=== PATIENT | female | born 1950 | race Caucasian/White ===

== ENCOUNTER 2023-08-19 16:22 | Emergency (ER) | payer MEDICARE, SELFPAY ==
--- NOTE | 2023-08-19 16:27 | ED.GENADULT ---
HPI - General Adult General Chief complaint: Psychiatric Symptoms Stated complaint: crisis eval Source: patient and family (patient's ) Mode of arrival: wheelchair Limitations: no limitations History of Present Illness HPI narrative: Patient is a 72 year old assigned female at with a history of fibromyalgia presenting to the emergency department today with fixed paranoid delusions. Patient's states that the patient is having delusions that she needs help with. Patient's states that the patient is convinced that she is being electrocuted in her house and her neighbors are trying to kill her. Patient denies any dizziness, lightheadedness, abdominal pain, nausea, vomiting, fever, chills, blurry vision, double vision, loss of vision, chest pain, difficulty breathing, shortness of breath, back pain, night sweats, pain with urination, increased urinary frequency, increased urinary urgency, blood in her urine or stool, syncope or a near syncopal episode, recent trauma or falls, bowel incontinence, bladder incontinence, bowel retention, bladder retention, or any other complaints at this time. Onset (ago): week(s) Relieving factors: none Exacerbating factors: none Associated symptoms: denies other symptoms Treatments prior to arrival: none Related Data Allergies Allergy/AdvReac Type Severity Reaction Status Date / Time cefaclor [From [facility]] Allergy Anaphylaxis Verified 08/19/23 16:33 Review of Systems Constitutional: Constitutional: Reports no additional constitutional complaints, Denies chills, Denies fever(s) and Denies night sweats Eyes: Eyes: Reports no additional eye complaints, Denies blurry vision, Denies change in vision, Denies diplopia, Denies eye discharge, Denies loss of vision and Denies eye pain ENT: Denies dizziness Cardiovascular: Cardiovascular: Reports no additional cardiovascular complaints, Denies chest pain, Denies lightheadedness, Denies Loss of Consciousness and Denies dyspnea Respiratory: Respiratory: Reports no additional respiratory complaints and Denies dyspnea Gastrointestinal: Gastrointestinal: Reports no additional gastrointestinal complaints, Denies abdominal pain, Denies melena, Denies hematochezia, Denies change in bowel habits and Denies change in stool character Genitourinary: Genitourinary: Denies hematuria, Denies urinary frequency, Denies dysuria, Denies urinary incontinence, Denies urinary hesitancy and Denies urinary urgency Musculoskeletal: Musculoskeletal: Reports no additional musculoskeletal complaints, Denies numbness and Denies tingling Neurologic: Denies dizziness, Denies loss of vision, Denies numbness and Denies tingling Psychiatric: Psychiatric: Reports paranoia Endocrine: Endocrine: Reports no additional endocrine complaints Hematologic/Lymphatic: Hematologic/Lymphatic: Reports no additional hematologic/lymphatic complaints Allergic/Immunologic: Allergic/Immunologic: Reports no additional allergic/immunologic complaints PMFSH Past Medical History Attestation statement: The following information was validated with the patient. (all information validated with the patient's ) Source: old records reviewed, obtained from family (patient's provided additional history and confirmed the history provided by the patient.) and nursing notes reviewed Social History Social History Advance Directives: No Physical Exam ED Vital Signs: Vital Signs - 24 hr 08/19/23 16:29 08/19/23 20:06 Temperature 97.7 F 98.3 F Pulse Rate 53 61 Respiratory Rate 16 16 Blood Pressure 93/42 L 164/53 H Pulse Oximetry 97 95 Oxygen Delivery Method Room Air Room Air BMI result Body Mass Index 16.6 Const General: cooperative, no acute distress, alert and awake Nutritional Appearance: well nourished Orientation/consciousness: patient oriented x3 Limitations: no limitations HENMT Head: Yes normal to inspection and Yes atraumatic Ears: hearing grossly normal bilaterally and external ears normal General nose exam: Normal external nose present, no nasal discharge noted and no epistaxis Face and sinus: Yes normal facial exam, No abrasion and No laceration Mouth: Normal oral and palatal mucosa present, no drooling and no muffled voice Eyes General: appearance normal, both eyes and all related structures Periorbital: periorbital findings normal Eyelids: Yes eyelids normal Conjunctivae: conjunctivae normal Pupils: Equal, round and reactive pupils present EOM: EOMs intact bilaterally Neck Neck: Yes normal visual inspection, Yes full ROM and Yes no lymphadenopathy Chest Chest palpation & inspection: normal inspection of the chest Resp Effort & Inspection: normal respiratory effort and able to speak in complete sentences GI Inspection: Yes normal to inspection Neuro General: patient oriented x3 and moves all extremities Cranial nerves: Yes Equal, round and reactive pupils present Cognition (Neuro): normal cognition Motor exam (neuro): 5/5 motor strength present throughout Sensory Exam: Normal double simultaneous stimulation for sensation Coordination: [id number] test normal Extrem General: Yes normal to inspection, Yes full ROM and Yes capillary refill normal Psych Speech and movement: Normal speech and movement present Attitude: cooperative Thought content: Paranoid delusions present Course Course Course Narrative: RME performed by Rosa Denise PA-C. Patient is a 72 year old assigned female at presenting to the emergency department with fixed delusions. Patient believes that she is being electrocuted in her home and her neighbors are trying to kill her. Labs and swabs ordered. Patient placed back in the waiting room pending room availability and results. Medical Decision Making Medical Decision Making MDM Narrative: Patient is a 72 year old assigned female at with a history of fibromyalgia presenting to the emergency department today with paranoid delusions. Patient's physical exam showed an individual with paranoid delusions but was otherwise unremarkable. Patient's blood work was unremarkable. Patient's EKG was unremarkable. Patient and her left the department without completing treatment. Patient and her left before myself or any of the other emergency department providers could review or explain physical exam findings, test results, need or lack there of for additional testing, CARE team evaluation, treatment options, or any treatment plans. Differential Diagnosis Differential Diagnoses: The differential diagnosis associated with the presentation includes Paranoid delusions Delusions Cognitive decline Dementia Admission/Observation Consideration of admission/observation: Escalation of care including admission/observation considered Patient and her left the department without completing treatment and therefore left before an admission decision could be made. Lab Data MDM Lab Attestation statement: I reviewed the patient's lab results. My interpretation of these studies and their corresponding values is that they are grossly normal. 08/19/23 17:38 08/19/23 17:38 Labs: Lab Results 08/19/23 Range/Units 17:38 WBC 8.9 (4.8-10.8) X10*3/uL RBC 4.06 L (4.20-5.50) X10*6/uL Hgb 11.8 L (12.0-16.0) g/dl Hct 38.5 (37.0-47.0) % MCV 94.8 (80.0-98.0) fL MCH 29.1 (27.0-33.0) pg MCHC 30.6 L (31.0-35.0) g/dl RDW 13.3 (11.0-16.0) % Plt Count 282 (160-400) X10*3/uL MPV 9.5 (9.4-12.3) fL Immature Gran % (Auto) 0.3 (0.0-0.4) % Neut % (Auto) 56.0 (45-73) % Lymph % (Auto) 28.3 (20-40) % [place]ock % (Auto) 5.9 (2-11) % Eos % (Auto) 8.2 H (0-4) % Baso % (Auto) 1.3 (0-2) % Lymph # (Auto) 2.5 (1.2-4.9) X10*3/uL [place]ock # (Auto) 0.5 (0.1-1.2) X10*3/uL Eos # (Auto) 0.7 H (0.0-0.4) X10*3/uL Baso # (Auto) 0.1 (0.0-0.2) X10*3/uL Abs Immat Gran (auto) 0.03 (0.00-0.03) X10*3/uL Absolute Neuts (auto) 5.0 (2.0-8.3) x10*3/uL Absolute Nucleated RBC 0.000 (0.0-0.012) X10*3/uL Nucleated RBC % (auto) 0.0 (0.0-0.2) /100WBC Sodium 142 (135-145) mmol/L Potassium 3.8 (3.3-5.1) mmol/L Chloride 106 (96-108) mmol/L Carbon Dioxide 29 (22-29) mmol/L Anion Gap 11 L (12-20) BUN 12 (9-16) mg/dL Creatinine 1.04 (0.5-1.4) mg/dL Estim Creat Clear Calc 34.4 Estimated GFR 52 Random Glucose 84 (60-115) mg/dL Calcium 8.9 (8.4-10.2) mg/dL Total Bilirubin 0.3 (0.0-1.0) mg/dL AST 30 (5-31) U/L ALT 14 (0-31) U/L Alkaline Phosphatase 72 (39-117) U/L Total Protein 7.7 (6.5-8.0) g/dL Albumin 4.2 (3.5-5.0) g/dL Salicylates < 5.0 L (15-30) mg/dL Acetaminophen 4 (<30) mcg/mL Ethyl Alcohol < 10 mg/dL COVID-19 (MARIO) Negative (Negative) COVID-19 Clin Com See Note Independent Interpretation I performed an independent interpretation of an: EKG Interpretation: Vent. Rate: 051 BPM Atrial Rate: 051 BPM P-R Int: 152 ms QRS Dur: 082 ms QT Int: 462 ms P-R-T Axes: 048 075 -61 degrees QTc Int: 425 ms Sinus bradycardia Possible Left atrial enlargement Possible Lateral infarct , age undetermined T wave abnormality, consider inferior ischemia Abnormal ECG No previous ECGs available DD/ 1727 Independent Historian Clinical information obtained from an independent historian. History obtained from or confirmed by: Spouse (patient's provided additional history and confirmed the history provided by the patient.) Discharge Plan Discharge Clinical Impression: Paranoid delusion Patient Disposition: Left W/O Completing Treatment Interventions: [place]-Suicide Risk Severity Scale Last Done: 08/19/23 22:32 Discharge Date/Time: 08/19/23 22:33
[2023-08-19 16:29] VITALS: BP 93/42; PULSE 53; RESP 16; TEMP 36.5; O2SAT 97; BMI 16.6
--- NOTE | 2023-08-19 16:30 | ECG_ITS ---
Test Reason : med clearance Blood Pressure : / mmHG Vent. Rate : 051 BPM Atrial Rate : 051 BPM P-R Int : 152 ms QRS Dur : 082 ms QT Int : 462 ms P-R-T Axes : 048 075 -61 degrees QTc Int : 425 ms Sinus bradycardia Possible Left atrial enlargement Possible Lateral infarct , age undetermined T wave abnormality, consider inferior ischemia Abnormal ECG No previous ECGs available Referred By: Rosa Denise Electronically Signed By:DAMION HERNANDES
[2023-08-19 17:43] LABS: MANUAL DIFF FLAG NO
[2023-08-19 17:45] LABS: Basophils Absolute Auto 0.1 X10*3/uL (0.0-0.2); Basophils Percent Auto 1.3 % (0-2); Eosinophils Absolute Auto 0.7 X10*3/uL (0.0-0.4); Eosinophils Percent Auto 8.2 % (0-4); Hematocrit 38.5 % (37.0-47.0); Hemoglobin 11.8 g/dl (12.0-16.0); Imm Gran Abs Auto 0.03 X10*3/uL (0.00-0.03); Imm Gran Pct Auto 0.3 % (0.0-0.4); Lymphocytes Absolute Auto 2.5 X10*3/uL (1.2-4.9); Lymphocytes Percent Auto 28.3 % (20-40); Mean Corpuscular HGB Conc 30.6 g/dl (31.0-35.0); Mean Corpuscular Hemoglobin 29.1 pg (27.0-33.0); Mean Corpuscular Volume 94.8 fL (80.0-98.0); Mean Platelet Volume 9.5 fL (9.4-12.3); Monocytes Absolute Auto 0.5 X10*3/uL (0.1-1.2); Monocytes Percent Auto 5.9 % (2-11); Platelet Count 282 X10*3/uL (160-400); Red Blood Count 4.06 X10*6/uL (4.20-5.50); Red Cell Distribution Width 13.3 % (11.0-16.0); White Blood Count 8.9 X10*3/uL (4.8-10.8)
[2023-08-19 18:00] LABS: Alanine Aminotransferase 14 U/L (0-31); Albumin Level 4.2 g/dL (3.5-5.0); Alkaline Phosphatase 72 U/L (39-117); Anion Gap 11 (12-20); Aspartate Amino Transferase 30 U/L (5-31); Bilirubin Total 0.3 mg/dL (0.0-1.0); Blood Urea Nitrogen 12 mg/dL (9-16); Calcium 8.9 mg/dL (8.4-10.2); Carbon Dioxide 29 mmol/L (22-29); Chloride 106 mmol/L (96-108); Creatinine Clr Calc Pharmacy 34.4; Estimated Glomerular Filt Rate 52; Ethanol < 10 mg/dL; Glucose Random 84 mg/dL (60-115); Potassium 3.8 mmol/L (3.3-5.1); Sodium 142 mmol/L (135-145); Total Protein 7.7 g/dL (6.5-8.0)
[2023-08-19 18:01] LABS: Acetaminophen LAB 4 mcg/mL (<30); Salicylate < 5.0 mg/dL (15-30)
[2023-08-19 18:05] LABS: COVID-19 Test Negative (Negative); IDNOW Serial# BCCEAD1C
[2023-08-19 20:06] VITALS: BP 164/53; PULSE 61; RESP 16; TEMP 36.8; O2SAT 95
--- NOTE | 2023-08-19 22:28 | PC.NURSE ---
No answer in the WR, calling pts cell phone with no answer.
--- NOTE | 2023-08-19 22:32 | PC.NURSE ---
Per MELISSA Howie, pt denied SI during Triage.
== END 2023-08-19 22:33 | disposition left against medical advice (07) ==
LOC: HO.ED 22:21
PROVIDERS: Physician Assistant Medical; Emergency Provider Emergency Medicine; PCP Internal Medicine
DX: F22 Delusional disorders (principal); R00.1 Bradycardia, unspecified; Z11.52 Encounter for screening for COVID-19; Z20.822 Contact with and (suspected) exposure to COVID-19; Z79.899 Other long term (current) drug therapy
CPT/HCPCS: 80053; 80143; 80179; 80307; 85025; 87635; 93005; 99283

== ENCOUNTER → 2023-08-19 16:30 | Outpatient (BNV) | payer MEDICARE, SELFPAY | PROVIDERS: Emergency Provider Emergency Medicine; PCP Internal Medicine; Visit Provider Internal Medicine | DX: R00.1 Bradycardia, unspecified (principal); R94.31 Abnormal electrocardiogram [ECG] [EKG] | CPT/HCPCS: 93010 ==

== ENCOUNTER 2023-08-24 18:01 | Inpatient (IN) | payer MEDICARE, OTHER, SELFPAY ==
--- NOTE | ~2023-08-24 | XR_ITS ---
EXAMINATION: XR LEFT HIP WITH AP PELVIS XR KNEE, LEFT XR ANKLE, LEFT CLINICAL INFORMATION: Mechanical fall. Pain everywhere. COMPARISON: None TECHNIQUE: AP and frog-leg lateral views of the left hip and an AP view of the pelvis. AP and lateral views of the left knee. AP, lateral, and oblique views of the left ankle. FINDINGS: Pelvis and left hip: No fracture. Hip joint spaces are well maintained. Alignment is anatomic. Sacroiliac joints and pubic symphysis are normal. Bones are osteopenic. Small subtle foci of soft tissue calcification are present at the greater trochanteric insertion of the hip abductors. There is degenerative disc disease in the lower lumbar spine with associated facet arthropathy. Left knee: No fracture or malalignment. Minimal patellofemoral and medial compartment osteoarthritis with small marginal osteophytes. Subchondral cystic changes present at the patella. Lateral compartment is unremarkable. Minimal enthesopathic spurring at the quadriceps tendon insertion. Left ankle: Soft tissue swelling at the left ankle is most pronounced laterally on the lateral malleolus anteromedially at the distal tibial metaphysis. There are focal areas of cortical irregularity at the medial malleolus and lateral malleolar tip which are most concerning for nondisplaced fractures. The medial malleolar fracture is a horizontal orientation and extends to the articular surface. Lateral malleolar fracture are likely involves the distal tip without appreciable involvement of the syndesmosis. No additional fractures are identified. Small enthesopathic spur is present at the Achilles tendon insertion on the calcaneus. XR/XR ankle LT 2V IMPRESSION: 1. Subtle nondisplaced fractures of the left medial and lateral malleoli with marked surrounding soft tissue swelling. 2. No acute fracture or malalignment at the pelvis, left hip, and left knee. 3. Minimal osteoarthritis in the left knee. 4. Degenerative disc disease in the lower lumbar spine. 5. Osteopenia.
--- NOTE | ~2023-08-24 | CT_ITS ---
EXAMINATION: CT HEAD WITHOUT CONTRAST CLINICAL INFORMATION: Altered mental status COMPARISON: None. TECHNIQUE: Contiguous axial imaging was performed from the skull base to vertex without intravenous administration of contrast. Coronal and sagittal reformatted images are performed at the CT scanner. [This CT examination was performed using dose optimization techniques as appropriate, variously including the following: *Automated exposure control *Adjustment of mA and/or kV according to patient size (this includes techniques or standardized protocols for targeted exams where dose is matched to indication/reason for exam; i.e. extremities or head) *Use of iterative reconstruction technique] DLP: 599 mGy-cm. FINDINGS: There is no evidence of acute intracranial hemorrhage or territorial infarction. No abnormal mass-effect or midline shift is seen. Mathew to white matter differentiation is well preserved. No extra-axial fluid collections are identified. The ventricles are normal in size. There is no abnormal attenuation within the brain parenchyma. There is no osseous abnormality. The mastoid air cells and visualized portions of the paranasal sinuses are well-aerated. CT/CT head/brain wo IV con IMPRESSION: No acute intracranial pathology.
--- NOTE | ~2023-08-24 | XR_ITS ---
EXAMINATION: XR LEFT HIP WITH AP PELVIS XR KNEE, LEFT XR ANKLE, LEFT CLINICAL INFORMATION: Mechanical fall. Pain everywhere. COMPARISON: None TECHNIQUE: AP and frog-leg lateral views of the left hip and an AP view of the pelvis. AP and lateral views of the left knee. AP, lateral, and oblique views of the left ankle. FINDINGS: Pelvis and left hip: No fracture. Hip joint spaces are well maintained. Alignment is anatomic. Sacroiliac joints and pubic symphysis are normal. Bones are osteopenic. Small subtle foci of soft tissue calcification are present at the greater trochanteric insertion of the hip abductors. There is degenerative disc disease in the lower lumbar spine with associated facet arthropathy. Left knee: No fracture or malalignment. Minimal patellofemoral and medial compartment osteoarthritis with small marginal osteophytes. Subchondral cystic changes present at the patella. Lateral compartment is unremarkable. Minimal enthesopathic spurring at the quadriceps tendon insertion. Left ankle: Soft tissue swelling at the left ankle is most pronounced laterally on the lateral malleolus anteromedially at the distal tibial metaphysis. There are focal areas of cortical irregularity at the medial malleolus and lateral malleolar tip which are most concerning for nondisplaced fractures. The medial malleolar fracture is a horizontal orientation and extends to the articular surface. Lateral malleolar fracture are likely involves the distal tip without appreciable involvement of the syndesmosis. No additional fractures are identified. Small enthesopathic spur is present at the Achilles tendon insertion on the calcaneus. XR/XR hip LT w PEL1V IMPRESSION: 1. Subtle nondisplaced fractures of the left medial and lateral malleoli with marked surrounding soft tissue swelling. 2. No acute fracture or malalignment at the pelvis, left hip, and left knee. 3. Minimal osteoarthritis in the left knee. 4. Degenerative disc disease in the lower lumbar spine. 5. Osteopenia.
--- NOTE | ~2023-08-24 | XR_ITS ---
EXAMINATION: XR CHEST CLINICAL INFORMATION: Cough. COMPARISON: None available. TECHNIQUE: Frontal view of the chest was obtained. FINDINGS: The cardiomediastinal silhouette is within normal limits. There is mild diffuse increased interstitial markings. There is no focal lung consolidation or pleural effusion. The bony structures and soft tissues are unremarkable. XR/XR chest 1V IMPRESSION: Mild diffuse increased markings suspected to be chronic. No focal lung consolidation or pleural effusion
--- NOTE | ~2023-08-24 | XR_ITS ---
EXAMINATION: XR CHEST CLINICAL INFORMATION: Cough, SOB, Covid positive COMPARISON: None available. TECHNIQUE: Frontal view of the chest was obtained. FINDINGS: The lungs are hyperinflated and clear of acute pneumonic process. Focal haziness is seen in the left upper lobe and right upper lobe question postsurgical changes. There is increased interstitial markings in both lungs. There is a 3 mm nodule right midlung. There is no pleural effusion. The heart size and pulmonary vascularity is normal. There is mild dextroscoliosis mid lumbar spine XR/XR chest 1V IMPRESSION: Hyperinflated lungs with no acute consolidation. Mild focal haziness in both upper lobes question postsurgical changes. Correlate clinically. Small 3 mm nodule right midlung.
--- NOTE | ~2023-08-24 | CT_ITS ---
EXAMINATION: CT HEAD WITHOUT CONTRAST CLINICAL INFORMATION: Head injury. COMPARISON: None available. TECHNIQUE: Contiguous axial imaging was performed from the skull base to vertex without intravenous administration of contrast. This CT examination was performed using dose optimization techniques as appropriate, variously including the following: *Automated exposure control *Adjustment of mA and/or kV according to patient size (this includes techniques or standardized protocols for targeted exams where dose is matched to indication/reason for exam; i.e. extremities or head) *Use of iterative reconstruction technique DLP: 573 mGy-cm FINDINGS: There is no acute intra-axial, extra-axial bleed, masses or midline shift. There is no acute infarction evolution. There is no edema. The garcia to white matter differentiation is maintained normal. The lateral ventricles are symmetrical in size and configuration without enlargement. Bone windows reveal no calvarial abnormality. There is no scalp soft tissue abnormality. Bilateral paranasal sinuses and mastoid air cells are well-aerated. CT/CT head/brain wo IV con IMPRESSION: No acute intracranial process seen. .
[2023-08-24 18:37] VITALS: BP 156/62; PULSE 58; RESP 16; TEMP 36.1; O2SAT 97; BMI 17.8
--- NOTE | 2023-08-24 19:30 | ED_ITS ---
HPI - Psych General Chief Complaint: Behavioral Concerns Stated Complaint: in pain, behavioral Time Seen by Provider: 08/24/23 19:29 Source: patient and family Mode of arrival: ambulatory Limitations: no limitations History of Present Illness HPI Narrative: Patient with multiple comorbid conditions including major depression been to various hospitals for last few months for paronoia , was seen at [facility] 05/03/2023 admitted seen by psychiatrist diagnose as unspecified psychotic disorder, major depressive disorder advised to start on olanzapine 2.5 mg t.i.d. comes here as patient has been very paranoid and delusional have a problem with neighbors wants her feel that she is sitting on a chair giving her electric shocks. Denied any SI or HI Related Data Allergies Allergy/AdvReac Type Severity Reaction Status Date / Time cefaclor [From Ceclor] Allergy Anaphylaxis Verified 08/19/23 16:33 Review of Systems 2 Review of Systems: Yes all other systems are reviewed and are negative PMFSH Past Medical History Medical History Chronic back pain Hypothyroidism Takotsubo cardiomyopathy Asthma Latent tuberculosis Major depression Interstitial lung disease Sjogren syndrome with lung involvement Social History Social History Smoked in Last 30 Days: No Use of substances other than those prescribed or required for medical reasons: No Advance Directives: Yes Advance Directives Information Provided: No Advance Directives on File: No Physical Exam 2 Vital Signs: Vital Signs: Last Vital Signs Temp 98.5 F 08/25/23 01:26 Pulse 77 08/25/23 01:26 Resp 16 08/25/23 01:26 BP 114/42 L 08/25/23 01:26 Pulse Ox 98 08/25/23 01:26 O2 Del Method Room Air 08/25/23 01:26 BMI result Body Mass Index 17.8 Appearance: Alert. Oriented X3. No acute distress. Eyes: PERRLA, No Nystagmus ENT: Pharynx normal. Oral Mucosa moist Neck: Normal inspection. Neck supple. CVS: Normal heart rate and rhythm. Pulses normal. Respiratory: No respiratory distress. Equal air entry bilateral, no wheezing/rales/rhonchi Abdomen: Soft and nontender. Bowel sounds are present, no mass palpable, no CVA tenderness Skin: Skin warm and dry. Normal skin color. Normal skin turgor. Extremities: No lower extremity edema. No calf tenderness psych: Mood stable irrational thoughts mini-mental status exam with mild dementia forgetful 1/3 in 3 minutes , fair judgment no hallucinations Neuro: Oriented X 3. No motor deficit. No sensory deficit.No cerebellar signs , cranial nerves II-XII intact Medical Decision Making Medical Decision Making [facility] Narrative: Patient is psychotic disorder NOS with depression with slight dementia clinical was seen at [facility] advised to start on Zyprexa which she is not taking patient's is frustrated unable to manage at home will consult care team and starting Zyprexa 2.5 mg 3 times a day Differential Diagnosis Differential Diagnoses: The differential diagnosis associated with the presentation includes Psychotic disorder NOS/depression/dementia Lab Data [facility] Lab Attestation statement: I reviewed the patient's lab results. 08/24/23 19:55 08/24/23 19:55 Labs: Lab Results 08/24/23 Range/Units 19:55 WBC 10.7 (4.8-10.8) X10*3/uL RBC 3.61 L (4.20-5.50) X10*6/uL Hgb 10.8 L (12.0-16.0) g/dl Hct 34.5 L (37.0-47.0) % MCV 95.6 (80.0-98.0) fL MCH 29.9 (27.0-33.0) pg MCHC 31.3 (31.0-35.0) g/dl RDW 13.3 (11.0-16.0) % Plt Count 280 (160-400) X10*3/uL MPV 9.9 (9.4-12.3) fL Immature Gran % (Auto) 0.3 (0.0-0.4) % Neut % (Auto) 60.3 (45-73) % Lymph % (Auto) 20.6 (20-40) % [place] % (Auto) 7.4 (2-11) % Eos % (Auto) 10.4 H (0-4) % Baso % (Auto) 1.0 (0-2) % Lymph # (Auto) 2.2 (1.2-4.9) X10*3/uL [place] # (Auto) 0.8 (0.1-1.2) X10*3/uL Eos # (Auto) 1.1 H (0.0-0.4) X10*3/uL Baso # (Auto) 0.1 (0.0-0.2) X10*3/uL Abs Immat Gran (auto) 0.03 (0.00-0.03) X10*3/uL Absolute Neuts (auto) 6.5 (2.0-8.3) x10*3/uL Absolute Nucleated RBC 0.000 (0.0-0.012) X10*3/uL Nucleated RBC % (auto) 0.0 (0.0-0.2) /100WBC Sodium 142 (135-145) mmol/L Potassium 4.2 (3.3-5.1) mmol/L Chloride 111 H (96-108) mmol/L Carbon Dioxide 24 (22-29) mmol/L Anion Gap 11 L (12-20) BUN 16 (9-16) mg/dL Creatinine 1.00 (0.5-1.4) mg/dL Estim Creat Clear Calc 38.4 Estimated GFR 54 Random Glucose 103 (60-115) mg/dL Calcium 8.9 (8.4-10.2) mg/dL Total Bilirubin 0.2 (0.0-1.0) mg/dL Direct Bilirubin < 0.2 (0.0-0.5) mg/dL AST 24 (5-31) U/L ALT 15 (0-31) U/L Alkaline Phosphatase 66 (39-117) U/L Total Protein 7.4 (6.5-8.0) g/dL Albumin 4.1 (3.5-5.0) g/dL Lipase 23 (8-78) U/L Urine Color Yellow Urine Appearance Clear Urine pH 5.5 (5.0-9.0) Ur Specific Morton >= 1.030 H (1.005-1.025) Urine Protein Trace (Neg-Trace) mg/dL Urine Glucose (UA) Negative (Negative) mg/dL Urine Ketones Negative (Negative) mg/dL Urine Blood Negative (Negative) Urine Nitrite Negative (Negative) Ur Leukocyte Esterase Negative (Negative) Influenza Type A (PCR) NEGATIVE (Negative) Influenza Type B (PCR) NEGATIVE (Negative) RSV RNA Qual (PCR) NEGATIVE (Negative) SARS-CoV-2 RNA (RT-PCR) NEGATIVE (Negative) Independent Interpretation I performed an independent interpretation of an: CT Scan Interpretation: No acute Radiology Impression Discussion of test interpretation with radiology: I have reviewed the radiologist's reading. Discharge Plan Discharge Clinical Impression: Psychotic disorder, Major depression Patient Disposition: Still a Patient
[2023-08-24 19:42] VITALS: BP 108/54; PULSE 65; RESP 16; TEMP 37.2; O2SAT 93
--- NOTE | 2023-08-24 19:57 | MHC.EDTECH ---
This pct just assumed care of pt vitals taken ,pt was assist unto bedside commode ,urine sample collected ,blood draw ,rsv/covid swab collected and sent to lab .
[2023-08-24 20:01] LABS: MANUAL DIFF FLAG NO
[2023-08-24 20:04] LABS: Appearance Urine Clear; Color Urine Yellow; Glucose Urine UA Negative (Negative); Leukocyte Esterase Urine Negative (Negative); Nitrite Urine Negative (Negative); PH 5.5 (5.0-9.0); Specific Gravity - Urine >= 1.030 (1.005-1.025); Urine Blood Negative (Negative); Urine Ketones Negative (Negative); Urine Protein Trace mg/dL (Neg-Trace)
[2023-08-24 20:14] LABS: Basophils Absolute Auto 0.1 X10*3/uL (0.0-0.2); Eosinophils Absolute Auto 1.1 X10*3/uL (0.0-0.4); Eosinophils Percent Auto 10.4 % (0-4); Hematocrit 34.5 % (37.0-47.0); Hemoglobin 10.8 g/dl (12.0-16.0); Imm Gran Abs Auto 0.03 X10*3/uL (0.00-0.03); Imm Gran Pct Auto 0.3 % (0.0-0.4); Lymphocytes Absolute Auto 2.2 X10*3/uL (1.2-4.9); Lymphocytes Percent Auto 20.6 % (20-40); Mean Corpuscular HGB Conc 31.3 g/dl (31.0-35.0); Mean Corpuscular Hemoglobin 29.9 pg (27.0-33.0); Mean Corpuscular Volume 95.6 fL (80.0-98.0); Mean Platelet Volume 9.9 fL (9.4-12.3); Monocytes Absolute Auto 0.8 X10*3/uL (0.1-1.2); Monocytes Percent Auto 7.4 % (2-11); Neutrophils Absolute Auto 6.5 x10*3/uL (2.0-8.3); Neutrophils Percent Auto 60.3 % (45-73); Platelet Count 280 X10*3/uL (160-400); Red Blood Count 3.61 X10*6/uL (4.20-5.50); Red Cell Distribution Width 13.3 % (11.0-16.0); White Blood Count 10.7 X10*3/uL (4.8-10.8)
[2023-08-24 20:18] LABS: Alanine Aminotransferase 15 U/L (0-31); Albumin Level 4.1 g/dL (3.5-5.0); Alkaline Phosphatase 66 U/L (39-117); Anion Gap 11 (12-20); Aspartate Amino Transferase 24 U/L (5-31); Bilirubin Direct < 0.2 mg/dL (0.0-0.5); Bilirubin Total 0.2 mg/dL (0.0-1.0); Blood Urea Nitrogen 16 mg/dL (9-16); Calcium 8.9 mg/dL (8.4-10.2); Carbon Dioxide 24 mmol/L (22-29); Chloride 111 mmol/L (96-108); Creatinine Clr Calc Pharmacy 38.4; Estimated Glomerular Filt Rate 54; Glucose Random 103 mg/dL (60-115); Lipase 23 U/L (8-78); Potassium 4.2 mmol/L (3.3-5.1); Sodium 142 mmol/L (135-145); Total Protein 7.4 g/dL (6.5-8.0)
[2023-08-24 20:39] LABS: Influenza A PCR NEGATIVE (Negative); Influenza B PCR NEGATIVE (Negative); Resp Syncy Virus RNA Qual PCR NEGATIVE (Negative); SARS COV2 PCR INHOUSE NEGATIVE (Negative)
[2023-08-25 01:26] VITALS: BP 114/42; PULSE 77; RESP 16; TEMP 36.9; O2SAT 98
--- NOTE | 2023-08-25 01:51 | PC.NURSE ---
assist pt out of bed and onto bedside commode. pt back in bed at this time, resting comfortably
--- NOTE | 2023-08-25 02:09 | MHC.EDTECH ---
VITALS TAKEN ,PATIENT BELONGING LIST ,PT HAD A ROSA VALERIANO AND ORANGE JUICE TO DRINK
--- NOTE | 2023-08-25 03:08 | PC.NURSE ---
pt resting quietly with eyes closed, breathing even and unlabored, no apparent distress noted at this time
--- NOTE | 2023-08-25 03:50 | PC.NURSE ---
per MD [place], med rec done according to [facility] discharge paperwork from D/C 05/06/23. pt unable to accurately confirm meds. [facility] report in chart.
--- NOTE | 2023-08-25 04:34 | PC.NURSE ---
belongings in pod- locker 12 , 2 small pill cases with unknown pills placed in purse, oxycodone bottle will be brought to pharmacy
[2023-08-25 05:00] VITALS: RESP 16
[2023-08-25 07:08] VITALS: BP 125/55; PULSE 73; RESP 16; TEMP 37; O2SAT 93
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
--- NOTE | 2023-08-25 11:04 | PHA.MEDREC ---
Pharmacy Consult ? Medication Reconciliation Pharmacy has completed the medication reconciliation. RN DID MED REC USING DISCHARGE SUMMARY FROM APRIL. PATIENT WAS NOT FILLING MOST OF THOSE MEDS BEFORE OR AFTER TIME THERE. PATIENT IS UNRELIABLE. SPOKE TO PA, WILL CHANGE DOSE OF ZOLOFT AND LEVOTHYROXINE
[2023-08-25 12:14] VITALS: BP 167/69; PULSE 66; RESP 16; O2SAT 98
[2023-08-25] MEDS: OLANZapine 2.5 MG TABLET PO (12:15)
[2023-08-25] MEDS: Sertraline HCL 25 MG TABLET PO (12:15)
[2023-08-25] MEDS: Atorvastatin Calcium 40 MG TABLET PO (12:15)
[2023-08-25] MEDS: oxyCODONE HCl Immed Release 15 MG TABLET PO (12:15)
[2023-08-25] MEDS: Aspirin Enteric Coated 81 MG TABLET.DR PO (12:15)
--- NOTE | 2023-08-25 12:20 | PC.NURSE ---
pt medicated with zyprea NILTONN. pt up to the commode, reporting that the floor is shocking her. getting distressed that she cannot stand on the floor. reporting also that the air is electric and is hurting her skin. pt disorganized and delusional .
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
[2023-08-25] MEDS: Omeprazole 40 MG CAPSULE.DR PO (16:38)
[2023-08-25] MEDS: Dicyclomine HCl 10 MG CAPSULE 20 MG PO ×2 (16:38→21:47)
--- NOTE | 2023-08-25 18:48 | PC.NURSE ---
pt resting in bed at this time, NAD, skin PWD. dinner placed at bedside as pt appears to be resting with eyes closed. plan for admit to [facility] tomorrow 08/26. pt ambulates to commode with standby assist.
[2023-08-25 20:17] VITALS: BP 147/53; PULSE 74; RESP 18; TEMP 37.2; O2SAT 100
[2023-08-25 21:46] VITALS: BP 110/49; PULSE 81
[2023-08-25] MEDS: risperiDONE 0.5 MG TABLET PO (21:47)
--- NOTE | 2023-08-25 22:00 | PC.NURSE ---
pt bp 110/49 HR 81 at time this rn attempting to medicate pt with metoprolol 12.5mg , this rn consulted with dr cano, per md hold med and recheck bp
[2023-08-26] VITALS: BP 135/45; PULSE 69; RESP 16
--- NOTE | 2023-08-26 | ECG_ITS ---
Test Reason : [facility] Blood Pressure : / mmHG Vent. Rate : 058 BPM Atrial Rate : 058 BPM P-R Int : 152 ms QRS Dur : 078 ms QT Int : 466 ms P-R-T Axes : 051 076 -26 degrees QTc Int : 457 ms Sinus bradycardia T wave abnormality, consider inferior ischemia T wave abnormality, consider anterolateral ischemia Abnormal ECG When compared with ECG of 19-AUG-2023 17:27, No significant change was found Referred By: Juan Damon Electronically Signed By:Maulik Salinas
--- NOTE | 2023-08-26 00:06 | PC.NURSE ---
@ 0000 bp 135/45 HR [address] cano aware of repeat HR and BP per dr cano pt okay to give 12.5mg metoprolol dose. rn primary care aware
[2023-08-26] MEDS: Metoprolol Tartrate 12.5 MG HALFTAB PO ×3 (00:08→20:47)
[2023-08-26 06:05] VITALS: BP 160/77; PULSE 72
[2023-08-26] MEDS: Levothyroxine Sodium 100 MCG TABLET PO (06:07)
[2023-08-26] MEDS: Omeprazole 40 MG CAPSULE.DR PO ×2 (06:07→15:48)
--- NOTE | 2023-08-26 06:11 | PC.NURSE ---
pt awake calm and cooperative. pt medicated according to mar. pt continues to deny SI/HI
[2023-08-26] MEDS: valACYclovir HCL 500 MG TABLET PO (09:15)
[2023-08-26] MEDS: Atorvastatin Calcium 40 MG TABLET PO (09:15)
[2023-08-26] MEDS: Aspirin Enteric Coated 81 MG TABLET.DR PO (09:15)
[2023-08-26] MEDS: Dicyclomine HCl 10 MG CAPSULE 20 MG PO ×3 (09:16→20:47)
[2023-08-26] MEDS: risperiDONE 0.5 MG TABLET PO ×2 (09:16→20:48)
[2023-08-26] MEDS: Sertraline HCL 25 MG TABLET PO (09:16)
[2023-08-26 09:47] VITALS: BP 147/66; PULSE 64; RESP 18; TEMP 36.7; O2SAT 99
--- NOTE | 2023-08-26 09:55 | PC.NURSE ---
Patient alert and oriented, reports slept well past night. Denies pain or discomfort. PO meds as ordered. Plan is for inpatient bed search
[2023-08-26] MEDS: oxyCODONE HCl Immed Release 15 MG TABLET PO ×3 (11:48→23:20)
[2023-08-26] MEDS: Acetaminophen 325 MG TABLET 650 MG PO (12:36)
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
--- NOTE | 2023-08-26 14:09 | MHC.CARE ---
[facility] Bed[facility] conducted, unfortunately no beds avaiable statewide- RAD Team will continue bedsearch tomorrow if deemed necessary
--- NOTE | 2023-08-26 14:23 | PC.NURSE ---
allergies from [facility] added to patient allergy list
[2023-08-26 14:24] LABS: Appearance Urine Clear; Color Urine Yellow; Glucose Urine UA Negative (Negative); Leukocyte Esterase Urine Negative (Negative); Nitrite Urine Negative (Negative); Urine Blood Negative (Negative); Urine Ketones Negative (Negative); Urine Protein Negative (Neg-Trace)
[2023-08-26 14:27] LABS: Amphetamine Screen Urine Not Detected (Not Detect); Barbiturates, Urine Not Detected (Not Detect); Benzodiazepines Screen Urine POSITIVE (Not Detect); Cannabinoid Screen Urine POSITIVE (Not Detect); Cocaine Screen Urine Not Detected (Not Detect); Fentanyl, urine Not Detected (Not Detect); Opiate Screen Urine POSITIVE (Not Detect); Phencyclidine Screen Urine Not Detected (Not Detect)
[2023-08-26 16:18] VITALS: BP 126/52; PULSE 66; RESP 16; O2SAT 98
[2023-08-26 22:39] VITALS: BP 156/67; PULSE 63; RESP 18; O2SAT 99
--- NOTE | 2023-08-27 06:28 | PC.NURSE ---
Patient is alert and oriented x3. She is calm and cooperative, no paranoid or delusional thought process noted, patient denies SI/HI. Patient denies any pain. Patient ambulates with a slow, unsteady gait. She requires assistance of 1 person for ambulation. Patient resting on stretcher bed, eyes closed, RR, even, unlabored.
[2023-08-27] MEDS: Levothyroxine Sodium 100 MCG TABLET PO (06:37)
[2023-08-27] MEDS: Omeprazole 40 MG CAPSULE.DR PO ×2 (06:37→16:35)
[2023-08-27] MEDS: Atorvastatin Calcium 40 MG TABLET PO (08:53)
[2023-08-27] MEDS: Dicyclomine HCl 10 MG CAPSULE 20 MG PO ×3 (08:54→20:13)
[2023-08-27] MEDS: Metoprolol Tartrate 12.5 MG HALFTAB PO ×2 (08:54→20:13)
[2023-08-27] MEDS: valACYclovir HCL 500 MG TABLET PO (08:54)
[2023-08-27] MEDS: risperiDONE 0.5 MG TABLET PO ×2 (08:54→20:13)
[2023-08-27] MEDS: Aspirin Enteric Coated 81 MG TABLET.DR PO (08:54)
--- NOTE | 2023-08-27 08:56 | PC.NURSE ---
Assumed care of pt at this time; pt initially in 22h, however, pt moved into ED2 for comfort. Pt sweating excessively, pt states she has hyperhydrosis which causes this. Pt changed into dry clothing. Stretcher locked and in lowest position for safety. Call kmi within reach; pt able to utilize call kim for assistance as needed.
[2023-08-27 08:59] VITALS: BP 156/79; PULSE 79; RESP 18; TEMP 36.7; O2SAT 97
[2023-08-27 11:56] VITALS: BP 106/44; PULSE 65; RESP 16; TEMP 519.8; TEMP 967.6; O2SAT 97
--- NOTE | 2023-08-27 14:17 | MHC.CARE ---
[facility] conducted, unfortunately no beds avaiable statewide- RAD Team will continue bedsearch tomorrow if deemed necessary
--- NOTE | 2023-08-27 15:15 | MHC.CARE ---
Danae from [employer] called to get a status on pt. She asked if a clinician can contact her when pt receives treatment. [phone] ext [phone]
[2023-08-27 20:10] VITALS: BP 107/64; PULSE 86; RESP 16; TEMP 36.7; O2SAT 98
[2023-08-27] MEDS: oxyCODONE HCl Immed Release 15 MG TABLET PO (20:18)
[2023-08-28] VITALS (7 sets, daily range): BP systolic 111–156; BP diastolic 53–84; PULSE 80–91; RESP 16–20; TEMP 36.1–37.1; O2SAT 95–100; BMI 18.7
[2023-08-28] MEDS: Omeprazole 40 MG CAPSULE.DR PO ×2 (06:13→16:10)
[2023-08-28] MEDS: Levothyroxine Sodium 100 MCG TABLET PO (06:13)
[2023-08-28] MEDS: oxyCODONE HCl Immed Release 15 MG TABLET PO ×3 (10:32→23:34)
[2023-08-28] MEDS: risperiDONE 0.5 MG TABLET PO ×2 (10:33→20:36)
[2023-08-28] MEDS: Atorvastatin Calcium 40 MG TABLET PO (10:33)
[2023-08-28] MEDS: Dicyclomine HCl 10 MG CAPSULE 20 MG PO ×3 (10:33→20:35)
[2023-08-28] MEDS: Metoprolol Tartrate 12.5 MG HALFTAB PO ×2 (10:34→20:36)
[2023-08-28] MEDS: Aspirin Enteric Coated 81 MG TABLET.DR PO (10:36)
[2023-08-28] MEDS: valACYclovir HCL 500 MG TABLET PO (11:44)
--- NOTE | 2023-08-28 13:31 | PC.NURSE ---
REPORT GIVEN TO RO MCKOY ON S1
[2023-08-28] MEDS: diazePAM 5 MG TABLET PO (16:10)
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
[2023-08-28] MEDS: traZODone HCL 50 MG TABLET PO (20:36)
[2023-08-29] MEDS: Omeprazole 40 MG CAPSULE.DR PO ×2 (05:54→16:52)
[2023-08-29] MEDS: Levothyroxine Sodium 100 MCG TABLET PO (05:54)
[2023-08-29 06:00] VITALS: BP 136/74; PULSE 92; RESP 18; TEMP 36.7; O2SAT 98
[2023-08-29 07:00] VITALS: BMI 18.9
[2023-08-29 08:27] LABS: Alanine Aminotransferase 19 U/L (0-31); Albumin Level 3.8 g/dL (3.5-5.0); Alkaline Phosphatase 64 U/L (39-117); Anion Gap 12 (12-20); Aspartate Amino Transferase 25 U/L (5-31); Bilirubin Total 0.3 mg/dL (0.0-1.0); Blood Urea Nitrogen 26 mg/dL (9-16); Carbon Dioxide 28 mmol/L (22-29); Chloride 101 mmol/L (96-108); Cholesterol 156 mg/dL (<200); Creatinine Clr Calc Pharmacy 44.8; Estimated Glomerular Filt Rate > 60; Glucose Fasting 103 mg/dL (60-99); HDL Cholesterol 67 mg/dL (>40); LDL Cholesterol Calculated 70 mg/dL (<100); Potassium 3.8 mmol/L (3.3-5.1); Sodium 137 mmol/L (135-145); Triglycerides 96 mg/dL (<150)
[2023-08-29 08:39] LABS: Estimated Average Glucose 120 mg/dL; Hemoglobin A1c % 5.8 % (<6.0)
[2023-08-29 08:42] LABS: Thyroid Stimulating Hormone 11.36 uIU/mL (0.32-4.0)
[2023-08-29 08:50] LABS: Vitamin B12 468 pg/mL (200-900)
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
[2023-08-29] MEDS: Aspirin Enteric Coated 81 MG TABLET.DR PO (09:38)
[2023-08-29] MEDS: valACYclovir HCL 500 MG TABLET PO (09:39)
[2023-08-29] MEDS: Metoprolol Tartrate 12.5 MG HALFTAB PO ×2 (09:39→20:57)
[2023-08-29] MEDS: Dicyclomine HCl 10 MG CAPSULE 20 MG PO ×3 (09:39→20:57)
[2023-08-29] MEDS: risperiDONE 0.5 MG TABLET PO ×2 (09:39→20:57)
[2023-08-29] MEDS: Atorvastatin Calcium 40 MG TABLET PO (09:39)
[2023-08-29] MEDS: oxyCODONE HCl Immed Release 15 MG TABLET PO ×3 (09:42→21:01)
[2023-08-29 19:30] VITALS: BP 128/63; PULSE 79; RESP 18; TEMP 36.5; O2SAT 95
[2023-08-29] MEDS: Sennosides/Docusate Sodium TABLET 1 TAB PO (20:57)
[2023-08-30] MEDS: traZODone HCL 50 MG TABLET PO (00:17)
[2023-08-30] MEDS: Omeprazole 40 MG CAPSULE.DR PO ×2 (06:22→15:48)
[2023-08-30] MEDS: Levothyroxine Sodium 100 MCG TABLET PO (06:22)
[2023-08-30 09:29] VITALS: BP 115/54; PULSE 85; RESP 16; TEMP 36.2; O2SAT 96
[2023-08-30] MEDS: Sennosides/Docusate Sodium TABLET 1 TAB PO ×2 (09:36→20:49)
[2023-08-30] MEDS: Atorvastatin Calcium 40 MG TABLET PO (09:36)
[2023-08-30] MEDS: valACYclovir HCL 500 MG TABLET PO (09:36)
[2023-08-30] MEDS: Metoprolol Tartrate 12.5 MG HALFTAB PO ×2 (09:36→20:49)
[2023-08-30] MEDS: oxyCODONE HCl Immed Release 15 MG TABLET PO (09:36)
[2023-08-30] MEDS: Aspirin Enteric Coated 81 MG TABLET.DR PO (09:36)
[2023-08-30] MEDS: Dicyclomine HCl 10 MG CAPSULE 20 MG PO ×3 (09:36→20:49)
[2023-08-30] MEDS: risperiDONE 0.5 MG TABLET PO (09:36)
[2023-08-30 13:52] VITALS: BMI 18.9
--- NOTE | 2023-08-30 14:06 | MHC.CLN ---
NUTRITION DIET=REGULAR. ASKED PATIENT ABOUT TAKING ENSURE SUPPLEMENT OR FORTIFIED ICE CREAM. DECLINED BOTH STATING THAT DOESN'T LIKE ENSURE. INTAKE TODAY 75% AT BREAKFAST AND 100% AT LUNCH. REPORTS THAT WAS NOT EATING WELL AT HOME, BUT LIKES FOOD HERE AND IS EATING WELL. REPORTS THAT HAS LOST WEIGHT BUT COULD NOT PROVIDE WEIGHT HX. QUALIFIES MODERATELY MALNOURISHED. FOLLOW FOR INTAKE OF MEALS AND ENCOURAGE INTAKE ABLE. SEE CLINICAL NUTRITION ASSESSMENT 08/30/23.
[2023-08-30] MEDS: Acetaminophen 325 MG TABLET 650 MG PO (15:56)
[2023-08-30] MEDS: oxyCODONE HCl Immed Release 5 MG TABLET 10 MG PO (15:56)
[2023-08-30 19:45] VITALS: BP 100/65; PULSE 79; RESP 18; TEMP 36.6; O2SAT 97
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
[2023-08-30] MEDS: risperiDONE 1 MG TABLET PO (20:49)
[2023-08-30] MEDS: diazePAM 5 MG TABLET 2.5 MG PO (20:49)
[2023-08-31] MEDS: Omeprazole 40 MG CAPSULE.DR PO ×2 (05:59→15:34)
[2023-08-31] MEDS: Levothyroxine Sodium 100 MCG TABLET PO (05:59)
[2023-08-31 08:00] VITALS: BP 144/67; PULSE 82; RESP 18; TEMP 36; O2SAT 98
[2023-08-31] MEDS: Dicyclomine HCl 10 MG CAPSULE 20 MG PO ×3 (08:33→20:41)
[2023-08-31] MEDS: Atorvastatin Calcium 40 MG TABLET PO (08:33)
[2023-08-31] MEDS: Sennosides/Docusate Sodium TABLET 1 TAB PO (08:34)
[2023-08-31] MEDS: valACYclovir HCL 500 MG TABLET PO (08:34)
[2023-08-31] MEDS: Metoprolol Tartrate 12.5 MG HALFTAB PO ×2 (08:34→20:43)
[2023-08-31] MEDS: Aspirin Enteric Coated 81 MG TABLET.DR PO (08:34)
[2023-08-31] MEDS: risperiDONE 1 MG TABLET PO ×2 (08:34→20:44)
[2023-08-31] MEDS: oxyCODONE HCl Immed Release 5 MG TABLET 10 MG PO ×2 (08:41→20:44)
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
[2023-08-31] MEDS: Acetaminophen 325 MG TABLET 650 MG PO ×2 (15:01→20:42)
[2023-08-31] MEDS: Lidocaine 4 % Patch ADH..PATCH 1 PATCH TRANSDERMA (15:04)
[2023-08-31] MEDS: Simethicone 80 MG TAB.CHEW PO (15:34)
[2023-08-31] MEDS: Loperamide HCl 2 MG CAPSULE PO (17:17)
[2023-08-31 18:00] VITALS: BP 149/69; PULSE 77; RESP 18; TEMP 35.8; O2SAT 99
[2023-08-31] MEDS: diazePAM 5 MG TABLET 2.5 MG PO (20:42)
[2023-09-01] MEDS: Omeprazole 40 MG CAPSULE.DR PO ×2 (06:22→16:07)
[2023-09-01] MEDS: Levothyroxine Sodium 100 MCG TABLET PO (06:22)
[2023-09-01 08:00] VITALS: BP 127/65; PULSE 64; RESP 18; TEMP 36.5; O2SAT 97
[2023-09-01] MEDS: Atorvastatin Calcium 40 MG TABLET PO (08:02)
[2023-09-01] MEDS: valACYclovir HCL 500 MG TABLET PO (08:02)
[2023-09-01] MEDS: risperiDONE 1 MG TABLET PO ×2 (08:02→21:25)
[2023-09-01] MEDS: Dicyclomine HCl 10 MG CAPSULE 20 MG PO ×3 (08:02→21:24)
[2023-09-01] MEDS: Metoprolol Tartrate 12.5 MG HALFTAB PO ×2 (08:02→21:24)
[2023-09-01] MEDS: Aspirin Enteric Coated 81 MG TABLET.DR PO (08:02)
[2023-09-01] MEDS: Acetaminophen 325 MG TABLET 650 MG PO ×3 (08:03→21:23)
[2023-09-01] MEDS: Lidocaine 4 % Patch ADH..PATCH 1 PATCH TRANSDERMA (08:04)
[2023-09-01] MEDS: oxyCODONE HCl Immed Release 5 MG TABLET 10 MG PO (16:10)
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
[2023-09-01 18:00] VITALS: BP 131/63; PULSE 87; RESP 18; TEMP 36.2; O2SAT 94
[2023-09-01] MEDS: Sennosides/Docusate Sodium TABLET 1 TAB PO (21:25)
[2023-09-01] MEDS: traZODone HCL 50 MG TABLET PO (21:37)
[2023-09-02] MEDS: Levothyroxine Sodium 100 MCG TABLET PO (05:46)
[2023-09-02] MEDS: Omeprazole 40 MG CAPSULE.DR PO ×2 (05:46→15:09)
[2023-09-02 06:00] VITALS: BP 133/67; PULSE 86; RESP 18; TEMP 36.1; O2SAT 96
[2023-09-02] MEDS: valACYclovir HCL 500 MG TABLET PO (08:10)
[2023-09-02] MEDS: Dicyclomine HCl 10 MG CAPSULE 20 MG PO ×3 (08:10→20:10)
[2023-09-02] MEDS: Lidocaine 4 % Patch ADH..PATCH 1 PATCH TRANSDERMA (08:10)
[2023-09-02] MEDS: Metoprolol Tartrate 12.5 MG HALFTAB PO ×2 (08:10→20:10)
[2023-09-02] MEDS: Atorvastatin Calcium 40 MG TABLET PO (08:10)
[2023-09-02] MEDS: Aspirin Enteric Coated 81 MG TABLET.DR PO (08:10)
[2023-09-02] MEDS: Sennosides/Docusate Sodium TABLET 1 TAB PO (08:10)
[2023-09-02] MEDS: risperiDONE 1 MG TABLET PO ×2 (08:11→20:10)
[2023-09-02] MEDS: Acetaminophen 325 MG TABLET 650 MG PO ×3 (08:12→20:09)
[2023-09-02] MEDS: oxyCODONE HCl Immed Release 5 MG TABLET 10 MG PO ×3 (09:07→21:25)
[2023-09-02] MEDS: diazePAM 5 MG TABLET 2.5 MG PO ×2 (15:13→23:45)
--- NOTE | 2023-09-02 15:14 | MHC.CLN ---
NUTRITION DIET=REGULAR. INTAKE AT MEALS USUALLY 75-100%. NO NEW NUTRITION INTERVENTIONS. RD TO FOLLOW WEEKLY.
--- NOTE | 2023-09-02 16:24 | P.PNPSI_ITS ---
Subjective Subjective Date of Service: 09/02/23 Reason For Visit: delusions Subjective Notes: Conditional Voluntary Interim History: Pt mostly in bed. She reports pain all over. She reports she has to stay in pain otherwise pain exacerbates, she reports this is usual pain when she has exacerbations. This lead technical writer called her PCP re: [email or web address]. She has not followed up with rheumatology since, unclear if more extensive involvement of muscle and joints contributing to her pain. She is less perseverative on paranoid delusions about her neighbors. She states she is worried about her and hopes to return back home before [place]. No SI/HI. Review of Systems Review of Systems Pt denies SOB, chest pain. She reports intermittent periods of diarrhea and others constipation d/t IBS. She reports generalized pain, pins/needle type Yes all other systems are reviewed and are negative Mental Status Exam Mental Status Exam Narrative: Appearance: wearing hospital gown, thin, in NAD Behavior: cooperative, friendly Psychomotor: no agitation or retardation noted Speech: clear, regular rate/rhythm/volume, spontaneous TP: linear TC: Currently on chronic pain; has history of paranoid delusions Mood: not good Affect: anxious SI: denies HI: none Insight/judgment: impaired x 2. memory/cog: alert, oriented to hospital and situation, pending MOCA. Diagnostics Vital Signs (24Hr): Vital Signs - 24 hr 09/01/23 18:00 09/02/23 06:00 Temperature 97.1 F 96.9 F Pulse Rate 87 86 Respiratory Rate 18 18 Blood Pressure 131/63 133/67 Pulse Oximetry 94 96 Oxygen Delivery Method Room Air Room Air BMI result Body Mass Index 18.9 Labs 08/24/23 19:55 08/29/23 07:48 Imaging Radiology Impressions: ITS Impressions Head CT 08/24/23 20:20 IMPRESSION: No acute intracranial pathology. Chest X-Ray 08/25/23 02:00 IMPRESSION: Mild diffuse increased markings suspected to be chronic. No focal lung consolidation or pleural effusion Medications Medications Current Medications Acetaminophen (Acetaminophen 325 Mg Tablet) 650 mg PO TID [facility] Last Admin: 09/02/23 15:09 Dose: 650 mg Al Hydroxide/Mg Hydroxide (Magnesium Hydrox/Alum Hydrox 30 Ml Oral.Susp) 30 ml PO Q6H PRN PRN Reason: Heartburn/Nausea Aspirin (Aspirin Enteric Coated 81 Mg Tablet.Dr) 81 mg PO DAILY [facility] Last Admin: 09/02/23 08:10 Dose: 81 mg Atorvastatin Calcium (Atorvastatin Calcium 40 Mg Tablet) 40 mg PO DAILY [facility] Last Admin: 09/02/23 08:10 Dose: 40 mg Diazepam (Diazepam 5 Mg Tablet) 2.5 mg PO TID PRN PRN Reason: Muscle Spasm Last Admin: 09/02/23 15:13 Dose: 2.5 mg Dicyclomine HCl (Dicyclomine Hcl 10 Mg Capsule) 20 mg PO TID [facility] Last Admin: 09/02/23 15:09 Dose: 20 mg Levothyroxine Sodium (Levothyroxine Sodium 100 Mcg Tablet) 100 mcg PO DAILY@0600 [facility] Last Admin: 09/02/23 05:46 Dose: 100 mcg Lidocaine (Lidocaine 4 % Patch Adh..Patch) 1 patch TRANSDERMA DAILY [facility]; Protocol Last Admin: 09/02/23 08:10 Dose: 1 patch Loperamide HCl (Loperamide Hcl 2 Mg Capsule) 2 mg PO Q4H PRN PRN Reason: Diarrhea Last Admin: 08/31/23 17:17 Dose: 2 mg Magnesium Hydroxide (Milk Of Magnesia 30 Ml Oral.Susp) 30 ml PO DAILY PRN PRN Reason: Constipation Metoprolol Tartrate (Metoprolol Tartrate 12.5 Mg Halftab) 12.5 mg PO BID [facility]; Protocol Last Admin: 09/02/23 08:10 Dose: 12.5 mg Omeprazole (Omeprazole 40 Mg Capsule.) 40 mg PO BID@0630,1630 [facility] Last Admin: 09/02/23 15:09 Dose: 40 mg Oxycodone HCl (Oxycodone Hcl Immed Release 5 Mg Tablet) 10 mg PO Q6H PRN PRN Reason: chronic pain Last Admin: 09/02/23 15:13 Dose: 10 mg Risperidone (Risperidone 1 Mg Tablet) 1 mg PO BID [facility] Last Admin: 09/02/23 08:11 Dose: 1 mg Senna/Docusate Sodium (Sennosides/Docusate Sodium Tablet) 1 tab PO BID [facility] Last Admin: 09/02/23 08:10 Dose: 1 tab Simethicone (Simethicone 80 Mg Tab.Chew) 80 mg PO QIDWMHS PRN PRN Reason: bloating Last Admin: 08/31/23 15:34 Dose: 80 mg Trazodone HCl (Trazodone Hcl 50 Mg Tablet) 50 mg PO BEDTIME PRN PRN Reason: Insomnia Last Admin: 09/01/23 21:37 Dose: 50 mg Valacyclovir HCl (Valacyclovir Hcl 500 Mg Tablet) 500 mg PO DAILY [facility] Last Admin: 09/02/23 08:10 Dose: 500 mg Allergies Allergies Allergy/AdvReac Type Severity Reaction Status Date / Time cefaclor [From Ceclor] Allergy Anaphylaxis Verified 08/19/23 16:33 codeine Allergy Vomiting Verified 08/26/23 14:28 doxycycline Allergy Unknown Verified 08/26/23 14:28 fish derived [fish] Allergy Unknown Verified 08/26/23 14:26 hydroxychloroquine Allergy Unknown Verified 08/26/23 14:28 levofloxacin [From Levaquin] Allergy Unknown Verified 08/26/23 14:28 peanut Allergy Unknown Verified 08/26/23 14:28 Sulfa (Sulfonamide Allergy Unknown Verified 08/26/23 14:26 Antibiotics) Assessment & Plan Assessment & Plan (1) Delusional disorder, persecutory type: Status: Acute Code(s): F22 - Delusional disorders Plan Mrs. Horton is a 72 year-old woman who was brought to ED by due to increase paranoid towards neighbors thinking they are trying to kill her. Pt started on risperidone 0.5mg po BID on 08/25. Pt continues to report paranoid delusions towards neighbors and report driving under the influence of alcohol and not safe with him. PLAN 08/30 continue risperidone 1mg po BID. add schedule tylenol for pain. simmethicone for boating, lidocaine patch for chronic back pain. 08/31 adding Immodium for loose stool; otherwise continue current treatment plan; resolved with imodium 09/01 focused on pain; says oxy frequency reduced which is making it harder to get pain under control 09/02 continue in bed for due to pain. Pt has not followed up with rheumatology unclear if more extensive involvement of autoimmunune condition affecting joint and muscles pain. No SI/HI. Reason for continued inpatient stay Substantial Risk for: inability to function Time Spent With Patient Time: Total time managing care of this patient today ____ minutes.
[2023-09-02 18:00] VITALS: BP 119/57; PULSE 64; RESP 18; TEMP 36.1; O2SAT 99
[2023-09-02] MEDS: traZODone HCL 50 MG TABLET PO (20:10)
[2023-09-02 23:30] VITALS: BP 120/56; PULSE 66; RESP 16; O2SAT 94
[2023-09-03] MEDS: Levothyroxine Sodium 100 MCG TABLET PO (05:54)
[2023-09-03] MEDS: Omeprazole 40 MG CAPSULE.DR PO (05:54)
[2023-09-03 08:58] VITALS: BP 139/65; PULSE 94; RESP 16; TEMP 36.6; O2SAT 99
[2023-09-03] MEDS: Acetaminophen 325 MG TABLET 650 MG PO ×3 (09:02→21:06)
[2023-09-03] MEDS: Dicyclomine HCl 10 MG CAPSULE 20 MG PO ×3 (09:02→21:07)
[2023-09-03] MEDS: Sennosides/Docusate Sodium TABLET 1 TAB PO ×2 (09:02→21:06)
[2023-09-03] MEDS: valACYclovir HCL 500 MG TABLET PO (09:02)
[2023-09-03] MEDS: Metoprolol Tartrate 12.5 MG HALFTAB PO ×2 (09:02→21:07)
[2023-09-03] MEDS: Aspirin Enteric Coated 81 MG TABLET.DR PO (09:03)
[2023-09-03] MEDS: Atorvastatin Calcium 40 MG TABLET PO (09:03)
[2023-09-03] MEDS: Lidocaine 4 % Patch ADH..PATCH 1 PATCH TRANSDERMA (09:03)
[2023-09-03] MEDS: risperiDONE 1 MG TABLET PO ×2 (09:03→21:06)
[2023-09-03 09:16] LABS: COVID-19 Test Positive (Negative); IDNOW Serial# BCCEAD1C
--- NOTE | 2023-09-03 10:21 | HO.PSYCHPN ---
Subjective Subjective Date of Service: 09/03/23 Reason For Visit: delusions Subjective Notes: Conditional Voluntary Interim History: pt reports feeling tired. She denies SI/HI. She tested positive COVID. She is not coughing. No SOB. No respiratory distress. O2sat 98 on RA. afebrile. She is less preoccupied with paranoid delusions towards neighrbors. She mostly worries about her being home and having frequent falls. Medication Compliance: Yes Review of Systems Review of Systems Pt denies SOB, chest pain. She reports intermittent periods of diarrhea and others constipation d/t IBS. She reports generalized pain, pins/needle type Yes all other systems are reviewed and are negative Mental Status Exam Mental Status Exam Narrative: Appearance: wearing hospital gown, thin, in NAD Behavior: cooperative, friendly Psychomotor: no agitation or retardation noted Speech: clear, regular rate/rhythm/volume, spontaneous TP: linear TC: Currently on chronic pain; has history of paranoid delusions Mood: not good Affect: anxious SI: denies HI: none Insight/judgment: impaired x 2. memory/cog: alert, oriented to hospital and situation, pending MOCA. Diagnostics Vital Signs (24Hr): Vital Signs - 24 hr 09/02/23 18:00 09/02/23 23:30 09/03/23 08:58 Temperature 97 F 97.8 F Pulse Rate 64 66 94 Respiratory Rate 18 16 16 Blood Pressure 119/57 L 120/56 L 139/65 Pulse Oximetry 99 94 99 Oxygen Delivery Method Room Air Room Air Room Air BMI result Body Mass Index 18.9 Labs 08/24/23 19:55 08/29/23 07:48 Labs: Laboratory Results - last 48 hr 09/03/23 08:29 COVID-19 ([facility]) Positive A COVID-19 Clin Com See Note Imaging Radiology Impressions: ITS Impressions Head CT 08/24/23 20:20 IMPRESSION: No acute intracranial pathology. Chest X-Ray 08/25/23 02:00 IMPRESSION: Mild diffuse increased markings suspected to be chronic. No focal lung consolidation or pleural effusion Medications Medications Current Medications Acetaminophen (Acetaminophen 325 Mg Tablet) 650 mg PO TID [facility] Last Admin: 09/03/23 09:02 Dose: 650 mg Al Hydroxide/Mg Hydroxide (Magnesium Hydrox/Alum Hydrox 30 Ml Oral.Susp) 30 ml PO Q6H PRN PRN Reason: Heartburn/Nausea Aspirin (Aspirin Enteric Coated 81 Mg Tablet.) 81 mg PO DAILY [facility] Last Admin: 09/03/23 09:03 Dose: 81 mg Atorvastatin Calcium (Atorvastatin Calcium 40 Mg Tablet) 40 mg PO DAILY [facility] Last Admin: 09/03/23 09:03 Dose: 40 mg Diazepam (Diazepam 5 Mg Tablet) 2.5 mg PO TID PRN PRN Reason: Muscle Spasm Last Admin: 09/02/23 23:45 Dose: 2.5 mg Dicyclomine HCl (Dicyclomine Hcl 10 Mg Capsule) 20 mg PO TID [facility] Last Admin: 09/03/23 09:02 Dose: 20 mg Levothyroxine Sodium (Levothyroxine Sodium 100 Mcg Tablet) 100 mcg PO DAILY@0600 [facility] Last Admin: 09/03/23 05:54 Dose: 100 mcg Lidocaine (Lidocaine 4 % Patch Adh..Patch) 1 patch TRANSDERMA DAILY [facility]; Protocol Last Admin: 09/03/23 09:03 Dose: 1 patch Loperamide HCl (Loperamide Hcl 2 Mg Capsule) 2 mg PO Q4H PRN PRN Reason: Diarrhea Last Admin: 08/31/23 17:17 Dose: 2 mg Magnesium Hydroxide (Milk Of Magnesia 30 Ml Oral.Susp) 30 ml PO DAILY PRN PRN Reason: Constipation Metoprolol Tartrate (Metoprolol Tartrate 12.5 Mg Halftab) 12.5 mg PO BID [facility]; Protocol Last Admin: 09/03/23 09:02 Dose: 12.5 mg Non-Formulary Medication (Albuterol Sulfate) 2 mg PO QID PRN PRN Reason: Shortness Of Breath Or Wheezing Omeprazole (Omeprazole 40 Mg Capsule.) 40 mg PO BID@0630,1630 [facility] Last Admin: 09/03/23 05:54 Dose: 40 mg Oxycodone HCl (Oxycodone Hcl Immed Release 5 Mg Tablet) 10 mg PO Q6H PRN PRN Reason: chronic pain Last Admin: 09/02/23 21:25 Dose: 10 mg Risperidone (Risperidone 1 Mg Tablet) 1 mg PO BID [facility] Last Admin: 09/03/23 09:03 Dose: 1 mg Senna/Docusate Sodium (Sennosides/Docusate Sodium Tablet) 1 tab PO BID [facility] Last Admin: 09/03/23 09:02 Dose: 1 tab Simethicone (Simethicone 80 Mg Tab.Chew) 80 mg PO QIDWMHS PRN PRN Reason: bloating Last Admin: 08/31/23 15:34 Dose: 80 mg Trazodone HCl (Trazodone Hcl 50 Mg Tablet) 50 mg PO BEDTIME PRN PRN Reason: Insomnia Last Admin: 09/02/23 20:10 Dose: 50 mg Valacyclovir HCl (Valacyclovir Hcl 500 Mg Tablet) 500 mg PO DAILY [facility] Last Admin: 09/03/23 09:02 Dose: 500 mg Allergies Allergies Allergy/AdvReac Type Severity Reaction Status Date / Time cefaclor [From Ceclor] Allergy Anaphylaxis Verified 08/19/23 16:33 codeine Allergy Vomiting Verified 08/26/23 14:28 doxycycline Allergy Unknown Verified 08/26/23 14:28 fish derived [fish] Allergy Unknown Verified 08/26/23 14:26 hydroxychloroquine Allergy Unknown Verified 08/26/23 14:28 levofloxacin [From Levaquin] Allergy Unknown Verified 08/26/23 14:28 peanut Allergy Unknown Verified 08/26/23 14:28 Sulfa (Sulfonamide Allergy Unknown Verified 08/26/23 14:26 Antibiotics) Assessment & Plan Assessment & Plan (1) Delusional disorder, persecutory type: Status: Acute Code(s): F22 - Delusional disorders Plan Mrs. Horton is a 72 year-old woman who was brought to ED by due to increase paranoid towards neighbors thinking they are trying to kill her. Pt started on risperidone 0.5mg po BID on 08/25. Pt continues to report paranoid delusions towards neighbors and report driving under the influence of alcohol and not safe with him. PLAN 08/30 continue risperidone 1mg po BID. add schedule tylenol for pain. simmethicone for boating, lidocaine patch for chronic back pain. 08/31 adding Immodium for loose stool; otherwise continue current treatment plan; resolved with imodium 09/01 focused on pain; says oxy frequency reduced which is making it harder to get pain under control 09/02 continue in bed for due to pain. Pt has not followed up with rheumatology unclear if more extensive involvement of autoimmunune condition affecting joint and muscles pain. No SI/HI. 09/03 pt tested positive for covid. no respiratory distress, afebrile, no SOB. Reason for continued inpatient stay Substantial Risk for: inability to function Time Spent With Patient Time: Total time managing care of this patient today ____ minutes.
[2023-09-03] MEDS: Magnesium Hydrox/Alum Hydrox 30 ML ORAL.SUSP PO (11:52)
[2023-09-03] MEDS: guaiFENesin DM 600/30 1 TAB TAB.ER.12H PO ×2 (11:52→21:05)
[2023-09-03] MEDS: oxyCODONE HCl Immed Release 5 MG TABLET 10 MG PO ×2 (11:59→18:28)
[2023-09-03 18:00] VITALS: BP 130/61; PULSE 76; RESP 18; TEMP 36.6; O2SAT 97
[2023-09-03] MEDS: diazePAM 5 MG TABLET 2.5 MG PO (21:05)
[2023-09-04] MEDS: oxyCODONE HCl Immed Release 5 MG TABLET 10 MG PO ×2 (04:02→14:14)
[2023-09-04] MEDS: diphenhydrAMINE HCL 25 MG CAPSULE PO ×2 (04:08→16:34)
[2023-09-04] MEDS: guaiFENesin DM 600/30 1 TAB TAB.ER.12H PO ×3 (04:11→20:38)
[2023-09-04] MEDS: Levothyroxine Sodium 100 MCG TABLET PO (05:13)
[2023-09-04] MEDS: Omeprazole 40 MG CAPSULE.DR PO ×2 (05:13→16:33)
[2023-09-04 08:05] VITALS: BP 115/54; PULSE 98; RESP 18; TEMP 37.5; O2SAT 96
--- NOTE | 2023-09-04 08:42 | P.PNPSI_ITS ---
Subjective Subjective Date of Service: 09/04/23 Reason For Visit: delusions Subjective Notes: Conditional Voluntary Interim History: Pt slept most of the night. She reports cough, congestion, afebrile. She does have some SOB. O2s 90%. Hospitalist consulted, started pt on paxlovix. VS change to q6h, continue monitor O2sat. Pt reports malaise. She is in isolation. No overt paranoid delusions. Review of Systems Review of Systems Pt denies SOB, chest pain. She reports intermittent periods of diarrhea and others constipation d/t IBS. She reports generalized pain, pins/needle type Yes all other systems are reviewed and are negative Mental Status Exam Mental Status Exam Narrative: Appearance: wearing hospital gown, thin, in NAD Behavior: cooperative, friendly Psychomotor: no agitation or retardation noted Speech: clear, regular rate/rhythm/volume, spontaneous TP: linear TC: Currently on chronic pain; has history of paranoid delusions Mood: not good Affect: anxious SI: denies HI: none Insight/judgment: impaired x 2. memory/cog: alert, oriented to hospital and situation, pending MOCA. Diagnostics Vital Signs (24Hr): Vital Signs - 24 hr 09/03/23 08:58 09/03/23 18:00 Temperature 97.8 F 97.9 F Pulse Rate 94 76 Respiratory Rate 16 18 Blood Pressure 139/65 130/61 Pulse Oximetry 99 97 Oxygen Delivery Method Room Air Room Air BMI result Body Mass Index 18.9 Labs 08/24/23 19:55 08/29/23 07:48 Labs: Laboratory Results - last 48 hr 09/03/23 08:29 COVID-19 ([facility]) Positive A COVID-19 Clin Com See Note Imaging Radiology Impressions: ITS Impressions Head CT 08/24/23 20:20 IMPRESSION: No acute intracranial pathology. Chest X-Ray 08/25/23 02:00 IMPRESSION: Mild diffuse increased markings suspected to be chronic. No focal lung consolidation or pleural effusion Medications Medications Current Medications Acetaminophen (Acetaminophen 325 Mg Tablet) 650 mg PO TID [facility] Last Admin: 09/03/23 21:06 Dose: 650 mg Al Hydroxide/Mg Hydroxide (Magnesium Hydrox/Alum Hydrox 30 Ml Oral.Susp) 30 ml PO Q6H PRN PRN Reason: Heartburn/Nausea Last Admin: 09/03/23 11:52 Dose: 30 ml Aspirin (Aspirin Enteric Coated 81 Mg Tablet.) 81 mg PO DAILY [facility] Last Admin: 09/03/23 09:03 Dose: 81 mg Atorvastatin Calcium (Atorvastatin Calcium 40 Mg Tablet) 40 mg PO DAILY [facility] Last Admin: 09/03/23 09:03 Dose: 40 mg Diazepam (Diazepam 5 Mg Tablet) 2.5 mg PO TID PRN PRN Reason: Muscle Spasm Last Admin: 09/03/23 21:05 Dose: 2.5 mg Dicyclomine HCl (Dicyclomine Hcl 10 Mg Capsule) 20 mg PO TID [facility] Last Admin: 09/03/23 21:07 Dose: 20 mg Diphenhydramine HCl (Diphenhydramine Hcl 25 Mg Capsule) 25 mg PO Q6H PRN PRN Reason: Cold Symptoms Last Admin: 09/04/23 04:08 Dose: 25 mg Guaifenesin/Dextromethorphan (Guaifenesin Dm 600/30 1 Tab Tab.Er.12h) 1 tab PO BID PRN PRN Reason: Congestion Last Admin: 09/04/23 04:11 Dose: 1 tab Levothyroxine Sodium (Levothyroxine Sodium 100 Mcg Tablet) 100 mcg PO DAILY@0600 [facility] Last Admin: 09/04/23 05:13 Dose: 100 mcg Lidocaine (Lidocaine 4 % Patch Adh..Patch) 1 patch TRANSDERMA DAILY [facility]; Protocol Last Admin: 09/03/23 09:03 Dose: 1 patch Loperamide HCl (Loperamide Hcl 2 Mg Capsule) 2 mg PO Q4H PRN PRN Reason: Diarrhea Last Admin: 08/31/23 17:17 Dose: 2 mg Magnesium Hydroxide (Milk Of Magnesia 30 Ml Oral.Susp) 30 ml PO DAILY PRN PRN Reason: Constipation Metoprolol Tartrate (Metoprolol Tartrate 12.5 Mg Halftab) 12.5 mg PO BID [facility]; Protocol Last Admin: 09/03/23 21:07 Dose: 12.5 mg Pt Own (Albuterol (Sulfate 2 Mg Tablet)) 2 mg PO QID PRN PRN Reason: Shortness Of Breath Or Wheezing Last Admin: 09/03/23 22:08 Dose: 2 mg Omeprazole (Omeprazole 40 Mg Capsule.) 40 mg PO BID@0630,1630 [facility] Last Admin: 09/04/23 05:13 Dose: 40 mg Oxycodone HCl (Oxycodone Hcl Immed Release 5 Mg Tablet) 10 mg PO Q6H PRN PRN Reason: chronic pain Last Admin: 09/04/23 04:02 Dose: 10 mg Risperidone (Risperidone 1 Mg Tablet) 1 mg PO BID [facility] Last Admin: 09/03/23 21:06 Dose: 1 mg Senna/Docusate Sodium (Sennosides/Docusate Sodium Tablet) 1 tab PO BID [facility] Last Admin: 09/03/23 21:06 Dose: 1 tab Simethicone (Simethicone 80 Mg Tab.Chew) 80 mg PO QIDWMHS PRN PRN Reason: bloating Last Admin: 08/31/23 15:34 Dose: 80 mg Trazodone HCl (Trazodone Hcl 50 Mg Tablet) 50 mg PO BEDTIME PRN PRN Reason: Insomnia Last Admin: 09/02/23 20:10 Dose: 50 mg Valacyclovir HCl (Valacyclovir Hcl 500 Mg Tablet) 500 mg PO DAILY [facility] Last Admin: 09/03/23 09:02 Dose: 500 mg Allergies Allergies Allergy/AdvReac Type Severity Reaction Status Date / Time cefaclor [From Ceclor] Allergy Anaphylaxis Verified 08/19/23 16:33 codeine Allergy Vomiting Verified 08/26/23 14:28 doxycycline Allergy Unknown Verified 08/26/23 14:28 fish derived [fish] Allergy Unknown Verified 08/26/23 14:26 hydroxychloroquine Allergy Unknown Verified 08/26/23 14:28 levofloxacin [From Levaquin] Allergy Unknown Verified 08/26/23 14:28 peanut Allergy Unknown Verified 08/26/23 14:28 Sulfa (Sulfonamide Allergy Unknown Verified 08/26/23 14:26 Antibiotics) Assessment & Plan Assessment & Plan (1) Delusional disorder, persecutory type: Status: Acute Code(s): F22 - Delusional disorders Plan Mrs. Horton is a 72 year-old woman who was brought to ED by due to increase paranoid towards neighbors thinking they are trying to kill her. Pt started on risperidone 0.5mg po BID on 08/25. Pt continues to report paranoid delusions towards neighbors and report driving under the influence of alcohol and not safe with him. PLAN 08/30 continue risperidone 1mg po BID. add schedule tylenol for pain. simmethicone for boating, lidocaine patch for chronic back pain. 08/31 adding Immodium for loose stool; otherwise continue current treatment plan; resolved with imodium 09/01 focused on pain; says oxy frequency reduced which is making it harder to get pain under control 09/02 continue in bed for due to pain. Pt has not followed up with rheumatology unclear if more extensive involvement of autoimmunune condition affecting joint and muscles pain. No SI/HI. 09/03 pt tested positive for covid. no respiratory distress, afebrile, no SOB. 09/04 continue tx. VS, especially O2sats q6h,monitor respiratory status and s/s of decline. Reason for continued inpatient stay Substantial Risk for: inability to function Time Spent With Patient Time: Total time managing care of this patient today ____ minutes.
[2023-09-04] MEDS: risperiDONE 1 MG TABLET PO ×2 (08:45→20:38)
[2023-09-04] MEDS: Dicyclomine HCl 10 MG CAPSULE 20 MG PO ×3 (08:45→20:38)
[2023-09-04] MEDS: Metoprolol Tartrate 12.5 MG HALFTAB PO ×2 (08:45→20:37)
[2023-09-04] MEDS: valACYclovir HCL 500 MG TABLET PO (08:45)
[2023-09-04] MEDS: Sennosides/Docusate Sodium TABLET 1 TAB PO ×2 (08:45→20:38)
[2023-09-04] MEDS: Atorvastatin Calcium 40 MG TABLET PO (08:45)
[2023-09-04] MEDS: Aspirin Enteric Coated 81 MG TABLET.DR PO (08:45)
[2023-09-04] MEDS: Acetaminophen 325 MG TABLET 650 MG PO ×3 (08:46→20:38)
[2023-09-04] MEDS: Lidocaine 4 % Patch ADH..PATCH 1 PATCH TRANSDERMA (08:47)
[2023-09-04 13:50] VITALS: BP 140/63; PULSE 76; RESP 16; TEMP 36.8; O2SAT 96
--- NOTE | 2023-09-04 18:13 | PM.EVENT ---
Event Note Date of Service: 09/04/23 Event Note: 72-year-old female with pertinent past medical history including interstitial lung disease and mild intermittent asthma admitted to geriatric psychiatry consult [facility] service for evaluation of COVID-19. The patient tested positive for COVID-19 2 days ago and is symptomatic with shortness of breath, productive cough, postnasal drip, throat irritation, pleuritic chest pain. She has not required any additional use of her albuterol caps. She has remained afebrile but per psychiatry provider, has been desaturating to 90%. No true hypoxia and has not required any supplemental oxygen. The patient is resting comfortable in bed. On exam, lungs are clear to auscultation bilaterally, no observed respiratory distress or increased work of breathing. Heart is regular in rate and rhythm. At this point, there is no indication for steroids. Will start renally adjusted paxlovid x 5 days. REcommend duonebs q4h while awake prn. Encourage PO hydration. Flonase daily, saline spray prn, guaifenesin prn. Check cxr to r/o pneumonia, but low suspicion at this time Thank you for allowing me to participate in this consult. Signing off at this time. Please do not hesitate to call for further questions or for any acute medical issues Time Spent With Patient Time: Total time managing care of this patient today ____ minutes.
[2023-09-04 19:35] VITALS: BP 130/57; PULSE 81; RESP 18; TEMP 36.4; O2SAT 92
[2023-09-04] MEDS: Fluticasone Propionate Nasal 16 GM SPRAY 1 SPRAY NOSTRIL-B (20:38)
[2023-09-05 01:00] VITALS: BP 124/66; PULSE 78; RESP 16; TEMP 36.4; O2SAT 92
[2023-09-05] MEDS: Levothyroxine Sodium 100 MCG TABLET PO (05:37)
[2023-09-05] MEDS: Omeprazole 40 MG CAPSULE.DR PO ×2 (05:38→17:13)
[2023-09-05] MEDS: oxyCODONE HCl Immed Release 5 MG TABLET 10 MG PO ×3 (06:23→18:36)
[2023-09-05 07:00] VITALS: BP 112/53; PULSE 78; RESP 16; TEMP 36.4; O2SAT 93; BMI 16.6
[2023-09-05] MEDS: Sennosides/Docusate Sodium TABLET 1 TAB PO ×2 (09:05→22:13)
[2023-09-05] MEDS: Acetaminophen 325 MG TABLET 650 MG PO ×3 (09:05→22:13)
[2023-09-05] MEDS: risperiDONE 1 MG TABLET PO ×2 (09:06→22:13)
[2023-09-05] MEDS: guaiFENesin DM 600/30 1 TAB TAB.ER.12H PO ×2 (09:06→22:14)
[2023-09-05] MEDS: Dicyclomine HCl 10 MG CAPSULE 20 MG PO ×3 (09:06→22:13)
[2023-09-05] MEDS: valACYclovir HCL 500 MG TABLET PO (09:06)
[2023-09-05] MEDS: Metoprolol Tartrate 12.5 MG HALFTAB PO ×2 (09:06→22:13)
[2023-09-05] MEDS: Aspirin Enteric Coated 81 MG TABLET.DR PO (09:07)
[2023-09-05] MEDS: Fluticasone Propionate Nasal 16 GM SPRAY 1 SPRAY NOSTRIL-B (11:51)
[2023-09-05] MEDS: Lidocaine 4 % Patch ADH..PATCH 1 PATCH TRANSDERMA (11:51)
[2023-09-05 12:03] VITALS: BP 136/61; PULSE 76; RESP 18; TEMP 36.4; O2SAT 94
[2023-09-05] MEDS: diazePAM 5 MG TABLET 2.5 MG PO (12:18)
--- NOTE | 2023-09-05 14:12 | PC.NURSE ---
At approximately 1200 TW was in [place] outside room 180 and heard Pt calling for help. Patient was found laying flat on floor with knees bent and walker in front of her. Patient c/o L ankle pain stating , my ankle gave out on me. Vitals were taken and patient was helped back to bed. VSS. O2 94% BP 136/61 P 76. Provider was notified. CT of head and Xrays of L hip, knee and ankle ordered. Patient transferred via stretcher for scans. Tolerated well. Resting comfortably in bed at this time. Medicated with PRN oxycodone and valium with good effect. Bed alarm on and patient instructed to use call kim. Patient had been instructed to use call kim prior to getting out of bed when she fell. Incident report to be filed.
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
[2023-09-05 20:40] VITALS: BP 134/62; PULSE 65; RESP 18; TEMP 37; O2SAT 93
--- NOTE | 2023-09-05 20:52 | PM.EVENT ---
Event Note Date of Service: 09/05/23 Event Note: Medical consult for patient after unwitnessed fall on the unit. Patient apparently was getting out of the bathroom when her ankle twisted and gave out on her. Patient was using her walker and fell on her backside. X-ray of left ankle showed subtle nondisplaced fractures of the left medial and lateral malleoli with marked surrounding soft tissue swelling. X-ray of left knee showed minimal osteoarthritis with no acute fracture. X-ray of hip and pelvis showed degenerative disc disease in the lower lumbar spine, but no acute fracture or malalignment of the pelvis, left hip, or left knee. CT of head was negative for acute intracranial abnormality. Orthopedics was consulted and said patient should be placed in a boot and be nonweightbearing. Will get an ortho consult for tomorrow where patient will be fitted for a boot. In the meantime patient should continue home opioid analgesics, and use elevation and cold compresses on her ankle. Time Spent With Patient Time: Total time managing care of this patient today ____ minutes.
[2023-09-06 02:00] VITALS: BP 148/78; PULSE 68; RESP 16; TEMP 36.2; O2SAT 91
[2023-09-06] MEDS: oxyCODONE HCl Immed Release 5 MG TABLET 10 MG PO ×4 (03:57→21:01)
[2023-09-06] MEDS: Levothyroxine Sodium 100 MCG TABLET PO (05:38)
[2023-09-06] MEDS: Omeprazole 40 MG CAPSULE.DR PO ×2 (05:38→17:06)
[2023-09-06 08:00] VITALS: BP 139/67; PULSE 89; RESP 18; TEMP 36.7; O2SAT 93
[2023-09-06] MEDS: Dicyclomine HCl 10 MG CAPSULE 20 MG PO ×3 (08:35→20:31)
[2023-09-06] MEDS: Fluticasone Propionate Nasal 16 GM SPRAY 1 SPRAY NOSTRIL-B (08:39)
[2023-09-06] MEDS: Lidocaine 4 % Patch ADH..PATCH 1 PATCH TRANSDERMA (08:40)
[2023-09-06] MEDS: diazePAM 2 MG TABLET 2.5 MG PO ×2 (08:40→16:06)
[2023-09-06] MEDS: Acetaminophen 325 MG TABLET 650 MG PO ×3 (08:41→20:30)
[2023-09-06] MEDS: guaiFENesin DM 600/30 1 TAB TAB.ER.12H PO ×2 (08:43→20:31)
[2023-09-06] MEDS: Metoprolol Tartrate 12.5 MG HALFTAB PO ×2 (08:43→20:37)
[2023-09-06] MEDS: risperiDONE 1 MG TABLET PO ×2 (08:43→20:31)
[2023-09-06] MEDS: Aspirin Enteric Coated 81 MG TABLET.DR PO (08:44)
[2023-09-06] MEDS: valACYclovir HCL 500 MG TABLET PO (08:52)
--- NOTE | 2023-09-06 12:47 | MHC.CLN ---
F/U REVIEW OF WEIGHT HX SHOWS -12% WEIGHT LOSS X ONE WEEK. INTAKE UNTIL 09/03 APPEARS TO BE USUALLY GOOD. POOR PO INTAKE X 2 DAYS. NEW DX COVID. DRAMATIC WEIGHT LOSS X 7 DAYS YOCASTALEY. ADDING ENSURE BID TO INCREASE NUTRITIONAL INTAKE. PROVIDE 700 KCALS, [address] TO FOLLOW WEEKLY.
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
[2023-09-06 16:42] VITALS: BP 129/64; PULSE 75; RESP 18; TEMP 36.7; O2SAT 93
[2023-09-06 19:00] VITALS: BP 132/58; PULSE 72; RESP 16; TEMP 36.4; O2SAT 93
[2023-09-06] MEDS: Sennosides/Docusate Sodium TABLET 1 TAB PO (20:30)
[2023-09-06] MEDS: traZODone HCL 50 MG TABLET PO (20:31)
[2023-09-06 22:00] VITALS: RESP 16
--- NOTE | 2023-09-06 23:19 | P.PNPSI_ITS ---
Subjective Subjective Date of Service: 09/06/23 Reason For Visit: delusions Interim History: Pt slept most of the night. She reports cough, congestion, afebrile. She does have some SOB. O2s 90%. started pt on paxlovix. Respiratory status stable. Pt had mechanical fall- xr ordered right ankle non displaced fracture- boot ordered by ortho Less paranoid ideas. otherwise stable. Review of Systems Review of Systems per hpi Yes all other systems are reviewed and are negative Mental Status Exam Mental Status Exam Narrative: Appearance: wearing hospital gown, thin, in NAD Behavior: cooperative, friendly Psychomotor: no agitation or retardation noted Speech: clear, regular rate/rhythm/volume, spontaneous TP: linear TC: Currently on chronic pain; has history of paranoid delusions Mood: not good Affect: anxious SI: denies HI: none Insight/judgment: impaired x 2. memory/cog: alert, oriented to hospital and situation, pending MOCA. Diagnostics Vital Signs (24Hr): Vital Signs - 24 hr 09/06/23 02:00 09/06/23 08:00 09/06/23 16:42 Temperature 97.2 F 98.1 F 98.0 F Pulse Rate 68 89 75 Respiratory Rate 16 18 18 Blood Pressure 148/78 H 139/67 129/64 Pulse Oximetry 91 L 93 93 Oxygen Delivery Method Room Air Room Air Room Air 09/06/23 22:00 Temperature Pulse Rate Respiratory Rate 16 Blood Pressure Pulse Oximetry Oxygen Delivery Method BMI result Body Mass Index 16.6 Labs 08/24/23 19:55 08/29/23 07:48 Imaging Radiology Impressions: ITS Impressions Head CT 08/24/23 20:20 IMPRESSION: No acute intracranial pathology. Chest X-Ray 08/25/23 02:00 IMPRESSION: Mild diffuse increased markings suspected to be chronic. No focal lung consolidation or pleural effusion Chest X-Ray 09/04/23 19:06 IMPRESSION: Hyperinflated lungs with no acute consolidation. Mild focal haziness in both upper lobes question postsurgical changes. Correlate clinically. Small 3 mm nodule right midlung. Ankle X-Ray 09/05/23 13:55 IMPRESSION: 1. Subtle nondisplaced fractures of the left medial and lateral malleoli with marked surrounding soft tissue swelling. 2. No acute fracture or malalignment at the pelvis, left hip, and left knee. 3. Minimal osteoarthritis in the left knee. 4. Degenerative disc disease in the lower lumbar spine. 5. Osteopenia. Hip/Pelvis X-Ray 09/05/23 13:55 IMPRESSION: 1. Subtle nondisplaced fractures of the left medial and lateral malleoli with marked surrounding soft tissue swelling. 2. No acute fracture or malalignment at the pelvis, left hip, and left knee. 3. Minimal osteoarthritis in the left knee. 4. Degenerative disc disease in the lower lumbar spine. 5. Osteopenia. Knee X-Ray 09/05/23 13:55 IMPRESSION: 1. Subtle nondisplaced fractures of the left medial and lateral malleoli with marked surrounding soft tissue swelling. 2. No acute fracture or malalignment at the pelvis, left hip, and left knee. 3. Minimal osteoarthritis in the left knee. 4. Degenerative disc disease in the lower lumbar spine. 5. Osteopenia. Head CT 09/05/23 14:03 IMPRESSION: No acute intracranial process seen. . Medications Medications Current Medications Acetaminophen (Acetaminophen 325 Mg Tablet) 650 mg PO TID [facility] Last Admin: 09/06/23 20:30 Dose: 650 mg Al Hydroxide/Mg Hydroxide (Magnesium Hydrox/Alum Hydrox 30 Ml Oral.Susp) 30 ml PO Q6H PRN PRN Reason: Heartburn/Nausea Last Admin: 09/03/23 11:52 Dose: 30 ml Albuterol/Ipratropium (Albuterol/Iprat 2.5/0.5mg 3 Ml Ampul.Neb) 3 ml INHALE RQ4H WHILE AWAKE PRN PRN Reason: Shortness of Breath/Wheezing Aspirin (Aspirin Enteric Coated 81 Mg Tablet.) 81 mg PO DAILY [facility] Last Admin: 09/06/23 08:44 Dose: 81 mg Atorvastatin Calcium (Atorvastatin Calcium 40 Mg Tablet) 40 mg PO DAILY [facility] Last Admin: 09/04/23 08:45 Dose: 40 mg Diazepam (Diazepam 2 Mg Tablet) 2.5 mg PO TID PRN PRN Reason: Anxiety Last Admin: 09/06/23 16:06 Dose: 2.5 mg Dicyclomine HCl (Dicyclomine Hcl 10 Mg Capsule) 20 mg PO TID [facility] Last Admin: 09/06/23 20:31 Dose: 20 mg Diphenhydramine HCl (Diphenhydramine Hcl 25 Mg Capsule) 25 mg PO Q6H PRN PRN Reason: Cold Symptoms Last Admin: 09/04/23 04:08 Dose: 25 mg Fluticasone Propionate (Fluticasone Propionate Nasal 16 Gm [place]) 1 spray NOSTRIL-B DAILY [facility] Last Admin: 09/06/23 08:39 Dose: 1 spray Guaifenesin (Guaifenesin 200 Mg/10 Ml 10 Ml Liquid) 10 ml PO Q4H PRN PRN Reason: Cough Guaifenesin/Dextromethorphan (Guaifenesin Dm 600/30 1 Tab Tab.Er.12h) 1 tab PO BID [facility] Last Admin: 09/06/23 20:31 Dose: 1 tab Levothyroxine Sodium (Levothyroxine Sodium 100 Mcg Tablet) 100 mcg PO DAILY@0600 [facility] Last Admin: 09/06/23 05:38 Dose: 100 mcg Lidocaine (Lidocaine 4 % Patch Adh..Patch) 1 patch TRANSDERMA DAILY [facility]; Protocol Last Admin: 09/06/23 08:40 Dose: 1 patch Loperamide HCl (Loperamide Hcl 2 Mg Capsule) 2 mg PO Q4H PRN PRN Reason: Diarrhea Last Admin: 08/31/23 17:17 Dose: 2 mg Magnesium Hydroxide (Milk Of Magnesia 30 Ml Oral.Susp) 30 ml PO DAILY PRN PRN Reason: Constipation Metoprolol Tartrate (Metoprolol Tartrate 12.5 Mg Halftab) 12.5 mg PO BID [facility]; Protocol Last Admin: 09/06/23 20:37 Dose: 12.5 mg Nirmatrelvir/Ritonavir (Nirmatrelvir/Ritonavir 300/100 3 Tab Dose) 2 tab PO Q12H [facility] Stop: 09/09/23 08:01 Last Admin: 09/06/23 21:00 Dose: 2 tab Pt Own (Albuterol (Sulfate 2 Mg Tablet)) 2 mg PO QID PRN PRN Reason: Shortness Of Breath Or Wheezing Last Admin: 09/05/23 18:42 Dose: 2 mg Omeprazole (Omeprazole 40 Mg Capsule.Dr) 40 mg PO BID@0630,1630 [facility] Last Admin: 09/06/23 17:06 Dose: 40 mg Oxycodone HCl (Oxycodone Hcl Immed Release 5 Mg Tablet) 10 mg PO Q6H PRN PRN Reason: Pain, Severe (Pain Scale 7-10) Last Admin: 09/06/23 21:01 Dose: 10 mg Risperidone (Risperidone 1 Mg Tablet) 1 mg PO BID [facility] Last Admin: 09/06/23 20:31 Dose: 1 mg Senna/Docusate Sodium (Sennosides/Docusate Sodium Tablet) 1 tab PO BID [facility] Last Admin: 09/06/23 20:30 Dose: 1 tab Simethicone (Simethicone 80 Mg Tab.Chew) 80 mg PO QIDWMHS PRN PRN Reason: bloating Last Admin: 08/31/23 15:34 Dose: 80 mg Sodium Chloride (Sodium Chloride 0.65 % Nasal 44 Ml Sprbtl) 1 spray NOSTRIL-B Q1H PRN PRN Reason: congestion/pnd Trazodone HCl (Trazodone Hcl 50 Mg Tablet) 50 mg PO BEDTIME PRN PRN Reason: Insomnia Last Admin: 09/06/23 20:31 Dose: 50 mg Valacyclovir HCl (Valacyclovir Hcl 500 Mg Tablet) 500 mg PO DAILY [facility] Last Admin: 09/06/23 08:52 Dose: 500 mg Allergies Allergies Allergy/AdvReac Type Severity Reaction Status Date / Time cefaclor [From Ceclor] Allergy Anaphylaxis Verified 08/19/23 16:33 codeine Allergy Vomiting Verified 08/26/23 14:28 doxycycline Allergy Unknown Verified 08/26/23 14:28 fish derived [fish] Allergy Unknown Verified 08/26/23 14:26 hydroxychloroquine Allergy Unknown Verified 08/26/23 14:28 levofloxacin [From Levaquin] Allergy Unknown Verified 08/26/23 14:28 peanut Allergy Unknown Verified 08/26/23 14:28 Sulfa (Sulfonamide Allergy Unknown Verified 08/26/23 14:26 Antibiotics) Assessment & Plan Assessment & Plan (1) Delusional disorder, persecutory type: Status: Acute Code(s): F22 - Delusional disorders Plan 09/06 continue tx. Reason for continued inpatient stay Substantial Risk for: inability to function Time Spent With Patient Time: Total time managing care of this patient today ____ minutes.
[2023-09-07] MEDS: Omeprazole 40 MG CAPSULE.DR PO ×2 (06:03→15:52)
[2023-09-07] MEDS: Levothyroxine Sodium 100 MCG TABLET PO (06:04)
[2023-09-07] MEDS: oxyCODONE HCl Immed Release 5 MG TABLET 10 MG PO ×3 (06:04→21:40)
[2023-09-07] MEDS: Ondansetron ODT 4 MG TAB.RAPDIS TRANSLINGU (06:32)
[2023-09-07 08:51] VITALS: BP 135/63; PULSE 94; RESP 17; TEMP 36.7; O2SAT 95
[2023-09-07 09:33] VITALS: BP 144/68; PULSE 64; O2SAT 93
[2023-09-07] MEDS: Acetaminophen 325 MG TABLET 650 MG PO ×3 (10:05→21:38)
[2023-09-07] MEDS: valACYclovir HCL 500 MG TABLET PO (10:06)
[2023-09-07] MEDS: Sennosides/Docusate Sodium TABLET 1 TAB PO ×2 (10:06→21:41)
[2023-09-07] MEDS: Aspirin Enteric Coated 81 MG TABLET.DR PO (10:06)
[2023-09-07] MEDS: Metoprolol Tartrate 12.5 MG HALFTAB PO ×2 (10:06→21:42)
[2023-09-07] MEDS: risperiDONE 1 MG TABLET PO ×2 (10:06→21:41)
[2023-09-07] MEDS: Dicyclomine HCl 10 MG CAPSULE 20 MG PO ×3 (10:06→21:42)
[2023-09-07] MEDS: guaiFENesin DM 600/30 1 TAB TAB.ER.12H PO ×2 (10:06→21:41)
[2023-09-07] MEDS: Lidocaine 4 % Patch ADH..PATCH 1 PATCH TRANSDERMA (10:10)
[2023-09-07] MEDS: Fluticasone Propionate Nasal 16 GM SPRAY 1 SPRAY NOSTRIL-B (10:13)
[2023-09-07 17:43] VITALS: BP 109/51; PULSE 63; RESP 16; TEMP 36.6; O2SAT 90
[2023-09-07 17:54] VITALS: O2SAT 96
[2023-09-07 23:00] VITALS: BP 148/64; PULSE 68; RESP 16; TEMP 36.4; O2SAT 96
[2023-09-08 05:00] VITALS: PULSE 68; RESP 16; O2SAT 97
[2023-09-08] MEDS: Levothyroxine Sodium 100 MCG TABLET PO (05:49)
[2023-09-08] MEDS: Omeprazole 40 MG CAPSULE.DR PO ×2 (05:49→15:30)
[2023-09-08] MEDS: diazePAM 2 MG TABLET 2.5 MG PO (05:49)
[2023-09-08 09:22] VITALS: BP 132/60; PULSE 70; RESP 16; TEMP 36.6; O2SAT 93
[2023-09-08] MEDS: guaiFENesin DM 600/30 1 TAB TAB.ER.12H PO ×2 (09:30→20:40)
[2023-09-08] MEDS: risperiDONE 1 MG TABLET PO ×2 (09:30→20:41)
[2023-09-08] MEDS: Sennosides/Docusate Sodium TABLET 1 TAB PO ×2 (09:30→20:41)
[2023-09-08] MEDS: Aspirin Enteric Coated 81 MG TABLET.DR PO (09:30)
[2023-09-08] MEDS: valACYclovir HCL 500 MG TABLET PO (09:30)
[2023-09-08] MEDS: Acetaminophen 325 MG TABLET 650 MG PO ×3 (09:30→20:39)
[2023-09-08] MEDS: Dicyclomine HCl 10 MG CAPSULE 20 MG PO ×3 (09:30→20:40)
[2023-09-08] MEDS: Metoprolol Tartrate 12.5 MG HALFTAB PO ×2 (09:30→20:40)
[2023-09-08] MEDS: Fluticasone Propionate Nasal 16 GM SPRAY 1 SPRAY NOSTRIL-B (09:36)
[2023-09-08] MEDS: Lidocaine 4 % Patch ADH..PATCH 1 PATCH TRANSDERMA (09:37)
[2023-09-08 15:00] VITALS: BP 159/74; PULSE 80; RESP 17; TEMP 36.4; O2SAT 96
[2023-09-08] MEDS: oxyCODONE HCl Immed Release 5 MG TABLET 10 MG PO (15:42)
[2023-09-08 21:00] VITALS: BP 130/62; PULSE 68; RESP 18; TEMP 36.1; O2SAT 94
[2023-09-08] MEDS: traZODone HCL 50 MG TABLET PO (21:08)
[2023-09-09] MEDS: Levothyroxine Sodium 100 MCG TABLET PO (06:06)
[2023-09-09] MEDS: Omeprazole 40 MG CAPSULE.DR PO ×2 (06:06→16:13)
[2023-09-09 09:07] VITALS: BP 135/60; PULSE 67; RESP 17; TEMP 36.4; O2SAT 94
[2023-09-09] MEDS: Metoprolol Tartrate 12.5 MG HALFTAB PO ×2 (09:10→21:33)
[2023-09-09] MEDS: valACYclovir HCL 500 MG TABLET PO (09:10)
[2023-09-09] MEDS: risperiDONE 1 MG TABLET PO ×2 (09:11→21:33)
[2023-09-09] MEDS: Loperamide HCl 2 MG CAPSULE PO (09:11)
[2023-09-09] MEDS: Sennosides/Docusate Sodium TABLET 1 TAB PO ×2 (09:12→21:32)
[2023-09-09] MEDS: guaiFENesin DM 600/30 1 TAB TAB.ER.12H PO ×2 (09:12→21:33)
[2023-09-09] MEDS: Aspirin Enteric Coated 81 MG TABLET.DR PO (09:12)
[2023-09-09] MEDS: oxyCODONE HCl Immed Release 5 MG TABLET 10 MG PO ×2 (09:13→18:15)
[2023-09-09] MEDS: Acetaminophen 325 MG TABLET 650 MG PO ×3 (09:13→21:32)
[2023-09-09] MEDS: Dicyclomine HCl 10 MG CAPSULE 20 MG PO ×3 (09:14→21:31)
[2023-09-09] MEDS: Lidocaine 4 % Patch ADH..PATCH 1 PATCH TRANSDERMA (09:16)
[2023-09-09] MEDS: Fluticasone Propionate Nasal 16 GM SPRAY 1 SPRAY NOSTRIL-B (09:19)
[2023-09-09 15:00] VITALS: BP 133/60; PULSE 79; RESP 17; TEMP 36.2; O2SAT 95
[2023-09-09 18:25] VITALS: BP 140/72; PULSE 78; RESP 16; TEMP 36.6; O2SAT 95
[2023-09-09] MEDS: traZODone HCL 50 MG TABLET PO (21:33)
[2023-09-10] MEDS: oxyCODONE HCl Immed Release 5 MG TABLET 10 MG PO ×3 (01:09→20:24)
[2023-09-10 08:30] VITALS: BP 181/77; PULSE 93; RESP 18; TEMP 36.6; O2SAT 95
[2023-09-10] MEDS: Levothyroxine Sodium 100 MCG TABLET PO (09:03)
[2023-09-10] MEDS: Aspirin Enteric Coated 81 MG TABLET.DR PO (09:04)
[2023-09-10] MEDS: Atorvastatin Calcium 40 MG TABLET PO (09:04)
[2023-09-10] MEDS: Dicyclomine HCl 10 MG CAPSULE 20 MG PO ×3 (09:04→20:25)
[2023-09-10] MEDS: guaiFENesin DM 600/30 1 TAB TAB.ER.12H PO ×2 (09:04→20:25)
[2023-09-10] MEDS: Omeprazole 40 MG CAPSULE.DR PO ×2 (09:04→16:21)
[2023-09-10] MEDS: risperiDONE 1 MG TABLET PO ×2 (09:04→20:25)
[2023-09-10] MEDS: valACYclovir HCL 500 MG TABLET PO (09:04)
[2023-09-10] MEDS: Metoprolol Tartrate 12.5 MG HALFTAB PO ×2 (09:05→20:25)
[2023-09-10] MEDS: Acetaminophen 325 MG TABLET 650 MG PO ×3 (09:05→20:25)
[2023-09-10] MEDS: Lidocaine 4 % Patch ADH..PATCH 1 PATCH TRANSDERMA (09:11)
[2023-09-10] MEDS: Fluticasone Propionate Nasal 16 GM SPRAY 1 SPRAY NOSTRIL-B (09:12)
--- NOTE | 2023-09-10 09:33 | HO.PSYCHPN ---
Subjective Subjective Date of Service: 09/10/23 Reason For Visit: delusions Subjective Notes: Conditional Voluntary Interim History: Pt slept most of the night. She reports she went to sleep later because she wanted to watch some movies. She denies SI/HI. She reports pain is under controlled. Less paranoid towards neighbors. She is taking meds. in rehab. She needs assistance with boot for ankle fracture. In terms of covid, pt much stable, no SOB, [id number]>95. afebrile Review of Systems Review of Systems per hpi Yes all other systems are reviewed and are negative Mental Status Exam Mental Status Exam Narrative: Appearance: wearing hospital gown, thin, in NAD Behavior: cooperative, friendly Psychomotor: no agitation or retardation noted Speech: clear, regular rate/rhythm/volume, spontaneous TP: linear to circumstance TC: Somewhat rambling issues regarding living situation Mood: not good Affect: anxious SI: denies HI: none Insight/judgment: impaired x 2. memory/cog: alert, oriented to hospital and situation, Diagnostics Vital Signs (24Hr): Vital Signs - 24 hr 09/09/23 15:00 09/09/23 18:25 Temperature 97.2 F 97.9 F Pulse Rate 79 78 Respiratory Rate 17 16 Blood Pressure 133/60 140/72 H Pulse Oximetry 95 95 Oxygen Delivery Method Room Air Room Air BMI result Body Mass Index 16.6 Labs 08/24/23 19:55 08/29/23 07:48 Imaging Radiology Impressions: ITS Impressions Head CT 08/24/23 20:20 IMPRESSION: No acute intracranial pathology. Chest X-Ray 08/25/23 02:00 IMPRESSION: Mild diffuse increased markings suspected to be chronic. No focal lung consolidation or pleural effusion Chest X-Ray 09/04/23 19:06 IMPRESSION: Hyperinflated lungs with no acute consolidation. Mild focal haziness in both upper lobes question postsurgical changes. Correlate clinically. Small 3 mm nodule right midlung. Ankle X-Ray 09/05/23 13:55 IMPRESSION: 1. Subtle nondisplaced fractures of the left medial and lateral malleoli with marked surrounding soft tissue swelling. 2. No acute fracture or malalignment at the pelvis, left hip, and left knee. 3. Minimal osteoarthritis in the left knee. 4. Degenerative disc disease in the lower lumbar spine. 5. Osteopenia. Hip/Pelvis X-Ray 09/05/23 13:55 IMPRESSION: 1. Subtle nondisplaced fractures of the left medial and lateral malleoli with marked surrounding soft tissue swelling. 2. No acute fracture or malalignment at the pelvis, left hip, and left knee. 3. Minimal osteoarthritis in the left knee. 4. Degenerative disc disease in the lower lumbar spine. 5. Osteopenia. Knee X-Ray 09/05/23 13:55 IMPRESSION: 1. Subtle nondisplaced fractures of the left medial and lateral malleoli with marked surrounding soft tissue swelling. 2. No acute fracture or malalignment at the pelvis, left hip, and left knee. 3. Minimal osteoarthritis in the left knee. 4. Degenerative disc disease in the lower lumbar spine. 5. Osteopenia. Head CT 09/05/23 14:03 IMPRESSION: No acute intracranial process seen. . Medications Medications Current Medications Acetaminophen (Acetaminophen 325 Mg Tablet) 650 mg PO TID [facility] Last Admin: 09/10/23 09:05 Dose: 650 mg Al Hydroxide/Mg Hydroxide (Magnesium Hydrox/Alum Hydrox 30 Ml Oral.Susp) 30 ml PO Q6H PRN PRN Reason: Heartburn/Nausea Last Admin: 09/03/23 11:52 Dose: 30 ml Albuterol/Ipratropium (Albuterol/Iprat 2.5/0.5mg 3 Ml Ampul.Neb) 3 ml INHALE RQ4H WHILE AWAKE PRN PRN Reason: Shortness of Breath/Wheezing Aspirin (Aspirin Enteric Coated 81 Mg Tablet.Dr) 81 mg PO DAILY [facility] Last Admin: 09/10/23 09:04 Dose: 81 mg Atorvastatin Calcium (Atorvastatin Calcium 40 Mg Tablet) 40 mg PO DAILY [facility] Last Admin: 09/10/23 09:04 Dose: 40 mg Diazepam (Diazepam 2 Mg Tablet) 2.5 mg PO TID PRN PRN Reason: Anxiety Last Admin: 09/08/23 05:49 Dose: 2.5 mg Dicyclomine HCl (Dicyclomine Hcl 10 Mg Capsule) 20 mg PO TID [facility] Last Admin: 09/10/23 09:04 Dose: 20 mg Diphenhydramine HCl (Diphenhydramine Hcl 25 Mg Capsule) 25 mg PO Q6H PRN PRN Reason: Cold Symptoms Last Admin: 09/04/23 04:08 Dose: 25 mg Fluticasone Propionate (Fluticasone Propionate Nasal 16 Gm [place]) 1 spray NOSTRIL-B DAILY [facility] Last Admin: 09/10/23 09:12 Dose: 1 spray Guaifenesin (Guaifenesin 200 Mg/10 Ml 10 Ml Liquid) 10 ml PO Q4H PRN PRN Reason: Cough Guaifenesin/Dextromethorphan (Guaifenesin Dm 600/30 1 Tab Tab.Er.12h) 1 tab PO BID [facility] Last Admin: 09/10/23 09:04 Dose: 1 tab Levothyroxine Sodium (Levothyroxine Sodium 100 Mcg Tablet) 100 mcg PO DAILY@0600 [facility] Last Admin: 09/10/23 09:03 Dose: 100 mcg Lidocaine (Lidocaine 4 % Patch Adh..Patch) 1 patch TRANSDERMA DAILY [facility]; Protocol Last Admin: 09/10/23 09:11 Dose: 1 patch Loperamide HCl (Loperamide Hcl 2 Mg Capsule) 2 mg PO Q4H PRN PRN Reason: Diarrhea Last Admin: 09/09/23 09:11 Dose: 2 mg Magnesium Hydroxide (Milk Of Magnesia 30 Ml Oral.Susp) 30 ml PO DAILY PRN PRN Reason: Constipation Metoprolol Tartrate (Metoprolol Tartrate 12.5 Mg Halftab) 12.5 mg PO BID [facility]; Protocol Last Admin: 09/10/23 09:05 Dose: 12.5 mg Pt Own (Albuterol (Sulfate 2 Mg Tablet)) 2 mg PO QID PRN PRN Reason: Shortness Of Breath Or Wheezing Last Admin: 09/08/23 09:33 Dose: 2 mg Omeprazole (Omeprazole 40 Mg Capsule.) 40 mg PO BID@0630,1630 [facility] Last Admin: 09/10/23 09:04 Dose: 40 mg Ondansetron HCl (Ondansetron Odt 4 Mg Tab.Rapdis) 4 mg TRANSLINGU Q6H PRN PRN Reason: Nausea and Vomiting Last Admin: 09/07/23 06:32 Dose: 4 mg Oxycodone HCl (Oxycodone Hcl Immed Release 5 Mg Tablet) 10 mg PO Q6H PRN PRN Reason: Pain, Severe (Pain Scale 7-10) Last Admin: 09/10/23 01:09 Dose: 10 mg Risperidone (Risperidone 1 Mg Tablet) 1 mg PO BID [facility] Last Admin: 09/10/23 09:04 Dose: 1 mg Senna/Docusate Sodium (Sennosides/Docusate Sodium Tablet) 1 tab PO BID [facility] Last Admin: 09/10/23 09:09 Dose: Not Given Simethicone (Simethicone 80 Mg Tab.Chew) 80 mg PO QIDWMHS PRN PRN Reason: bloating Last Admin: 08/31/23 15:34 Dose: 80 mg Sodium Chloride (Sodium Chloride 0.65 % Nasal 44 Ml Sprbtl) 1 spray NOSTRIL-B Q1H PRN PRN Reason: congestion/pnd Trazodone HCl (Trazodone Hcl 50 Mg Tablet) 50 mg PO BEDTIME PRN PRN Reason: Insomnia Last Admin: 09/09/23 21:33 Dose: 50 mg Valacyclovir HCl (Valacyclovir Hcl 500 Mg Tablet) 500 mg PO DAILY [facility] Last Admin: 09/10/23 09:04 Dose: 500 mg Allergies Allergies Allergy/AdvReac Type Severity Reaction Status Date / Time cefaclor [From Ceclor] Allergy Anaphylaxis Verified 08/19/23 16:33 codeine Allergy Vomiting Verified 08/26/23 14:28 doxycycline Allergy Unknown Verified 08/26/23 14:28 fish derived [fish] Allergy Unknown Verified 08/26/23 14:26 hydroxychloroquine Allergy Unknown Verified 08/26/23 14:28 levofloxacin [From Levaquin] Allergy Unknown Verified 08/26/23 14:28 peanut Allergy Unknown Verified 08/26/23 14:28 Sulfa (Sulfonamide Allergy Unknown Verified 08/26/23 14:26 Antibiotics) Assessment & Plan Assessment & Plan (1) Delusional disorder, persecutory type: Status: Acute Code(s): F22 - Delusional disorders Plan 09/06 continue tx. 09/10 continue tx. Reason for continued inpatient stay Substantial Risk for: inability to function Time Spent With Patient Time: Total time managing care of this patient today ____ minutes.
--- NOTE | 2023-09-10 09:56 | HO.PSYCHPN ---
Subjective Subjective Date of Service: 09/08/23 Reason For Visit: delusions Subjective Notes: Conditional Voluntary Interim History: Patient somewhat fatigued she is in isolation from COVID she did have a recent fall is in a full with mood from ankle fracture Medication Compliance: Yes Review of Systems Ankle fracture COVID Mental Status Exam Mental Status Exam Narrative: Appearance: wearing hospital gown, thin, in NAD Behavior: cooperative, friendly Psychomotor: no agitation or retardation noted Speech: clear, regular rate/rhythm/volume, spontaneous TP: linear to circumstance TC: Somewhat rambling issues regarding living situation Mood: not good Affect: anxious SI: denies HI: none Insight/judgment: impaired x 2. memory/cog: alert, oriented to hospital and situation, Diagnostics Vital Signs (24Hr): Vital Signs - 24 hr 09/09/23 15:00 09/09/23 18:25 Temperature 97.2 F 97.9 F Pulse Rate 79 78 Respiratory Rate 17 16 Blood Pressure 133/60 140/72 H Pulse Oximetry 95 95 Oxygen Delivery Method Room Air Room Air BMI result Body Mass Index 16.6 Labs 08/24/23 19:55 08/29/23 07:48 Imaging Radiology Impressions: ITS Impressions Head CT 08/24/23 20:20 IMPRESSION: No acute intracranial pathology. Chest X-Ray 08/25/23 02:00 IMPRESSION: Mild diffuse increased markings suspected to be chronic. No focal lung consolidation or pleural effusion Chest X-Ray 09/04/23 19:06 IMPRESSION: Hyperinflated lungs with no acute consolidation. Mild focal haziness in both upper lobes question postsurgical changes. Correlate clinically. Small 3 mm nodule right midlung. Ankle X-Ray 09/05/23 13:55 IMPRESSION: 1. Subtle nondisplaced fractures of the left medial and lateral malleoli with marked surrounding soft tissue swelling. 2. No acute fracture or malalignment at the pelvis, left hip, and left knee. 3. Minimal osteoarthritis in the left knee. 4. Degenerative disc disease in the lower lumbar spine. 5. Osteopenia. Hip/Pelvis X-Ray 09/05/23 13:55 IMPRESSION: 1. Subtle nondisplaced fractures of the left medial and lateral malleoli with marked surrounding soft tissue swelling. 2. No acute fracture or malalignment at the pelvis, left hip, and left knee. 3. Minimal osteoarthritis in the left knee. 4. Degenerative disc disease in the lower lumbar spine. 5. Osteopenia. Knee X-Ray 09/05/23 13:55 IMPRESSION: 1. Subtle nondisplaced fractures of the left medial and lateral malleoli with marked surrounding soft tissue swelling. 2. No acute fracture or malalignment at the pelvis, left hip, and left knee. 3. Minimal osteoarthritis in the left knee. 4. Degenerative disc disease in the lower lumbar spine. 5. Osteopenia. Head CT 09/05/23 14:03 IMPRESSION: No acute intracranial process seen. . Medications Medications Current Medications Acetaminophen (Acetaminophen 325 Mg Tablet) 650 mg PO TID [facility] Last Admin: 09/10/23 09:05 Dose: 650 mg Al Hydroxide/Mg Hydroxide (Magnesium Hydrox/Alum Hydrox 30 Ml Oral.Susp) 30 ml PO Q6H PRN PRN Reason: Heartburn/Nausea Last Admin: 09/03/23 11:52 Dose: 30 ml Albuterol/Ipratropium (Albuterol/Iprat 2.5/0.5mg 3 Ml Ampul.Neb) 3 ml INHALE RQ4H WHILE AWAKE PRN PRN Reason: Shortness of Breath/Wheezing Aspirin (Aspirin Enteric Coated 81 Mg Tablet.Dr) 81 mg PO DAILY [facility] Last Admin: 09/10/23 09:04 Dose: 81 mg Atorvastatin Calcium (Atorvastatin Calcium 40 Mg Tablet) 40 mg PO DAILY [facility] Last Admin: 09/10/23 09:04 Dose: 40 mg Diazepam (Diazepam 2 Mg Tablet) 2.5 mg PO TID PRN PRN Reason: Anxiety Last Admin: 09/08/23 05:49 Dose: 2.5 mg Dicyclomine HCl (Dicyclomine Hcl 10 Mg Capsule) 20 mg PO TID [facility] Last Admin: 09/10/23 09:04 Dose: 20 mg Diphenhydramine HCl (Diphenhydramine Hcl 25 Mg Capsule) 25 mg PO Q6H PRN PRN Reason: Cold Symptoms Last Admin: 09/04/23 04:08 Dose: 25 mg Fluticasone Propionate (Fluticasone Propionate Nasal 16 Gm [place]) 1 spray NOSTRIL-B DAILY [facility] Last Admin: 09/10/23 09:12 Dose: 1 spray Guaifenesin (Guaifenesin 200 Mg/10 Ml 10 Ml Liquid) 10 ml PO Q4H PRN PRN Reason: Cough Guaifenesin/Dextromethorphan (Guaifenesin Dm 600/30 1 Tab Tab.Er.12h) 1 tab PO BID [facility] Last Admin: 09/10/23 09:04 Dose: 1 tab Levothyroxine Sodium (Levothyroxine Sodium 100 Mcg Tablet) 100 mcg PO DAILY@0600 [facility] Last Admin: 09/10/23 09:03 Dose: 100 mcg Lidocaine (Lidocaine 4 % Patch Adh..Patch) 1 patch TRANSDERMA DAILY [facility]; Protocol Last Admin: 09/10/23 09:11 Dose: 1 patch Loperamide HCl (Loperamide Hcl 2 Mg Capsule) 2 mg PO Q4H PRN PRN Reason: Diarrhea Last Admin: 09/09/23 09:11 Dose: 2 mg Magnesium Hydroxide (Milk Of Magnesia 30 Ml Oral.Susp) 30 ml PO DAILY PRN PRN Reason: Constipation Metoprolol Tartrate (Metoprolol Tartrate 12.5 Mg Halftab) 12.5 mg PO BID [facility]; Protocol Last Admin: 09/10/23 09:05 Dose: 12.5 mg Pt Own (Albuterol (Sulfate 2 Mg Tablet)) 2 mg PO QID PRN PRN Reason: Shortness Of Breath Or Wheezing Last Admin: 09/08/23 09:33 Dose: 2 mg Omeprazole (Omeprazole 40 Mg Capsule.Dr) 40 mg PO BID@0630,1630 [facility] Last Admin: 09/10/23 09:04 Dose: 40 mg Ondansetron HCl (Ondansetron Odt 4 Mg Tab.Rapdis) 4 mg TRANSLINGU Q6H PRN PRN Reason: Nausea and Vomiting Last Admin: 09/07/23 06:32 Dose: 4 mg Oxycodone HCl (Oxycodone Hcl Immed Release 5 Mg Tablet) 10 mg PO Q6H PRN PRN Reason: Pain, Severe (Pain Scale 7-10) Last Admin: 09/10/23 01:09 Dose: 10 mg Risperidone (Risperidone 1 Mg Tablet) 1 mg PO BID [facility] Last Admin: 09/10/23 09:04 Dose: 1 mg Senna/Docusate Sodium (Sennosides/Docusate Sodium Tablet) 1 tab PO BID [facility] Last Admin: 09/10/23 09:09 Dose: Not Given Simethicone (Simethicone 80 Mg Tab.Chew) 80 mg PO QIDWMHS PRN PRN Reason: bloating Last Admin: 08/31/23 15:34 Dose: 80 mg Sodium Chloride (Sodium Chloride 0.65 % Nasal 44 Ml Sprbtl) 1 spray NOSTRIL-B Q1H PRN PRN Reason: congestion/pnd Trazodone HCl (Trazodone Hcl 50 Mg Tablet) 50 mg PO BEDTIME PRN PRN Reason: Insomnia Last Admin: 09/09/23 21:33 Dose: 50 mg Valacyclovir HCl (Valacyclovir Hcl 500 Mg Tablet) 500 mg PO DAILY [facility] Last Admin: 09/10/23 09:04 Dose: 500 mg Allergies Allergies Allergy/AdvReac Type Severity Reaction Status Date / Time cefaclor [From Ceclor] Allergy Anaphylaxis Verified 08/19/23 16:33 codeine Allergy Vomiting Verified 08/26/23 14:28 doxycycline Allergy Unknown Verified 08/26/23 14:28 fish derived [fish] Allergy Unknown Verified 08/26/23 14:26 hydroxychloroquine Allergy Unknown Verified 08/26/23 14:28 levofloxacin [From Levaquin] Allergy Unknown Verified 08/26/23 14:28 peanut Allergy Unknown Verified 08/26/23 14:28 Sulfa (Sulfonamide Allergy Unknown Verified 08/26/23 14:26 Antibiotics) Assessment & Plan Assessment & Plan (1) Delusional disorder, persecutory type: Status: Acute Code(s): F22 - Delusional disorders Plan 09/06 continue tx. 09/07/2023 continue plan of care late entry Patient educated on: medication risk/benefits and medical condition Informed Consent: further education needed Reason for continued inpatient stay Substantial Risk for: inability to function and rapid decompensation Time Spent With Patient Time: Total time managing care of this patient today ____ minutes.
--- NOTE | 2023-09-10 10:01 | HO.PSYCHPN ---
Subjective Subjective Date of Service: 09/08/23 Reason For Visit: delusions Subjective Notes: Conditional Voluntary Interim History: pt with anxiety somewhat rambling c/o some pain Side effects from medications: Yes Mental Status Exam Mental Status Exam Narrative: Appearance: wearing hospital gown, thin, in NAD Behavior: cooperative, friendly Psychomotor: no agitation or retardation noted Speech: clear, regular rate/rhythm/volume, spontaneous TP: linear to circumstance TC: Somewhat rambling issues regarding living situation Mood:anxious Affect: anxious SI: denies HI: none Insight/judgment: impaired x 2. memory/cog: alert, oriented to hospital and situation, Diagnostics Vital Signs (24Hr): Vital Signs - 24 hr 09/09/23 15:00 09/09/23 18:25 Temperature 97.2 F 97.9 F Pulse Rate 79 78 Respiratory Rate 17 16 Blood Pressure 133/60 140/72 H Pulse Oximetry 95 95 Oxygen Delivery Method Room Air Room Air BMI result Body Mass Index 16.6 Labs 08/24/23 19:55 08/29/23 07:48 Imaging Radiology Impressions: ITS Impressions Head CT 08/24/23 20:20 IMPRESSION: No acute intracranial pathology. Chest X-Ray 08/25/23 02:00 IMPRESSION: Mild diffuse increased markings suspected to be chronic. No focal lung consolidation or pleural effusion Chest X-Ray 09/04/23 19:06 IMPRESSION: Hyperinflated lungs with no acute consolidation. Mild focal haziness in both upper lobes question postsurgical changes. Correlate clinically. Small 3 mm nodule right midlung. Ankle X-Ray 09/05/23 13:55 IMPRESSION: 1. Subtle nondisplaced fractures of the left medial and lateral malleoli with marked surrounding soft tissue swelling. 2. No acute fracture or malalignment at the pelvis, left hip, and left knee. 3. Minimal osteoarthritis in the left knee. 4. Degenerative disc disease in the lower lumbar spine. 5. Osteopenia. Hip/Pelvis X-Ray 09/05/23 13:55 IMPRESSION: 1. Subtle nondisplaced fractures of the left medial and lateral malleoli with marked surrounding soft tissue swelling. 2. No acute fracture or malalignment at the pelvis, left hip, and left knee. 3. Minimal osteoarthritis in the left knee. 4. Degenerative disc disease in the lower lumbar spine. 5. Osteopenia. Knee X-Ray 09/05/23 13:55 IMPRESSION: 1. Subtle nondisplaced fractures of the left medial and lateral malleoli with marked surrounding soft tissue swelling. 2. No acute fracture or malalignment at the pelvis, left hip, and left knee. 3. Minimal osteoarthritis in the left knee. 4. Degenerative disc disease in the lower lumbar spine. 5. Osteopenia. Head CT 09/05/23 14:03 IMPRESSION: No acute intracranial process seen. . Medications Medications Current Medications Acetaminophen (Acetaminophen 325 Mg Tablet) 650 mg PO TID [facility] Last Admin: 09/10/23 09:05 Dose: 650 mg Al Hydroxide/Mg Hydroxide (Magnesium Hydrox/Alum Hydrox 30 Ml Oral.Susp) 30 ml PO Q6H PRN PRN Reason: Heartburn/Nausea Last Admin: 09/03/23 11:52 Dose: 30 ml Albuterol/Ipratropium (Albuterol/Iprat 2.5/0.5mg 3 Ml Ampul.Neb) 3 ml INHALE RQ4H WHILE AWAKE PRN PRN Reason: Shortness of Breath/Wheezing Aspirin (Aspirin Enteric Coated 81 Mg Tablet.Dr) 81 mg PO DAILY [facility] Last Admin: 09/10/23 09:04 Dose: 81 mg Atorvastatin Calcium (Atorvastatin Calcium 40 Mg Tablet) 40 mg PO DAILY [facility] Last Admin: 09/10/23 09:04 Dose: 40 mg Diazepam (Diazepam 2 Mg Tablet) 2.5 mg PO TID PRN PRN Reason: Anxiety Last Admin: 09/08/23 05:49 Dose: 2.5 mg Dicyclomine HCl (Dicyclomine Hcl 10 Mg Capsule) 20 mg PO TID [facility] Last Admin: 09/10/23 09:04 Dose: 20 mg Diphenhydramine HCl (Diphenhydramine Hcl 25 Mg Capsule) 25 mg PO Q6H PRN PRN Reason: Cold Symptoms Last Admin: 09/04/23 04:08 Dose: 25 mg Fluticasone Propionate (Fluticasone Propionate Nasal 16 Gm [place]) 1 spray NOSTRIL-B DAILY [facility] Last Admin: 09/10/23 09:12 Dose: 1 spray Guaifenesin (Guaifenesin 200 Mg/10 Ml 10 Ml Liquid) 10 ml PO Q4H PRN PRN Reason: Cough Guaifenesin/Dextromethorphan (Guaifenesin Dm 600/30 1 Tab Tab.Er.12h) 1 tab PO BID [facility] Last Admin: 09/10/23 09:04 Dose: 1 tab Levothyroxine Sodium (Levothyroxine Sodium 100 Mcg Tablet) 100 mcg PO DAILY@0600 [facility] Last Admin: 09/10/23 09:03 Dose: 100 mcg Lidocaine (Lidocaine 4 % Patch Adh..Patch) 1 patch TRANSDERMA DAILY [facility]; Protocol Last Admin: 09/10/23 09:11 Dose: 1 patch Loperamide HCl (Loperamide Hcl 2 Mg Capsule) 2 mg PO Q4H PRN PRN Reason: Diarrhea Last Admin: 09/09/23 09:11 Dose: 2 mg Magnesium Hydroxide (Milk Of Magnesia 30 Ml Oral.Susp) 30 ml PO DAILY PRN PRN Reason: Constipation Metoprolol Tartrate (Metoprolol Tartrate 12.5 Mg Halftab) 12.5 mg PO BID [facility]; Protocol Last Admin: 09/10/23 09:05 Dose: 12.5 mg Pt Own (Albuterol (Sulfate 2 Mg Tablet)) 2 mg PO QID PRN PRN Reason: Shortness Of Breath Or Wheezing Last Admin: 09/08/23 09:33 Dose: 2 mg Omeprazole (Omeprazole 40 Mg Capsule.Dr) 40 mg PO BID@0630,1630 [facility] Last Admin: 09/10/23 09:04 Dose: 40 mg Ondansetron HCl (Ondansetron Odt 4 Mg Tab.Rapdis) 4 mg TRANSLINGU Q6H PRN PRN Reason: Nausea and Vomiting Last Admin: 09/07/23 06:32 Dose: 4 mg Oxycodone HCl (Oxycodone Hcl Immed Release 5 Mg Tablet) 10 mg PO Q6H PRN PRN Reason: Pain, Severe (Pain Scale 7-10) Last Admin: 09/10/23 01:09 Dose: 10 mg Risperidone (Risperidone 1 Mg Tablet) 1 mg PO BID [facility] Last Admin: 09/10/23 09:04 Dose: 1 mg Senna/Docusate Sodium (Sennosides/Docusate Sodium Tablet) 1 tab PO BID [facility] Last Admin: 09/10/23 09:09 Dose: Not Given Simethicone (Simethicone 80 Mg Tab.Chew) 80 mg PO QIDWMHS PRN PRN Reason: bloating Last Admin: 08/31/23 15:34 Dose: 80 mg Sodium Chloride (Sodium Chloride 0.65 % Nasal 44 Ml Sprbtl) 1 spray NOSTRIL-B Q1H PRN PRN Reason: congestion/pnd Trazodone HCl (Trazodone Hcl 50 Mg Tablet) 50 mg PO BEDTIME PRN PRN Reason: Insomnia Last Admin: 09/09/23 21:33 Dose: 50 mg Valacyclovir HCl (Valacyclovir Hcl 500 Mg Tablet) 500 mg PO DAILY [facility] Last Admin: 09/10/23 09:04 Dose: 500 mg Allergies Allergies Allergy/AdvReac Type Severity Reaction Status Date / Time cefaclor [From Ceclor] Allergy Anaphylaxis Verified 08/19/23 16:33 codeine Allergy Vomiting Verified 08/26/23 14:28 doxycycline Allergy Unknown Verified 08/26/23 14:28 fish derived [fish] Allergy Unknown Verified 08/26/23 14:26 hydroxychloroquine Allergy Unknown Verified 08/26/23 14:28 levofloxacin [From Levaquin] Allergy Unknown Verified 08/26/23 14:28 peanut Allergy Unknown Verified 08/26/23 14:28 Sulfa (Sulfonamide Allergy Unknown Verified 08/26/23 14:26 Antibiotics) Assessment & Plan Assessment & Plan (1) Delusional disorder, persecutory type: Status: Acute Code(s): F22 - Delusional disorders Plan 09/06 continue tx. 09/07/2023 continue plan of care late entry 09/08 cont risperadol monitor pulmonary fx ability to walk Reason for continued inpatient stay Substantial Risk for: inability to function and rapid decompensation Time Spent With Patient Time: Total time managing care of this patient today ____ minutes.
--- NOTE | 2023-09-10 10:02 | HO.PSYCHPN ---
Subjective Subjective Date of Service: 09/10/23 Reason For Visit: delusions Subjective Notes: Conditional Voluntary Interim History: Pt calm cooperative not overly agitated no sob Medication Compliance: Yes Review of Systems Acute medical concerns: Yes s/p covid Mental Status Exam Mental Status Exam Narrative: Appearance: wearing hospital gown, thin, in NAD Behavior: cooperative, friendly Psychomotor: no agitation or retardation noted Speech: clear, regular rate/rhythm/volume, spontaneous TP: linear to circumstance TC: Somewhat rambling issues regarding living situation ongoing Mood:anxious Affect: anxious SI: denies HI: none Insight/judgment: impaired x 2. memory/cog: alert, oriented to hospital and situation, Diagnostics Vital Signs (24Hr): Vital Signs - 24 hr 09/09/23 15:00 09/09/23 18:25 Temperature 97.2 F 97.9 F Pulse Rate 79 78 Respiratory Rate 17 16 Blood Pressure 133/60 140/72 H Pulse Oximetry 95 95 Oxygen Delivery Method Room Air Room Air BMI result Body Mass Index 16.6 Labs 08/24/23 19:55 08/29/23 07:48 Imaging Radiology Impressions: ITS Impressions Head CT 08/24/23 20:20 IMPRESSION: No acute intracranial pathology. Chest X-Ray 08/25/23 02:00 IMPRESSION: Mild diffuse increased markings suspected to be chronic. No focal lung consolidation or pleural effusion Chest X-Ray 09/04/23 19:06 IMPRESSION: Hyperinflated lungs with no acute consolidation. Mild focal haziness in both upper lobes question postsurgical changes. Correlate clinically. Small 3 mm nodule right midlung. Ankle X-Ray 09/05/23 13:55 IMPRESSION: 1. Subtle nondisplaced fractures of the left medial and lateral malleoli with marked surrounding soft tissue swelling. 2. No acute fracture or malalignment at the pelvis, left hip, and left knee. 3. Minimal osteoarthritis in the left knee. 4. Degenerative disc disease in the lower lumbar spine. 5. Osteopenia. Hip/Pelvis X-Ray 09/05/23 13:55 IMPRESSION: 1. Subtle nondisplaced fractures of the left medial and lateral malleoli with marked surrounding soft tissue swelling. 2. No acute fracture or malalignment at the pelvis, left hip, and left knee. 3. Minimal osteoarthritis in the left knee. 4. Degenerative disc disease in the lower lumbar spine. 5. Osteopenia. Knee X-Ray 09/05/23 13:55 IMPRESSION: 1. Subtle nondisplaced fractures of the left medial and lateral malleoli with marked surrounding soft tissue swelling. 2. No acute fracture or malalignment at the pelvis, left hip, and left knee. 3. Minimal osteoarthritis in the left knee. 4. Degenerative disc disease in the lower lumbar spine. 5. Osteopenia. Head CT 09/05/23 14:03 IMPRESSION: No acute intracranial process seen. . Medications Medications Current Medications Acetaminophen (Acetaminophen 325 Mg Tablet) 650 mg PO TID [facility] Last Admin: 09/10/23 09:05 Dose: 650 mg Al Hydroxide/Mg Hydroxide (Magnesium Hydrox/Alum Hydrox 30 Ml Oral.Susp) 30 ml PO Q6H PRN PRN Reason: Heartburn/Nausea Last Admin: 09/03/23 11:52 Dose: 30 ml Albuterol/Ipratropium (Albuterol/Iprat 2.5/0.5mg 3 Ml Ampul.Neb) 3 ml INHALE RQ4H WHILE AWAKE PRN PRN Reason: Shortness of Breath/Wheezing Aspirin (Aspirin Enteric Coated 81 Mg Tablet.Dr) 81 mg PO DAILY [facility] Last Admin: 09/10/23 09:04 Dose: 81 mg Atorvastatin Calcium (Atorvastatin Calcium 40 Mg Tablet) 40 mg PO DAILY [facility] Last Admin: 09/10/23 09:04 Dose: 40 mg Diazepam (Diazepam 2 Mg Tablet) 2.5 mg PO TID PRN PRN Reason: Anxiety Last Admin: 09/08/23 05:49 Dose: 2.5 mg Dicyclomine HCl (Dicyclomine Hcl 10 Mg Capsule) 20 mg PO TID [facility] Last Admin: 09/10/23 09:04 Dose: 20 mg Diphenhydramine HCl (Diphenhydramine Hcl 25 Mg Capsule) 25 mg PO Q6H PRN PRN Reason: Cold Symptoms Last Admin: 09/04/23 04:08 Dose: 25 mg Fluticasone Propionate (Fluticasone Propionate Nasal 16 Gm [place]) 1 spray NOSTRIL-B DAILY [facility] Last Admin: 09/10/23 09:12 Dose: 1 spray Guaifenesin (Guaifenesin 200 Mg/10 Ml 10 Ml Liquid) 10 ml PO Q4H PRN PRN Reason: Cough Guaifenesin/Dextromethorphan (Guaifenesin Dm 600/30 1 Tab Tab.Er.12h) 1 tab PO BID [facility] Last Admin: 09/10/23 09:04 Dose: 1 tab Levothyroxine Sodium (Levothyroxine Sodium 100 Mcg Tablet) 100 mcg PO DAILY@0600 [facility] Last Admin: 09/10/23 09:03 Dose: 100 mcg Lidocaine (Lidocaine 4 % Patch Adh..Patch) 1 patch TRANSDERMA DAILY [facility]; Protocol Last Admin: 09/10/23 09:11 Dose: 1 patch Loperamide HCl (Loperamide Hcl 2 Mg Capsule) 2 mg PO Q4H PRN PRN Reason: Diarrhea Last Admin: 09/09/23 09:11 Dose: 2 mg Magnesium Hydroxide (Milk Of Magnesia 30 Ml Oral.Susp) 30 ml PO DAILY PRN PRN Reason: Constipation Metoprolol Tartrate (Metoprolol Tartrate 12.5 Mg Halftab) 12.5 mg PO BID [facility]; Protocol Last Admin: 09/10/23 09:05 Dose: 12.5 mg Pt Own (Albuterol (Sulfate 2 Mg Tablet)) 2 mg PO QID PRN PRN Reason: Shortness Of Breath Or Wheezing Last Admin: 09/08/23 09:33 Dose: 2 mg Omeprazole (Omeprazole 40 Mg Capsule.Dr) 40 mg PO BID@0630,1630 [facility] Last Admin: 09/10/23 09:04 Dose: 40 mg Ondansetron HCl (Ondansetron Odt 4 Mg Tab.Rapdis) 4 mg TRANSLINGU Q6H PRN PRN Reason: Nausea and Vomiting Last Admin: 09/07/23 06:32 Dose: 4 mg Oxycodone HCl (Oxycodone Hcl Immed Release 5 Mg Tablet) 10 mg PO Q6H PRN PRN Reason: Pain, Severe (Pain Scale 7-10) Last Admin: 09/10/23 01:09 Dose: 10 mg Risperidone (Risperidone 1 Mg Tablet) 1 mg PO BID [facility] Last Admin: 09/10/23 09:04 Dose: 1 mg Senna/Docusate Sodium (Sennosides/Docusate Sodium Tablet) 1 tab PO BID [facility] Last Admin: 09/10/23 09:09 Dose: Not Given Simethicone (Simethicone 80 Mg Tab.Chew) 80 mg PO QIDWMHS PRN PRN Reason: bloating Last Admin: 08/31/23 15:34 Dose: 80 mg Sodium Chloride (Sodium Chloride 0.65 % Nasal 44 Ml Sprbtl) 1 spray NOSTRIL-B Q1H PRN PRN Reason: congestion/pnd Trazodone HCl (Trazodone Hcl 50 Mg Tablet) 50 mg PO BEDTIME PRN PRN Reason: Insomnia Last Admin: 09/09/23 21:33 Dose: 50 mg Valacyclovir HCl (Valacyclovir Hcl 500 Mg Tablet) 500 mg PO DAILY [facility] Last Admin: 09/10/23 09:04 Dose: 500 mg Allergies Allergies Allergy/AdvReac Type Severity Reaction Status Date / Time cefaclor [From Ceclor] Allergy Anaphylaxis Verified 08/19/23 16:33 codeine Allergy Vomiting Verified 08/26/23 14:28 doxycycline Allergy Unknown Verified 08/26/23 14:28 fish derived [fish] Allergy Unknown Verified 08/26/23 14:26 hydroxychloroquine Allergy Unknown Verified 08/26/23 14:28 levofloxacin [From Levaquin] Allergy Unknown Verified 08/26/23 14:28 peanut Allergy Unknown Verified 08/26/23 14:28 Sulfa (Sulfonamide Allergy Unknown Verified 08/26/23 14:26 Antibiotics) Assessment & Plan Assessment & Plan (1) Delusional disorder, persecutory type: Status: Acute Code(s): F22 - Delusional disorders Plan 09/06 continue tx. 09/07/2023 continue plan of care late entry Patient educated on: medication risk/benefits and medical condition Informed Consent: further education needed Reason for continued inpatient stay Substantial Risk for: inability to function and rapid decompensation Time Spent With Patient Time: Total time managing care of this patient today ____ minutes.
[2023-09-10 12:00] VITALS: BP 143/64; PULSE 71
[2023-09-10 18:00] VITALS: BP 142/67; PULSE 71; RESP 18; TEMP 36; O2SAT 95
[2023-09-10] MEDS: traZODone HCL 50 MG TABLET PO (20:25)
[2023-09-10] MEDS: Sennosides/Docusate Sodium TABLET 1 TAB PO (20:25)
[2023-09-11] MEDS: oxyCODONE HCl Immed Release 5 MG TABLET 10 MG PO ×4 (02:44→23:29)
[2023-09-11] MEDS: diazePAM 2 MG TABLET 2.5 MG PO ×2 (02:45→23:30)
[2023-09-11] MEDS: Levothyroxine Sodium 100 MCG TABLET PO (05:47)
[2023-09-11] MEDS: Omeprazole 40 MG CAPSULE.DR PO ×2 (05:47→16:31)
[2023-09-11 08:00] VITALS: BP 107/58; PULSE 79; RESP 18; TEMP 36.6; O2SAT 97
[2023-09-11] MEDS: Acetaminophen 325 MG TABLET 650 MG PO ×3 (09:51→20:23)
[2023-09-11] MEDS: guaiFENesin DM 600/30 1 TAB TAB.ER.12H PO ×2 (09:52→20:22)
[2023-09-11] MEDS: Dicyclomine HCl 10 MG CAPSULE 20 MG PO ×3 (09:52→20:20)
[2023-09-11] MEDS: Aspirin Enteric Coated 81 MG TABLET.DR PO (09:52)
[2023-09-11] MEDS: Atorvastatin Calcium 40 MG TABLET PO (09:52)
[2023-09-11] MEDS: valACYclovir HCL 500 MG TABLET PO (09:52)
[2023-09-11] MEDS: Metoprolol Tartrate 12.5 MG HALFTAB PO ×2 (09:52→20:21)
[2023-09-11] MEDS: risperiDONE 1 MG TABLET PO ×2 (09:53→20:25)
[2023-09-11] MEDS: Lidocaine 4 % Patch ADH..PATCH 1 PATCH TRANSDERMA (09:54)
[2023-09-11] MEDS: Fluticasone Propionate Nasal 16 GM SPRAY 1 SPRAY NOSTRIL-B (09:55)
--- NOTE | 2023-09-11 11:32 | MHC.CLN ---
F/U DIET=REGULAR WITH ENSURE BID. SUPPLEMENT PROVIDES 700 KCALS, 40 G PROTEIN. COVID+ ON 09/03. VARIABLE INTAKE, 25-100%. NO NEW NUTRITION INTERVENTIONS. RD TO FOLLOW WEEKLY.
--- NOTE | 2023-09-11 12:02 | HO.PSYCHPN ---
Subjective Subjective Date of Service: 09/11/23 Reason For Visit: delusions Subjective Notes: Conditional Voluntary Interim History: Pt with positive outlook. She reports feeling better from covid, no sob, no congestion, breathing better. She denies SI/HI. She reports pain of fracture of ankle is better. She reports overall feeling much less anxious and less overwhelmed about neighbors than when she first came here to the hospital. VS stable, o2sat 97 on RA. BP on low side, encouraged to take fluids. Review of Systems Review of Systems per hpi Yes all other systems are reviewed and are negative Mental Status Exam Mental Status Exam Narrative: Appearance: wearing hospital gown, thin, in NAD Behavior: cooperative, friendly Psychomotor: no agitation or retardation noted Speech: clear, regular rate/rhythm/volume, spontaneous TP: linear to circumstance TC: Somewhat rambling issues regarding living situation ongoing Mood:anxious Affect: anxious SI: denies HI: none Insight/judgment: impaired x 2. memory/cog: alert, oriented to hospital and situation, Diagnostics Vital Signs (24Hr): Vital Signs - 24 hr 09/10/23 18:00 09/11/23 08:00 Temperature 96.8 F 97.9 F Pulse Rate 71 79 Respiratory Rate 18 18 Blood Pressure 142/67 H 107/58 L Pulse Oximetry 95 97 Oxygen Delivery Method Room Air BMI result Body Mass Index 16.6 Labs 08/24/23 19:55 08/29/23 07:48 Imaging Radiology Impressions: ITS Impressions Head CT 08/24/23 20:20 IMPRESSION: No acute intracranial pathology. Chest X-Ray 08/25/23 02:00 IMPRESSION: Mild diffuse increased markings suspected to be chronic. No focal lung consolidation or pleural effusion Chest X-Ray 09/04/23 19:06 IMPRESSION: Hyperinflated lungs with no acute consolidation. Mild focal haziness in both upper lobes question postsurgical changes. Correlate clinically. Small 3 mm nodule right midlung. Ankle X-Ray 09/05/23 13:55 IMPRESSION: 1. Subtle nondisplaced fractures of the left medial and lateral malleoli with marked surrounding soft tissue swelling. 2. No acute fracture or malalignment at the pelvis, left hip, and left knee. 3. Minimal osteoarthritis in the left knee. 4. Degenerative disc disease in the lower lumbar spine. 5. Osteopenia. Hip/Pelvis X-Ray 09/05/23 13:55 IMPRESSION: 1. Subtle nondisplaced fractures of the left medial and lateral malleoli with marked surrounding soft tissue swelling. 2. No acute fracture or malalignment at the pelvis, left hip, and left knee. 3. Minimal osteoarthritis in the left knee. 4. Degenerative disc disease in the lower lumbar spine. 5. Osteopenia. Knee X-Ray 09/05/23 13:55 IMPRESSION: 1. Subtle nondisplaced fractures of the left medial and lateral malleoli with marked surrounding soft tissue swelling. 2. No acute fracture or malalignment at the pelvis, left hip, and left knee. 3. Minimal osteoarthritis in the left knee. 4. Degenerative disc disease in the lower lumbar spine. 5. Osteopenia. Head CT 09/05/23 14:03 IMPRESSION: No acute intracranial process seen. . Medications Medications Current Medications Acetaminophen (Acetaminophen 325 Mg Tablet) 650 mg PO TID [facility] Last Admin: 09/11/23 09:51 Dose: 650 mg Al Hydroxide/Mg Hydroxide (Magnesium Hydrox/Alum Hydrox 30 Ml Oral.Susp) 30 ml PO Q6H PRN PRN Reason: Heartburn/Nausea Last Admin: 09/03/23 11:52 Dose: 30 ml Albuterol/Ipratropium (Albuterol/Iprat 2.5/0.5mg 3 Ml Ampul.Neb) 3 ml INHALE RQ4H WHILE AWAKE PRN PRN Reason: Shortness of Breath/Wheezing Aspirin (Aspirin Enteric Coated 81 Mg Tablet.Dr) 81 mg PO DAILY [facility] Last Admin: 09/11/23 09:52 Dose: 81 mg Atorvastatin Calcium (Atorvastatin Calcium 40 Mg Tablet) 40 mg PO DAILY [facility] Last Admin: 09/11/23 09:52 Dose: 40 mg Diazepam (Diazepam 2 Mg Tablet) 2.5 mg PO TID PRN PRN Reason: Anxiety Last Admin: 09/11/23 02:45 Dose: 2.5 mg Dicyclomine HCl (Dicyclomine Hcl 10 Mg Capsule) 20 mg PO TID [facility] Last Admin: 09/11/23 09:52 Dose: 20 mg Diphenhydramine HCl (Diphenhydramine Hcl 25 Mg Capsule) 25 mg PO Q6H PRN PRN Reason: Cold Symptoms Last Admin: 09/04/23 04:08 Dose: 25 mg Fluticasone Propionate (Fluticasone Propionate Nasal 16 Gm [place]) 1 spray NOSTRIL-B DAILY [facility] Last Admin: 09/11/23 09:55 Dose: 1 spray Guaifenesin (Guaifenesin 200 Mg/10 Ml 10 Ml Liquid) 10 ml PO Q4H PRN PRN Reason: Cough Guaifenesin/Dextromethorphan (Guaifenesin Dm 600/30 1 Tab Tab.Er.12h) 1 tab PO BID [facility] Last Admin: 09/11/23 09:52 Dose: 1 tab Levothyroxine Sodium (Levothyroxine Sodium 100 Mcg Tablet) 100 mcg PO DAILY@0600 [facility] Last Admin: 09/11/23 05:47 Dose: 100 mcg Lidocaine (Lidocaine 4 % Patch Adh..Patch) 1 patch TRANSDERMA DAILY [facility]; Protocol Last Admin: 09/11/23 09:54 Dose: 1 patch Loperamide HCl (Loperamide Hcl 2 Mg Capsule) 2 mg PO Q4H PRN PRN Reason: Diarrhea Last Admin: 09/09/23 09:11 Dose: 2 mg Magnesium Hydroxide (Milk Of Magnesia 30 Ml Oral.Susp) 30 ml PO DAILY PRN PRN Reason: Constipation Metoprolol Tartrate (Metoprolol Tartrate 12.5 Mg Halftab) 12.5 mg PO BID [facility]; Protocol Last Admin: 09/11/23 09:52 Dose: 12.5 mg Pt Own (Albuterol (Sulfate 2 Mg Tablet)) 2 mg PO QID PRN PRN Reason: Shortness Of Breath Or Wheezing Last Admin: 09/08/23 09:33 Dose: 2 mg Omeprazole (Omeprazole 40 Mg Capsule.Dr) 40 mg PO BID@0630,1630 [facility] Last Admin: 09/11/23 05:47 Dose: 40 mg Ondansetron HCl (Ondansetron Odt 4 Mg Tab.Rapdis) 4 mg TRANSLINGU Q6H PRN PRN Reason: Nausea and Vomiting Last Admin: 09/07/23 06:32 Dose: 4 mg Oxycodone HCl (Oxycodone Hcl Immed Release 5 Mg Tablet) 10 mg PO Q6H PRN PRN Reason: Pain, Severe (Pain Scale 7-10) Last Admin: 09/11/23 10:02 Dose: 10 mg Risperidone (Risperidone 1 Mg Tablet) 1 mg PO BID [facility] Last Admin: 09/11/23 09:53 Dose: 1 mg Senna/Docusate Sodium (Sennosides/Docusate Sodium Tablet) 1 tab PO BID [facility] Last Admin: 09/11/23 09:54 Dose: Not Given Simethicone (Simethicone 80 Mg Tab.Chew) 80 mg PO QIDWMHS PRN PRN Reason: bloating Last Admin: 08/31/23 15:34 Dose: 80 mg Sodium Chloride (Sodium Chloride 0.65 % Nasal 44 Ml Sprbtl) 1 spray NOSTRIL-B Q1H PRN PRN Reason: congestion/pnd Trazodone HCl (Trazodone Hcl 50 Mg Tablet) 50 mg PO BEDTIME PRN PRN Reason: Insomnia Last Admin: 09/10/23 20:25 Dose: 50 mg Valacyclovir HCl (Valacyclovir Hcl 500 Mg Tablet) 500 mg PO DAILY [facility] Last Admin: 09/11/23 09:52 Dose: 500 mg Allergies Allergies Allergy/AdvReac Type Severity Reaction Status Date / Time cefaclor [From Ceclor] Allergy Anaphylaxis Verified 08/19/23 16:33 codeine Allergy Vomiting Verified 08/26/23 14:28 doxycycline Allergy Unknown Verified 08/26/23 14:28 fish derived [fish] Allergy Unknown Verified 08/26/23 14:26 hydroxychloroquine Allergy Unknown Verified 08/26/23 14:28 levofloxacin [From Levaquin] Allergy Unknown Verified 08/26/23 14:28 peanut Allergy Unknown Verified 08/26/23 14:28 Sulfa (Sulfonamide Allergy Unknown Verified 08/26/23 14:26 Antibiotics) Assessment & Plan Assessment & Plan (1) Delusional disorder, persecutory type: Status: Acute Code(s): F22 - Delusional disorders Plan 09/11 continue tx. feeling better from covid. will retest to see if still needs isolation. Reason for continued inpatient stay Substantial Risk for: inability to function Time Spent With Patient Time: Total time managing care of this patient today ____ minutes.
[2023-09-11 16:19] LABS: COVID-19 Test Positive (Negative); IDNOW Serial# 08D9AD1C
[2023-09-11 19:30] VITALS: BP 146/64; PULSE 66; RESP 18; TEMP 35.8; O2SAT 93
[2023-09-11 22:00] VITALS: BP 146/64; PULSE 66; RESP 16; TEMP 35.8; O2SAT 93
[2023-09-12] MEDS: Levothyroxine Sodium 100 MCG TABLET PO (05:30)
[2023-09-12] MEDS: Omeprazole 40 MG CAPSULE.DR PO ×2 (05:30→16:20)
[2023-09-12 08:52] VITALS: BP 115/57; PULSE 95; RESP 18; TEMP 36.4; O2SAT 97
[2023-09-12] MEDS: valACYclovir HCL 500 MG TABLET PO (08:55)
[2023-09-12] MEDS: Aspirin Enteric Coated 81 MG TABLET.DR PO (08:56)
[2023-09-12] MEDS: risperiDONE 1 MG TABLET PO ×2 (08:56→20:33)
[2023-09-12] MEDS: Dicyclomine HCl 10 MG CAPSULE 20 MG PO ×3 (08:56→20:34)
[2023-09-12] MEDS: Atorvastatin Calcium 40 MG TABLET PO (08:56)
[2023-09-12] MEDS: Metoprolol Tartrate 12.5 MG HALFTAB PO ×2 (08:57→20:33)
[2023-09-12] MEDS: Acetaminophen 325 MG TABLET 650 MG PO ×3 (08:57→20:34)
[2023-09-12] MEDS: guaiFENesin DM 600/30 1 TAB TAB.ER.12H PO ×2 (08:58→20:33)
[2023-09-12] MEDS: Lidocaine 4 % Patch ADH..PATCH 1 PATCH TRANSDERMA (08:58)
--- NOTE | 2023-09-12 09:05 | HO.PSYCHPN ---
Subjective Subjective Date of Service: 09/12/23 Reason For Visit: delusions Subjective Notes: Conditional Voluntary Interim History: Pt continues to report feeling better. Pt denies no sob, no congestion, breathing better. She denies SI/HI. She reports pain of fracture of ankle is better. She reports overall feeling much less anxious and less overwhelmed about neighbors than when she first came here to the hospital. VS stable, o2sat 97 on RA. BP on low side, encouraged to take fluids. Review of Systems Review of Systems per hpi Yes all other systems are reviewed and are negative Mental Status Exam Mental Status Exam Narrative: Appearance: wearing hospital gown, thin, in NAD Behavior: cooperative, friendly Psychomotor: no agitation or retardation noted Speech: clear, regular rate/rhythm/volume, spontaneous TP: linear to circumstance TC: Somewhat rambling issues regarding living situation ongoing Mood:anxious Affect: anxious SI: denies HI: none Insight/judgment: impaired x 2. memory/cog: alert, oriented to hospital and situation, Diagnostics Vital Signs (24Hr): Vital Signs - 24 hr 09/11/23 19:30 09/11/23 22:00 09/12/23 08:52 Temperature 96.5 F L 96.5 F L 97.5 F Pulse Rate 66 66 95 Respiratory Rate 18 16 18 Blood Pressure 146/64 H 146/64 H 115/57 L Pulse Oximetry 93 93 97 Oxygen Delivery Method Room Air Room Air Room Air BMI result Body Mass Index 16.6 Labs 08/24/23 19:55 08/29/23 07:48 Labs: Laboratory Results - last 48 hr 09/11/23 15:32 COVID-19 ([facility]) Positive A COVID-19 Clin Com See Note Imaging Radiology Impressions: ITS Impressions Head CT 08/24/23 20:20 IMPRESSION: No acute intracranial pathology. Chest X-Ray 08/25/23 02:00 IMPRESSION: Mild diffuse increased markings suspected to be chronic. No focal lung consolidation or pleural effusion Chest X-Ray 09/04/23 19:06 IMPRESSION: Hyperinflated lungs with no acute consolidation. Mild focal haziness in both upper lobes question postsurgical changes. Correlate clinically. Small 3 mm nodule right midlung. Ankle X-Ray 09/05/23 13:55 IMPRESSION: 1. Subtle nondisplaced fractures of the left medial and lateral malleoli with marked surrounding soft tissue swelling. 2. No acute fracture or malalignment at the pelvis, left hip, and left knee. 3. Minimal osteoarthritis in the left knee. 4. Degenerative disc disease in the lower lumbar spine. 5. Osteopenia. Hip/Pelvis X-Ray 09/05/23 13:55 IMPRESSION: 1. Subtle nondisplaced fractures of the left medial and lateral malleoli with marked surrounding soft tissue swelling. 2. No acute fracture or malalignment at the pelvis, left hip, and left knee. 3. Minimal osteoarthritis in the left knee. 4. Degenerative disc disease in the lower lumbar spine. 5. Osteopenia. Knee X-Ray 09/05/23 13:55 IMPRESSION: 1. Subtle nondisplaced fractures of the left medial and lateral malleoli with marked surrounding soft tissue swelling. 2. No acute fracture or malalignment at the pelvis, left hip, and left knee. 3. Minimal osteoarthritis in the left knee. 4. Degenerative disc disease in the lower lumbar spine. 5. Osteopenia. Head CT 09/05/23 14:03 IMPRESSION: No acute intracranial process seen. . Medications Medications Current Medications Acetaminophen (Acetaminophen 325 Mg Tablet) 650 mg PO TID [facility] Last Admin: 09/12/23 08:57 Dose: 650 mg Al Hydroxide/Mg Hydroxide (Magnesium Hydrox/Alum Hydrox 30 Ml Oral.Susp) 30 ml PO Q6H PRN PRN Reason: Heartburn/Nausea Last Admin: 09/03/23 11:52 Dose: 30 ml Albuterol/Ipratropium (Albuterol/Iprat 2.5/0.5mg 3 Ml Ampul.Neb) 3 ml INHALE RQ4H WHILE AWAKE PRN PRN Reason: Shortness of Breath/Wheezing Aspirin (Aspirin Enteric Coated 81 Mg Tablet.Dr) 81 mg PO DAILY [facility] Last Admin: 09/12/23 08:56 Dose: 81 mg Atorvastatin Calcium (Atorvastatin Calcium 40 Mg Tablet) 40 mg PO DAILY [facility] Last Admin: 09/12/23 08:56 Dose: 40 mg Diazepam (Diazepam 2 Mg Tablet) 2.5 mg PO TID PRN PRN Reason: Anxiety Last Admin: 09/11/23 23:30 Dose: 2.5 mg Dicyclomine HCl (Dicyclomine Hcl 10 Mg Capsule) 20 mg PO TID [facility] Last Admin: 09/12/23 08:56 Dose: 20 mg Diphenhydramine HCl (Diphenhydramine Hcl 25 Mg Capsule) 25 mg PO Q6H PRN PRN Reason: Cold Symptoms Last Admin: 09/04/23 04:08 Dose: 25 mg Fluticasone Propionate (Fluticasone Propionate Nasal 16 Gm [place]) 1 spray NOSTRIL-B DAILY [facility] Last Admin: 09/11/23 09:55 Dose: 1 spray Guaifenesin (Guaifenesin 200 Mg/10 Ml 10 Ml Liquid) 10 ml PO Q4H PRN PRN Reason: Cough Guaifenesin/Dextromethorphan (Guaifenesin Dm 600/30 1 Tab Tab.Er.12h) 1 tab PO BID [facility] Last Admin: 09/12/23 08:58 Dose: 1 tab Levothyroxine Sodium (Levothyroxine Sodium 100 Mcg Tablet) 100 mcg PO DAILY@0600 [facility] Last Admin: 09/12/23 05:30 Dose: 100 mcg Lidocaine (Lidocaine 4 % Patch Adh..Patch) 1 patch TRANSDERMA DAILY [facility]; Protocol Last Admin: 09/12/23 08:58 Dose: 1 patch Loperamide HCl (Loperamide Hcl 2 Mg Capsule) 2 mg PO Q4H PRN PRN Reason: Diarrhea Last Admin: 09/09/23 09:11 Dose: 2 mg Magnesium Hydroxide (Milk Of Magnesia 30 Ml Oral.Susp) 30 ml PO DAILY PRN PRN Reason: Constipation Metoprolol Tartrate (Metoprolol Tartrate 12.5 Mg Halftab) 12.5 mg PO BID [facility]; Protocol Last Admin: 09/12/23 08:57 Dose: 12.5 mg Pt Own (Albuterol (Sulfate 2 Mg Tablet)) 2 mg PO QID PRN PRN Reason: Shortness Of Breath Or Wheezing Last Admin: 09/08/23 09:33 Dose: 2 mg Omeprazole (Omeprazole 40 Mg Capsule.Dr) 40 mg PO BID@0630,1630 [facility] Last Admin: 09/12/23 05:30 Dose: 40 mg Ondansetron HCl (Ondansetron Odt 4 Mg Tab.Rapdis) 4 mg TRANSLINGU Q6H PRN PRN Reason: Nausea and Vomiting Last Admin: 09/07/23 06:32 Dose: 4 mg Oxycodone HCl (Oxycodone Hcl Immed Release 5 Mg Tablet) 10 mg PO Q6H PRN PRN Reason: Pain, Severe (Pain Scale 7-10) Last Admin: 09/11/23 23:29 Dose: 10 mg Risperidone (Risperidone 1 Mg Tablet) 1 mg PO BID [facility] Last Admin: 09/12/23 08:56 Dose: 1 mg Senna/Docusate Sodium (Sennosides/Docusate Sodium Tablet) 1 tab PO BID [facility] Last Admin: 09/12/23 08:57 Dose: Not Given Simethicone (Simethicone 80 Mg Tab.Chew) 80 mg PO QIDWMHS PRN PRN Reason: bloating Last Admin: 08/31/23 15:34 Dose: 80 mg Sodium Chloride (Sodium Chloride 0.65 % Nasal 44 Ml Sprbtl) 1 spray NOSTRIL-B Q1H PRN PRN Reason: congestion/pnd Trazodone HCl (Trazodone Hcl 50 Mg Tablet) 50 mg PO BEDTIME PRN PRN Reason: Insomnia Last Admin: 09/10/23 20:25 Dose: 50 mg Valacyclovir HCl (Valacyclovir Hcl 500 Mg Tablet) 500 mg PO DAILY [facility] Last Admin: 09/12/23 08:55 Dose: 500 mg Allergies Allergies Allergy/AdvReac Type Severity Reaction Status Date / Time cefaclor [From Ceclor] Allergy Anaphylaxis Verified 08/19/23 16:33 codeine Allergy Vomiting Verified 08/26/23 14:28 doxycycline Allergy Unknown Verified 08/26/23 14:28 fish derived [fish] Allergy Unknown Verified 08/26/23 14:26 hydroxychloroquine Allergy Unknown Verified 08/26/23 14:28 levofloxacin [From Levaquin] Allergy Unknown Verified 08/26/23 14:28 peanut Allergy Unknown Verified 08/26/23 14:28 Sulfa (Sulfonamide Allergy Unknown Verified 08/26/23 14:26 Antibiotics) Assessment & Plan Assessment & Plan (1) Delusional disorder, persecutory type: Status: Acute Code(s): F22 - Delusional disorders Plan 09/11 continue tx. feeling better from covid. will retest to see if still needs isolation. 09/12 continue tx. PT eval Reason for continued inpatient stay Substantial Risk for: inability to function Time Spent With Patient Time: Total time managing care of this patient today ____ minutes.
[2023-09-12] MEDS: Fluticasone Propionate Nasal 16 GM SPRAY 1 SPRAY NOSTRIL-B (09:38)
[2023-09-12] MEDS: oxyCODONE HCl Immed Release 5 MG TABLET 10 MG PO ×2 (09:38→18:32)
[2023-09-12 13:41] VITALS: BMI 18.9
[2023-09-12] MEDS: guaiFENesin 200 MG/10 ML 10 ML LIQUID PO (16:20)
[2023-09-12] MEDS: diazePAM 2 MG TABLET 2.5 MG PO (20:33)
[2023-09-12 22:00] VITALS: BP 134/68; PULSE 74; RESP 18; TEMP 36.8; O2SAT 94
[2023-09-13] MEDS: oxyCODONE HCl Immed Release 5 MG TABLET 10 MG PO ×4 (00:12→18:55)
[2023-09-13] MEDS: Magnesium Hydrox/Alum Hydrox 30 ML ORAL.SUSP PO (05:44)
[2023-09-13] MEDS: Omeprazole 40 MG CAPSULE.DR PO ×2 (05:44→17:20)
[2023-09-13] MEDS: Levothyroxine Sodium 100 MCG TABLET PO (05:44)
[2023-09-13 08:50] VITALS: BP 149/66; PULSE 92; RESP 16; TEMP 36.6; O2SAT 95
[2023-09-13] MEDS: Aspirin Enteric Coated 81 MG TABLET.DR PO (08:53)
[2023-09-13] MEDS: valACYclovir HCL 500 MG TABLET PO (08:53)
[2023-09-13] MEDS: Acetaminophen 325 MG TABLET 650 MG PO ×3 (08:54→21:13)
[2023-09-13] MEDS: guaiFENesin DM 600/30 1 TAB TAB.ER.12H PO ×2 (08:54→21:14)
[2023-09-13] MEDS: risperiDONE 1 MG TABLET PO ×2 (08:54→21:15)
[2023-09-13] MEDS: Atorvastatin Calcium 40 MG TABLET PO (08:54)
[2023-09-13] MEDS: Metoprolol Tartrate 12.5 MG HALFTAB PO ×2 (08:54→21:15)
[2023-09-13] MEDS: Dicyclomine HCl 10 MG CAPSULE 20 MG PO ×3 (08:55→21:14)
[2023-09-13] MEDS: Sennosides/Docusate Sodium TABLET 1 TAB PO ×2 (08:55→21:13)
[2023-09-13] MEDS: Fluticasone Propionate Nasal 16 GM SPRAY 1 SPRAY NOSTRIL-B (09:27)
[2023-09-13] MEDS: Lidocaine 4 % Patch ADH..PATCH 1 PATCH TRANSDERMA (09:28)
--- NOTE | 2023-09-13 09:47 | HO.PSYCHPN ---
Subjective Subjective Date of Service: 09/13/23 Reason For Visit: delusions Subjective Notes: Conditional Voluntary Interim History: Pt continues to present with positive outlook. She was dancing in bed while hearing some music. She reports pain is better, and well controlled for now. She denies SI/HI. No overt delusional content pt much more brighter and much less anxious about paranoid delusions. she is sleeping through the night. stable. Diagnostics Vital Signs (24Hr): Vital Signs - 24 hr 09/12/23 22:00 09/13/23 08:50 Temperature 98.2 F 97.9 F Pulse Rate 74 92 Respiratory Rate 18 16 Blood Pressure 134/68 149/66 H Pulse Oximetry 94 95 Oxygen Delivery Method Room Air Room Air BMI result Body Mass Index 18.9 Labs 08/24/23 19:55 08/29/23 07:48 Labs: Laboratory Results - last 48 hr 09/11/23 15:32 COVID-19 ([facility]) Positive A COVID-19 Clin Com See Note Imaging Radiology Impressions: ITS Impressions Head CT 08/24/23 20:20 IMPRESSION: No acute intracranial pathology. Chest X-Ray 08/25/23 02:00 IMPRESSION: Mild diffuse increased markings suspected to be chronic. No focal lung consolidation or pleural effusion Chest X-Ray 09/04/23 19:06 IMPRESSION: Hyperinflated lungs with no acute consolidation. Mild focal haziness in both upper lobes question postsurgical changes. Correlate clinically. Small 3 mm nodule right midlung. Ankle X-Ray 09/05/23 13:55 IMPRESSION: 1. Subtle nondisplaced fractures of the left medial and lateral malleoli with marked surrounding soft tissue swelling. 2. No acute fracture or malalignment at the pelvis, left hip, and left knee. 3. Minimal osteoarthritis in the left knee. 4. Degenerative disc disease in the lower lumbar spine. 5. Osteopenia. Hip/Pelvis X-Ray 09/05/23 13:55 IMPRESSION: 1. Subtle nondisplaced fractures of the left medial and lateral malleoli with marked surrounding soft tissue swelling. 2. No acute fracture or malalignment at the pelvis, left hip, and left knee. 3. Minimal osteoarthritis in the left knee. 4. Degenerative disc disease in the lower lumbar spine. 5. Osteopenia. Knee X-Ray 09/05/23 13:55 IMPRESSION: 1. Subtle nondisplaced fractures of the left medial and lateral malleoli with marked surrounding soft tissue swelling. 2. No acute fracture or malalignment at the pelvis, left hip, and left knee. 3. Minimal osteoarthritis in the left knee. 4. Degenerative disc disease in the lower lumbar spine. 5. Osteopenia. Head CT 09/05/23 14:03 IMPRESSION: No acute intracranial process seen. . Medications Medications Current Medications Acetaminophen (Acetaminophen 325 Mg Tablet) 650 mg PO TID [facility] Last Admin: 09/13/23 08:54 Dose: 650 mg Al Hydroxide/Mg Hydroxide (Magnesium Hydrox/Alum Hydrox 30 Ml Oral.Susp) 30 ml PO Q6H PRN PRN Reason: Heartburn/Nausea Last Admin: 09/13/23 05:44 Dose: 30 ml Albuterol/Ipratropium (Albuterol/Iprat 2.5/0.5mg 3 Ml Ampul.Neb) 3 ml INHALE RQ4H WHILE AWAKE PRN PRN Reason: Shortness of Breath/Wheezing Aspirin (Aspirin Enteric Coated 81 Mg Tablet.Dr) 81 mg PO DAILY [facility] Last Admin: 09/13/23 08:53 Dose: 81 mg Atorvastatin Calcium (Atorvastatin Calcium 40 Mg Tablet) 40 mg PO DAILY [facility] Last Admin: 09/13/23 08:54 Dose: 40 mg Diazepam (Diazepam 2 Mg Tablet) 2.5 mg PO TID PRN PRN Reason: Anxiety Last Admin: 09/12/23 20:33 Dose: 2.5 mg Dicyclomine HCl (Dicyclomine Hcl 10 Mg Capsule) 20 mg PO TID [facility] Last Admin: 09/13/23 08:55 Dose: 20 mg Diphenhydramine HCl (Diphenhydramine Hcl 25 Mg Capsule) 25 mg PO Q6H PRN PRN Reason: Cold Symptoms Last Admin: 09/04/23 04:08 Dose: 25 mg Fluticasone Propionate (Fluticasone Propionate Nasal 16 Gm [place]) 1 spray NOSTRIL-B DAILY [facility] Last Admin: 09/13/23 09:27 Dose: 1 spray Guaifenesin (Guaifenesin 200 Mg/10 Ml 10 Ml Liquid) 10 ml PO Q4H PRN PRN Reason: Cough Last Admin: 09/12/23 16:20 Dose: 10 ml Guaifenesin/Dextromethorphan (Guaifenesin Dm 600/30 1 Tab Tab.Er.12h) 1 tab PO BID [facility] Last Admin: 09/13/23 08:54 Dose: 1 tab Levothyroxine Sodium (Levothyroxine Sodium 100 Mcg Tablet) 100 mcg PO DAILY@0600 [facility] Last Admin: 09/13/23 05:44 Dose: 100 mcg Lidocaine (Lidocaine 4 % Patch Adh..Patch) 1 patch TRANSDERMA DAILY [facility]; Protocol Last Admin: 09/13/23 09:28 Dose: 1 patch Loperamide HCl (Loperamide Hcl 2 Mg Capsule) 2 mg PO Q4H PRN PRN Reason: Diarrhea Last Admin: 09/09/23 09:11 Dose: 2 mg Magnesium Hydroxide (Milk Of Magnesia 30 Ml Oral.Susp) 30 ml PO DAILY PRN PRN Reason: Constipation Metoprolol Tartrate (Metoprolol Tartrate 12.5 Mg Halftab) 12.5 mg PO BID [facility]; Protocol Last Admin: 09/13/23 08:54 Dose: 12.5 mg Pt Own (Albuterol (Sulfate 2 Mg Tablet)) 2 mg PO QID PRN PRN Reason: Shortness Of Breath Or Wheezing Last Admin: 09/08/23 09:33 Dose: 2 mg Omeprazole (Omeprazole 40 Mg Capsule.Dr) 40 mg PO BID@0630,1630 [facility] Last Admin: 09/13/23 05:44 Dose: 40 mg Ondansetron HCl (Ondansetron Odt 4 Mg Tab.Rapdis) 4 mg TRANSLINGU Q6H PRN PRN Reason: Nausea and Vomiting Last Admin: 09/07/23 06:32 Dose: 4 mg Oxycodone HCl (Oxycodone Hcl Immed Release 5 Mg Tablet) 10 mg PO Q6H PRN PRN Reason: Pain, Severe (Pain Scale 7-10) Last Admin: 09/13/23 05:44 Dose: 10 mg Risperidone (Risperidone 1 Mg Tablet) 1 mg PO BID [facility] Last Admin: 09/13/23 08:54 Dose: 1 mg Senna/Docusate Sodium (Sennosides/Docusate Sodium Tablet) 1 tab PO BID [facility] Last Admin: 09/13/23 08:55 Dose: 1 tab Simethicone (Simethicone 80 Mg Tab.Chew) 80 mg PO QIDWMHS PRN PRN Reason: bloating Last Admin: 08/31/23 15:34 Dose: 80 mg Sodium Chloride (Sodium Chloride 0.65 % Nasal 44 Ml Sprbtl) 1 spray NOSTRIL-B Q1H PRN PRN Reason: congestion/pnd Trazodone HCl (Trazodone Hcl 50 Mg Tablet) 50 mg PO BEDTIME PRN PRN Reason: Insomnia Last Admin: 09/10/23 20:25 Dose: 50 mg Valacyclovir HCl (Valacyclovir Hcl 500 Mg Tablet) 500 mg PO DAILY [facility] Last Admin: 09/13/23 08:53 Dose: 500 mg Allergies Allergies Allergy/AdvReac Type Severity Reaction Status Date / Time cefaclor [From Ceclor] Allergy Anaphylaxis Verified 08/19/23 16:33 codeine Allergy Vomiting Verified 08/26/23 14:28 doxycycline Allergy Unknown Verified 08/26/23 14:28 fish derived [fish] Allergy Unknown Verified 08/26/23 14:26 hydroxychloroquine Allergy Unknown Verified 08/26/23 14:28 levofloxacin [From Levaquin] Allergy Unknown Verified 08/26/23 14:28 peanut Allergy Unknown Verified 08/26/23 14:28 Sulfa (Sulfonamide Allergy Unknown Verified 08/26/23 14:26 Antibiotics) Assessment & Plan Assessment & Plan (1) Delusional disorder, persecutory type: Status: Acute Code(s): F22 - Delusional disorders Plan 09/11 continue tx. feeling better from covid. will retest to see if still needs isolation. 09/12 continue tx. PT eval 09/13 stable,awaiting PT eval and dispo to [facility] home if no recommendation to do short term rehab Reason for continued inpatient stay Substantial Risk for: inability to function Time Spent With Patient Time: Total time managing care of this patient today ____ minutes.
[2023-09-13 10:38] VITALS: BP 149/66; PULSE 92; O2SAT 95
[2023-09-13] MEDS: Loperamide HCl 2 MG CAPSULE PO (14:15)
[2023-09-13] MEDS: guaiFENesin 200 MG/10 ML 10 ML LIQUID PO (14:17)
[2023-09-13] MEDS: diazePAM 2 MG TABLET 2.5 MG PO (21:16)
[2023-09-13 21:49] VITALS: BP 146/61; PULSE 96; RESP 16; TEMP 36; O2SAT 92
[2023-09-14] MEDS: oxyCODONE HCl Immed Release 5 MG TABLET 10 MG PO ×3 (04:34→18:46)
[2023-09-14] MEDS: guaiFENesin 200 MG/10 ML 10 ML LIQUID PO ×2 (04:34→20:27)
[2023-09-14] MEDS: Omeprazole 40 MG CAPSULE.DR PO ×2 (06:25→16:45)
[2023-09-14] MEDS: Levothyroxine Sodium 100 MCG TABLET PO (06:25)
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
[2023-09-14 08:00] VITALS: BP 124/62; PULSE 89; RESP 18; TEMP 37.1; O2SAT 93
[2023-09-14] MEDS: Aspirin Enteric Coated 81 MG TABLET.DR PO (08:41)
[2023-09-14] MEDS: Acetaminophen 325 MG TABLET 650 MG PO ×3 (08:42→20:29)
[2023-09-14] MEDS: valACYclovir HCL 500 MG TABLET PO (08:42)
[2023-09-14] MEDS: guaiFENesin DM 600/30 1 TAB TAB.ER.12H PO ×2 (08:42→20:27)
[2023-09-14] MEDS: Sennosides/Docusate Sodium TABLET 1 TAB PO (08:42)
[2023-09-14] MEDS: risperiDONE 1 MG TABLET PO ×2 (08:42→20:30)
[2023-09-14] MEDS: Atorvastatin Calcium 40 MG TABLET PO (08:42)
[2023-09-14] MEDS: Metoprolol Tartrate 12.5 MG HALFTAB PO ×2 (08:42→20:28)
[2023-09-14] MEDS: Dicyclomine HCl 10 MG CAPSULE 20 MG PO ×3 (08:42→20:29)
[2023-09-14] MEDS: Lidocaine 4 % Patch ADH..PATCH 1 PATCH TRANSDERMA (08:45)
[2023-09-14] MEDS: Fluticasone Propionate Nasal 16 GM SPRAY 1 SPRAY NOSTRIL-B (08:46)
[2023-09-14] MEDS: diazePAM 2 MG TABLET 2.5 MG PO (20:27)
[2023-09-14 22:00] VITALS: BP 111/65; PULSE 87; RESP 18; TEMP 36.6; O2SAT 94
[2023-09-15] MEDS: oxyCODONE HCl Immed Release 5 MG TABLET 10 MG PO ×3 (02:10→18:50)
[2023-09-15] MEDS: Omeprazole 40 MG CAPSULE.DR PO ×2 (06:07→16:19)
[2023-09-15] MEDS: Levothyroxine Sodium 100 MCG TABLET PO (06:07)
[2023-09-15 08:10] VITALS: BP 130/60; PULSE 98; RESP 18; TEMP 36.9; O2SAT 93
[2023-09-15] MEDS: Dicyclomine HCl 10 MG CAPSULE 20 MG PO ×3 (08:34→20:40)
[2023-09-15] MEDS: Aspirin Enteric Coated 81 MG TABLET.DR PO (08:34)
[2023-09-15] MEDS: Atorvastatin Calcium 40 MG TABLET PO (08:34)
[2023-09-15] MEDS: Fluticasone Propionate Nasal 16 GM SPRAY 1 SPRAY NOSTRIL-B (08:34)
[2023-09-15] MEDS: guaiFENesin DM 600/30 1 TAB TAB.ER.12H PO ×2 (08:34→20:39)
[2023-09-15] MEDS: valACYclovir HCL 500 MG TABLET PO (08:34)
[2023-09-15] MEDS: Metoprolol Tartrate 12.5 MG HALFTAB PO ×2 (08:34→20:39)
[2023-09-15] MEDS: risperiDONE 1 MG TABLET PO ×2 (08:35→20:39)
[2023-09-15] MEDS: Sennosides/Docusate Sodium TABLET 1 TAB PO (08:35)
[2023-09-15] MEDS: Acetaminophen 325 MG TABLET 650 MG PO ×3 (08:35→20:40)
[2023-09-15] MEDS: Lidocaine 4 % Patch ADH..PATCH 1 PATCH TRANSDERMA (08:38)
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
[2023-09-15 17:20] VITALS: BP 118/54; PULSE 89; RESP 16; TEMP 37.2; O2SAT 94
[2023-09-15] MEDS: guaiFENesin 200 MG/10 ML 10 ML LIQUID PO (18:46)
[2023-09-15 22:00] VITALS: BP 124/84; PULSE 64; RESP 18; TEMP 36.6; O2SAT 95
[2023-09-16] MEDS: oxyCODONE HCl Immed Release 5 MG TABLET 10 MG PO ×3 (02:41→20:56)
[2023-09-16] MEDS: Levothyroxine Sodium 100 MCG TABLET PO (05:46)
[2023-09-16] MEDS: Omeprazole 40 MG CAPSULE.DR PO ×2 (05:46→16:24)
[2023-09-16 08:00] VITALS: BP 134/61; PULSE 86; RESP 18; TEMP 37; O2SAT 94
[2023-09-16] MEDS: guaiFENesin DM 600/30 1 TAB TAB.ER.12H PO ×2 (08:25→20:59)
[2023-09-16] MEDS: Aspirin Enteric Coated 81 MG TABLET.DR PO (08:25)
[2023-09-16] MEDS: Fluticasone Propionate Nasal 16 GM SPRAY 1 SPRAY NOSTRIL-B (08:25)
[2023-09-16] MEDS: Metoprolol Tartrate 12.5 MG HALFTAB PO ×2 (08:25→20:59)
[2023-09-16] MEDS: Lidocaine 4 % Patch ADH..PATCH 1 PATCH TRANSDERMA (08:25)
[2023-09-16] MEDS: Dicyclomine HCl 10 MG CAPSULE 20 MG PO ×3 (08:26→20:56)
[2023-09-16] MEDS: Acetaminophen 325 MG TABLET 650 MG PO ×3 (08:26→20:58)
[2023-09-16] MEDS: valACYclovir HCL 500 MG TABLET PO (08:26)
[2023-09-16] MEDS: risperiDONE 1 MG TABLET PO ×2 (08:26→20:59)
[2023-09-16] MEDS: Atorvastatin Calcium 40 MG TABLET PO (08:26)
--- NOTE | 2023-09-16 10:53 | HO.PSYCHPN ---
Subjective Subjective Date of Service: 09/16/23 Reason For Visit: delusions Subjective Notes: Conditional Voluntary Medical Problems Affecting Mental Status: Yes (opiate and benzodiazepine dependence?) Interim History: 72 yo MWF with years of hx of opiate/oxy prescriptions and benzodiazepines- seemingly notaddressed in past reports doing well psycholologically here - focused on pain - recent fall here with xs bruised /fx ankle Pt does not seem to have noticed dec frequency of oxy- and I am lowering prn diazepam from 2.5mg tid to 2mg tid today=-= (she has had benzo rx it just fell off renewals yesterday so I didn't notice it) Medication Compliance: Yes Side effects from medications: Yes (fatigue after oxy-but pt doesn't complain ) Attending Groups: No Review of Systems Acute medical concerns: No Medical Review of Systems: unchanged Mental Status Exam Mental Status Exam Patient Appearance: Well Grooomed and Appropriate Patient Orientation: Person, Place and Situation Level of Consciousness: Awake and Alert Patient Behavior: Appropriate and Good Eye Contact Mood Description: Cheerful Affect Description: Happy Patient Cognition Impaired: No Ability to Follow Directions: Good Speech Pattern: Clear Hallucinations: None Thought Process: Intact and Goal Oriented Thought Content: positive for Perseveration (on body pain) Judgement: Fair Diagnostics Vital Signs (24Hr): Vital Signs - 24 hr 09/15/23 17:20 09/15/23 22:00 09/16/23 08:00 Temperature 99.0 F 97.8 F 98.6 F Pulse Rate 89 64 86 Respiratory Rate 16 18 18 Blood Pressure 118/54 L 124/84 134/61 Pulse Oximetry 94 95 94 Oxygen Delivery Method Room Air Room Air Room Air BMI result Body Mass Index 18.9 Labs 08/24/23 19:55 08/29/23 07:48 Imaging Radiology Impressions: ITS Impressions Head CT 08/24/23 20:20 IMPRESSION: No acute intracranial pathology. Chest X-Ray 08/25/23 02:00 IMPRESSION: Mild diffuse increased markings suspected to be chronic. No focal lung consolidation or pleural effusion Chest X-Ray 09/04/23 19:06 IMPRESSION: Hyperinflated lungs with no acute consolidation. Mild focal haziness in both upper lobes question postsurgical changes. Correlate clinically. Small 3 mm nodule right midlung. Ankle X-Ray 09/05/23 13:55 IMPRESSION: 1. Subtle nondisplaced fractures of the left medial and lateral malleoli with marked surrounding soft tissue swelling. 2. No acute fracture or malalignment at the pelvis, left hip, and left knee. 3. Minimal osteoarthritis in the left knee. 4. Degenerative disc disease in the lower lumbar spine. 5. Osteopenia. Hip/Pelvis X-Ray 09/05/23 13:55 IMPRESSION: 1. Subtle nondisplaced fractures of the left medial and lateral malleoli with marked surrounding soft tissue swelling. 2. No acute fracture or malalignment at the pelvis, left hip, and left knee. 3. Minimal osteoarthritis in the left knee. 4. Degenerative disc disease in the lower lumbar spine. 5. Osteopenia. Knee X-Ray 09/05/23 13:55 IMPRESSION: 1. Subtle nondisplaced fractures of the left medial and lateral malleoli with marked surrounding soft tissue swelling. 2. No acute fracture or malalignment at the pelvis, left hip, and left knee. 3. Minimal osteoarthritis in the left knee. 4. Degenerative disc disease in the lower lumbar spine. 5. Osteopenia. Head CT 09/05/23 14:03 IMPRESSION: No acute intracranial process seen. . Medications Medications Current Medications Acetaminophen (Acetaminophen 325 Mg Tablet) 650 mg PO TID [facility] Last Admin: 09/16/23 08:26 Dose: 650 mg Al Hydroxide/Mg Hydroxide (Magnesium Hydrox/Alum Hydrox 30 Ml Oral.Susp) 30 ml PO Q6H PRN PRN Reason: Heartburn/Nausea Last Admin: 09/13/23 05:44 Dose: 30 ml Albuterol/Ipratropium (Albuterol/Iprat 2.5/0.5mg 3 Ml Ampul.Neb) 3 ml INHALE RQ4H WHILE AWAKE PRN PRN Reason: Shortness of Breath/Wheezing Aspirin (Aspirin Enteric Coated 81 Mg Tablet.) 81 mg PO DAILY [facility] Last Admin: 09/16/23 08:25 Dose: 81 mg Atorvastatin Calcium (Atorvastatin Calcium 40 Mg Tablet) 40 mg PO DAILY [facility] Last Admin: 09/16/23 08:26 Dose: 40 mg Dicyclomine HCl (Dicyclomine Hcl 10 Mg Capsule) 20 mg PO TID [facility] Last Admin: 09/16/23 08:26 Dose: 20 mg Diphenhydramine HCl (Diphenhydramine Hcl 25 Mg Capsule) 25 mg PO Q6H PRN PRN Reason: Cold Symptoms Last Admin: 09/04/23 04:08 Dose: 25 mg Fluticasone Propionate (Fluticasone Propionate Nasal 16 Gm [place]) 1 spray NOSTRIL-B DAILY [facility] Last Admin: 09/16/23 08:25 Dose: 1 spray Guaifenesin (Guaifenesin 200 Mg/10 Ml 10 Ml Liquid) 10 ml PO Q4H PRN PRN Reason: Cough Last Admin: 09/15/23 18:46 Dose: 10 ml Guaifenesin/Dextromethorphan (Guaifenesin Dm 600/30 1 Tab Tab.Er.12h) 1 tab PO BID [facility] Last Admin: 09/16/23 08:25 Dose: 1 tab Levothyroxine Sodium (Levothyroxine Sodium 100 Mcg Tablet) 100 mcg PO DAILY@0600 [facility] Last Admin: 09/16/23 05:46 Dose: 100 mcg Lidocaine (Lidocaine 4 % Patch Adh..Patch) 1 patch TRANSDERMA DAILY [facility]; Protocol Last Admin: 09/16/23 08:25 Dose: 1 patch Loperamide HCl (Loperamide Hcl 2 Mg Capsule) 2 mg PO Q4H PRN PRN Reason: Diarrhea Last Admin: 09/13/23 14:15 Dose: 2 mg Magnesium Hydroxide (Milk Of Magnesia 30 Ml Oral.Susp) 30 ml PO DAILY PRN PRN Reason: Constipation Metoprolol Tartrate (Metoprolol Tartrate 12.5 Mg Halftab) 12.5 mg PO BID [facility]; Protocol Last Admin: 09/16/23 08:25 Dose: 12.5 mg Pt Own (Albuterol (Sulfate 2 Mg Tablet)) 2 mg PO QID PRN PRN Reason: Shortness Of Breath Or Wheezing Last Admin: 09/08/23 09:33 Dose: 2 mg Omeprazole (Omeprazole 40 Mg Capsule.Dr) 40 mg PO BID@0630,1630 [facility] Last Admin: 09/16/23 05:46 Dose: 40 mg Ondansetron HCl (Ondansetron Odt 4 Mg Tab.Rapdis) 4 mg TRANSLINGU Q6H PRN PRN Reason: Nausea and Vomiting Last Admin: 09/07/23 06:32 Dose: 4 mg Oxycodone HCl (Oxycodone Hcl Immed Release 5 Mg Tablet) 10 mg PO Q8H PRN PRN Reason: Pain, Severe (Pain Scale 7-10) Last Admin: 09/16/23 02:41 Dose: 10 mg Risperidone (Risperidone 1 Mg Tablet) 1 mg PO BID [facility] Last Admin: 09/16/23 08:26 Dose: 1 mg Senna/Docusate Sodium (Sennosides/Docusate Sodium Tablet) 1 tab PO BID [facility] Last Admin: 09/16/23 08:29 Dose: Not Given Simethicone (Simethicone 80 Mg Tab.Chew) 80 mg PO QIDWMHS PRN PRN Reason: bloating Last Admin: 08/31/23 15:34 Dose: 80 mg Sodium Chloride (Sodium Chloride 0.65 % Nasal 44 Ml Sprbtl) 1 spray NOSTRIL-B Q1H PRN PRN Reason: congestion/pnd Trazodone HCl (Trazodone Hcl 50 Mg Tablet) 50 mg PO BEDTIME PRN PRN Reason: Insomnia Last Admin: 09/10/23 20:25 Dose: 50 mg Valacyclovir HCl (Valacyclovir Hcl 500 Mg Tablet) 500 mg PO DAILY [facility] Last Admin: 09/16/23 08:26 Dose: 500 mg Allergies Allergies Allergy/AdvReac Type Severity Reaction Status Date / Time cefaclor [From Ceclor] Allergy Anaphylaxis Verified 08/19/23 16:33 codeine Allergy Vomiting Verified 08/26/23 14:28 doxycycline Allergy Unknown Verified 08/26/23 14:28 fish derived [fish] Allergy Unknown Verified 08/26/23 14:26 hydroxychloroquine Allergy Unknown Verified 08/26/23 14:28 levofloxacin [From Levaquin] Allergy Unknown Verified 08/26/23 14:28 peanut Allergy Unknown Verified 08/26/23 14:28 Sulfa (Sulfonamide Allergy Unknown Verified 08/26/23 14:26 Antibiotics) Assessment & Plan Assessment & Plan (1) Delusional disorder, persecutory type: Status: Acute Code(s): F22 - Delusional disorders Assessment and Plan: 09/16/23 was no table to elicit today Plan 09/11 continue tx. feeling better from covid. will retest to see if still needs isolation. 09/12 continue tx. PT eval 09/13 stable,awaiting PT eval and dispo to co home if no recommendation to do short term rehab 09/15/- CTP except consult with addiction medicine about ongoing oxy use for years ? alternatives- now iatrogenic dependence= looked up digital account supervisor dr hurd rxed 180 15mg oxycodone 07/24 for 30 days- supply- 14 day supply of 84 on day 08/23 for 14 day also there are various rxs of benzodiazepines- this combo goes back years. 09/16/23 - does have prn diazepam 2.5mg tid prn will dec to 2mg tid prn today- pt has not noticed dec of oxy to q 8 hrs intead of q 6hrs. Patient educated on: medication risk/benefits Informed Consent: further education needed Reason for continued inpatient stay Substantial Risk for: rapid decompensation and med/psych decompensation Time Spent With Patient Time: Total time managing care of this patient today ____ minutes.
[2023-09-16] MEDS: traZODone HCL 50 MG TABLET PO (20:57)
[2023-09-16] MEDS: Sennosides/Docusate Sodium TABLET 1 TAB PO (20:58)
[2023-09-16 22:00] VITALS: BP 139/59; PULSE 85; RESP 16; TEMP 36.4; O2SAT 93
[2023-09-17] MEDS: Omeprazole 40 MG CAPSULE.DR PO ×2 (05:51→16:54)
[2023-09-17] MEDS: Levothyroxine Sodium 100 MCG TABLET PO (05:51)
[2023-09-17] MEDS: oxyCODONE HCl Immed Release 5 MG TABLET 10 MG PO ×2 (06:01→14:09)
[2023-09-17] MEDS: diazePAM 2 MG TABLET PO ×2 (06:02→21:37)
[2023-09-17] MEDS: guaiFENesin 200 MG/10 ML 10 ML LIQUID PO (06:02)
[2023-09-17 08:10] VITALS: BP 151/69; PULSE 102; RESP 18; TEMP 36.8; O2SAT 98
[2023-09-17] MEDS: Acetaminophen 325 MG TABLET 650 MG PO ×3 (08:51→21:36)
[2023-09-17] MEDS: Fluticasone Propionate Nasal 16 GM SPRAY 1 SPRAY NOSTRIL-B (08:51)
[2023-09-17] MEDS: Dicyclomine HCl 10 MG CAPSULE 20 MG PO ×3 (08:51→21:35)
[2023-09-17] MEDS: Metoprolol Tartrate 12.5 MG HALFTAB PO ×2 (08:52→21:37)
[2023-09-17] MEDS: Atorvastatin Calcium 40 MG TABLET PO (08:52)
[2023-09-17] MEDS: valACYclovir HCL 500 MG TABLET PO (08:52)
[2023-09-17] MEDS: Sennosides/Docusate Sodium TABLET 1 TAB PO ×2 (08:53→21:36)
[2023-09-17] MEDS: guaiFENesin DM 600/30 1 TAB TAB.ER.12H PO ×2 (08:53→21:38)
[2023-09-17] MEDS: risperiDONE 1 MG TABLET PO ×2 (08:53→21:37)
[2023-09-17] MEDS: Aspirin Enteric Coated 81 MG TABLET.DR PO (08:54)
[2023-09-17] MEDS: Lidocaine 4 % Patch ADH..PATCH 1 PATCH TRANSDERMA (08:57)
--- NOTE | 2023-09-17 10:09 | P.PNPSI_ITS ---
Subjective Subjective Date of Service: 09/17/23 Reason For Visit: delusions Subjective Notes: Conditional Voluntary Interim History: Pt slept most of the night. She reports feeling better in terms of covid symptoms; afebrile, no SOB. stable o2sat >97% on RA. Pt reports neck pain- which is chronic. She denies SI/HI . pt was evaluated by PT- who recommeds short term rehab. No behavioral concerns. Review of Systems Review of Systems per hpi Yes all other systems are reviewed and are negative Mental Status Exam Mental Status Exam Patient Appearance: Well Grooomed and Appropriate Patient Orientation: Person, Place and Situation Level of Consciousness: Awake and Alert Patient Behavior: Appropriate and Good Eye Contact Mood Description: Cheerful Affect Description: Happy Patient Cognition Impaired: No Ability to Follow Directions: Good Speech Pattern: Clear Diagnostics Vital Signs (24Hr): Vital Signs - 24 hr 09/16/23 22:00 09/17/23 08:10 Temperature 97.6 F 98.2 F Pulse Rate 85 102 H Respiratory Rate 16 18 Blood Pressure 139/59 L 151/69 H Pulse Oximetry 93 98 Oxygen Delivery Method Room Air Room Air BMI result Body Mass Index 18.9 Labs 08/24/23 19:55 08/29/23 07:48 Imaging Radiology Impressions: ITS Impressions Head CT 08/24/23 20:20 IMPRESSION: No acute intracranial pathology. Chest X-Ray 08/25/23 02:00 IMPRESSION: Mild diffuse increased markings suspected to be chronic. No focal lung consolidation or pleural effusion Chest X-Ray 09/04/23 19:06 IMPRESSION: Hyperinflated lungs with no acute consolidation. Mild focal haziness in both upper lobes question postsurgical changes. Correlate clinically. Small 3 mm nodule right midlung. Ankle X-Ray 09/05/23 13:55 IMPRESSION: 1. Subtle nondisplaced fractures of the left medial and lateral malleoli with marked surrounding soft tissue swelling. 2. No acute fracture or malalignment at the pelvis, left hip, and left knee. 3. Minimal osteoarthritis in the left knee. 4. Degenerative disc disease in the lower lumbar spine. 5. Osteopenia. Hip/Pelvis X-Ray 09/05/23 13:55 IMPRESSION: 1. Subtle nondisplaced fractures of the left medial and lateral malleoli with marked surrounding soft tissue swelling. 2. No acute fracture or malalignment at the pelvis, left hip, and left knee. 3. Minimal osteoarthritis in the left knee. 4. Degenerative disc disease in the lower lumbar spine. 5. Osteopenia. Knee X-Ray 09/05/23 13:55 IMPRESSION: 1. Subtle nondisplaced fractures of the left medial and lateral malleoli with marked surrounding soft tissue swelling. 2. No acute fracture or malalignment at the pelvis, left hip, and left knee. 3. Minimal osteoarthritis in the left knee. 4. Degenerative disc disease in the lower lumbar spine. 5. Osteopenia. Head CT 09/05/23 14:03 IMPRESSION: No acute intracranial process seen. . Medications Medications Current Medications Acetaminophen (Acetaminophen 325 Mg Tablet) 650 mg PO TID [facility] Last Admin: 09/17/23 08:51 Dose: 650 mg Al Hydroxide/Mg Hydroxide (Magnesium Hydrox/Alum Hydrox 30 Ml Oral.Susp) 30 ml PO Q6H PRN PRN Reason: Heartburn/Nausea Last Admin: 09/13/23 05:44 Dose: 30 ml Albuterol/Ipratropium (Albuterol/Iprat 2.5/0.5mg 3 Ml Ampul.Neb) 3 ml INHALE RQ4H WHILE AWAKE PRN PRN Reason: Shortness of Breath/Wheezing Aspirin (Aspirin Enteric Coated 81 Mg Tablet.Dr) 81 mg PO DAILY [facility] Last Admin: 09/17/23 08:54 Dose: 81 mg Atorvastatin Calcium (Atorvastatin Calcium 40 Mg Tablet) 40 mg PO DAILY [facility] Last Admin: 09/17/23 08:52 Dose: 40 mg Diazepam (Diazepam 2 Mg Tablet) 2 mg PO TID PRN PRN Reason: anxiety/restlessness Last Admin: 09/17/23 06:02 Dose: 2 mg Dicyclomine HCl (Dicyclomine Hcl 10 Mg Capsule) 20 mg PO TID [facility] Last Admin: 09/17/23 08:51 Dose: 20 mg Diphenhydramine HCl (Diphenhydramine Hcl 25 Mg Capsule) 25 mg PO Q6H PRN PRN Reason: Cold Symptoms Last Admin: 09/04/23 04:08 Dose: 25 mg Fluticasone Propionate (Fluticasone Propionate Nasal 16 Gm [place]) 1 spray NOSTRIL-B DAILY [facility] Last Admin: 09/17/23 08:51 Dose: 1 spray Guaifenesin (Guaifenesin 200 Mg/10 Ml 10 Ml Liquid) 10 ml PO Q4H PRN PRN Reason: Cough Last Admin: 09/17/23 06:02 Dose: 10 ml Guaifenesin/Dextromethorphan (Guaifenesin Dm 600/30 1 Tab Tab.Er.12h) 1 tab PO BID [facility] Last Admin: 09/17/23 08:53 Dose: 1 tab Levothyroxine Sodium (Levothyroxine Sodium 100 Mcg Tablet) 100 mcg PO DAILY@0600 [facility] Last Admin: 09/17/23 05:51 Dose: 100 mcg Lidocaine (Lidocaine 4 % Patch Adh..Patch) 1 patch TRANSDERMA DAILY [facility]; Protocol Last Admin: 09/17/23 08:57 Dose: 1 patch Loperamide HCl (Loperamide Hcl 2 Mg Capsule) 2 mg PO Q4H PRN PRN Reason: Diarrhea Last Admin: 09/13/23 14:15 Dose: 2 mg Magnesium Hydroxide (Milk Of Magnesia 30 Ml Oral.Susp) 30 ml PO DAILY PRN PRN Reason: Constipation Metoprolol Tartrate (Metoprolol Tartrate 12.5 Mg Halftab) 12.5 mg PO BID [facility]; Protocol Last Admin: 09/17/23 08:52 Dose: 12.5 mg Pt Own (Albuterol (Sulfate 2 Mg Tablet)) 2 mg PO QID PRN PRN Reason: Shortness Of Breath Or Wheezing Last Admin: 09/08/23 09:33 Dose: 2 mg Omeprazole (Omeprazole 40 Mg Capsule.Dr) 40 mg PO BID@0630,1630 [facility] Last Admin: 09/17/23 05:51 Dose: 40 mg Ondansetron HCl (Ondansetron Odt 4 Mg Tab.Rapdis) 4 mg TRANSLINGU Q6H PRN PRN Reason: Nausea and Vomiting Last Admin: 09/07/23 06:32 Dose: 4 mg Oxycodone HCl (Oxycodone Hcl Immed Release 5 Mg Tablet) 10 mg PO Q8H PRN PRN Reason: Pain, Severe (Pain Scale 7-10) Last Admin: 09/17/23 06:01 Dose: 10 mg Risperidone (Risperidone 1 Mg Tablet) 1 mg PO BID [facility] Last Admin: 09/17/23 08:53 Dose: 1 mg Senna/Docusate Sodium (Sennosides/Docusate Sodium Tablet) 1 tab PO BID [facility] Last Admin: 09/17/23 08:53 Dose: 1 tab Simethicone (Simethicone 80 Mg Tab.Chew) 80 mg PO QIDWMHS PRN PRN Reason: bloating Last Admin: 08/31/23 15:34 Dose: 80 mg Sodium Chloride (Sodium Chloride 0.65 % Nasal 44 Ml Sprbtl) 1 spray NOSTRIL-B Q1H PRN PRN Reason: congestion/pnd Trazodone HCl (Trazodone Hcl 50 Mg Tablet) 50 mg PO BEDTIME PRN PRN Reason: Insomnia Last Admin: 09/16/23 20:57 Dose: 50 mg Valacyclovir HCl (Valacyclovir Hcl 500 Mg Tablet) 500 mg PO DAILY [facility] Last Admin: 09/17/23 08:52 Dose: 500 mg Allergies Allergies Allergy/AdvReac Type Severity Reaction Status Date / Time cefaclor [From Ceclor] Allergy Anaphylaxis Verified 08/19/23 16:33 codeine Allergy Vomiting Verified 08/26/23 14:28 doxycycline Allergy Unknown Verified 08/26/23 14:28 fish derived [fish] Allergy Unknown Verified 08/26/23 14:26 hydroxychloroquine Allergy Unknown Verified 08/26/23 14:28 levofloxacin [From Levaquin] Allergy Unknown Verified 08/26/23 14:28 peanut Allergy Unknown Verified 08/26/23 14:28 Sulfa (Sulfonamide Allergy Unknown Verified 08/26/23 14:26 Antibiotics) Assessment & Plan Assessment & Plan (1) Delusional disorder, persecutory type: Status: Acute Code(s): F22 - Delusional disorders Assessment and Plan: 09/16/23 was no table to elicit today Plan 09/11 continue tx. feeling better from covid. will retest to see if still needs isolation. 09/12 continue tx. PT eval 09/13 stable,awaiting PT eval and dispo to pr home if no recommendation to do short term rehab CTP except consult with addiction medicine about ongoing oxy use for years ? alternatives- now iatrogenic dependence= looked up program developer dr hurd rxed 180 15mg oxycodone 07/24 for 30 days- supply- 14 day supply of 84 on day 08/23 for 14 day also there are various rxs of benzodiazepines- this combo goes back years. 09/16/23 - does have prn diazepam 2.5mg tid prn will dec to 2mg tid prn today- pt has not noticed dec of oxy to q 8 hrs intead of q 6hrs. 09/17 continue current tx. Reason for continued inpatient stay Substantial Risk for: inability to function Time Spent With Patient Time: Total time managing care of this patient today ____ minutes.
[2023-09-17] MEDS: oxyCODONE HCl Immed Release 5 MG TABLET PO ×2 (21:46→23:32)
[2023-09-17 22:00] VITALS: BP 126/60; PULSE 77; RESP 18; TEMP 36.3; O2SAT 94
[2023-09-17] MEDS: traZODone HCL 50 MG TABLET PO (23:41)
[2023-09-18] MEDS: Omeprazole 40 MG CAPSULE.DR PO ×2 (05:50→16:07)
[2023-09-18] MEDS: Levothyroxine Sodium 100 MCG TABLET PO (05:51)
[2023-09-18 07:55] VITALS: BP 136/77; PULSE 98; RESP 15; TEMP 36.7; O2SAT 96
[2023-09-18] MEDS: Fluticasone Propionate Nasal 16 GM SPRAY 1 SPRAY NOSTRIL-B (07:56)
[2023-09-18] MEDS: Lidocaine 4 % Patch ADH..PATCH 1 PATCH TRANSDERMA (07:57)
[2023-09-18] MEDS: Acetaminophen 325 MG TABLET 650 MG PO ×3 (07:57→22:40)
[2023-09-18] MEDS: risperiDONE 1 MG TABLET PO ×2 (07:57→22:41)
[2023-09-18] MEDS: Aspirin Enteric Coated 81 MG TABLET.DR PO (07:57)
[2023-09-18] MEDS: Dicyclomine HCl 10 MG CAPSULE 20 MG PO ×3 (07:58→22:39)
[2023-09-18] MEDS: Sennosides/Docusate Sodium TABLET 1 TAB PO (07:58)
[2023-09-18] MEDS: guaiFENesin DM 600/30 1 TAB TAB.ER.12H PO (07:58)
[2023-09-18] MEDS: Atorvastatin Calcium 40 MG TABLET PO (07:58)
[2023-09-18] MEDS: Metoprolol Tartrate 12.5 MG HALFTAB PO (07:58)
[2023-09-18] MEDS: valACYclovir HCL 500 MG TABLET PO (07:59)
--- NOTE | 2023-09-18 09:23 | HO.PSYCHPN ---
Subjective Subjective Date of Service: 09/18/23 Reason For Visit: delusions Subjective Notes: Conditional Voluntary Interim History: Pt had some difficulty sleeping last night. She reports she thought oxycodone had been discontinued. Pt has been agreeable to try different pain management modalities as pain related to fibromyalgia, as well as arthritis. She also has pain related to ankle fracture. Her chronic pain seemed more under controlled during time she had covid but now again she is having it more. She is on scheduled tylenol. Can try ibuprofen, but also caution due to pt already being on aspirin. 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 She has not been seen since 2014. Review of Systems Review of Systems per hpi Yes all other systems are reviewed and are negative Mental Status Exam Mental Status Exam Patient Appearance: Well Grooomed and Appropriate Patient Orientation: Person, Place and Situation Level of Consciousness: Awake and Alert Patient Behavior: Appropriate and Good Eye Contact Mood Description: Cheerful Affect Description: Happy Patient Cognition Impaired: No Ability to Follow Directions: Good Speech Pattern: Clear Diagnostics Vital Signs (24Hr): Vital Signs - 24 hr 09/17/23 22:00 09/18/23 07:55 Temperature 97.3 F 98.1 F Pulse Rate 77 98 Respiratory Rate 18 15 Blood Pressure 126/60 136/77 Pulse Oximetry 94 96 Oxygen Delivery Method Room Air Room Air BMI result Body Mass Index 18.9 Labs 08/24/23 19:55 08/29/23 07:48 Imaging Radiology Impressions: ITS Impressions Head CT 08/24/23 20:20 IMPRESSION: No acute intracranial pathology. Chest X-Ray 08/25/23 02:00 IMPRESSION: Mild diffuse increased markings suspected to be chronic. No focal lung consolidation or pleural effusion Chest X-Ray 09/04/23 19:06 IMPRESSION: Hyperinflated lungs with no acute consolidation. Mild focal haziness in both upper lobes question postsurgical changes. Correlate clinically. Small 3 mm nodule right midlung. Ankle X-Ray 09/05/23 13:55 IMPRESSION: 1. Subtle nondisplaced fractures of the left medial and lateral malleoli with marked surrounding soft tissue swelling. 2. No acute fracture or malalignment at the pelvis, left hip, and left knee. 3. Minimal osteoarthritis in the left knee. 4. Degenerative disc disease in the lower lumbar spine. 5. Osteopenia. Hip/Pelvis X-Ray 09/05/23 13:55 IMPRESSION: 1. Subtle nondisplaced fractures of the left medial and lateral malleoli with marked surrounding soft tissue swelling. 2. No acute fracture or malalignment at the pelvis, left hip, and left knee. 3. Minimal osteoarthritis in the left knee. 4. Degenerative disc disease in the lower lumbar spine. 5. Osteopenia. Knee X-Ray 09/05/23 13:55 IMPRESSION: 1. Subtle nondisplaced fractures of the left medial and lateral malleoli with marked surrounding soft tissue swelling. 2. No acute fracture or malalignment at the pelvis, left hip, and left knee. 3. Minimal osteoarthritis in the left knee. 4. Degenerative disc disease in the lower lumbar spine. 5. Osteopenia. Head CT 09/05/23 14:03 IMPRESSION: No acute intracranial process seen. . Medications Medications Current Medications Acetaminophen (Acetaminophen 325 Mg Tablet) 650 mg PO TID [facility] Last Admin: 09/18/23 07:57 Dose: 650 mg Al Hydroxide/Mg Hydroxide (Magnesium Hydrox/Alum Hydrox 30 Ml Oral.Susp) 30 ml PO Q6H PRN PRN Reason: Heartburn/Nausea Last Admin: 09/13/23 05:44 Dose: 30 ml Aspirin (Aspirin Enteric Coated 81 Mg Tablet.Dr) 81 mg PO DAILY [facility] Last Admin: 09/18/23 07:57 Dose: 81 mg Atorvastatin Calcium (Atorvastatin Calcium 40 Mg Tablet) 40 mg PO DAILY [facility] Last Admin: 09/18/23 07:58 Dose: 40 mg Diazepam (Diazepam 2 Mg Tablet) 2 mg PO TID PRN PRN Reason: anxiety/restlessness Last Admin: 09/17/23 21:37 Dose: 2 mg Dicyclomine HCl (Dicyclomine Hcl 10 Mg Capsule) 20 mg PO TID [facility] Last Admin: 09/18/23 07:58 Dose: 20 mg Diphenhydramine HCl (Diphenhydramine Hcl 25 Mg Capsule) 25 mg PO Q6H PRN PRN Reason: Cold Symptoms Last Admin: 09/04/23 04:08 Dose: 25 mg Fluticasone Propionate (Fluticasone Propionate Nasal 16 Gm [place]) 1 spray NOSTRIL-B DAILY [facility] Last Admin: 09/18/23 07:56 Dose: 1 spray Guaifenesin (Guaifenesin 200 Mg/10 Ml 10 Ml Liquid) 10 ml PO Q4H PRN PRN Reason: Cough Last Admin: 09/17/23 06:02 Dose: 10 ml Guaifenesin/Dextromethorphan (Guaifenesin Dm 600/30 1 Tab Tab.Er.12h) 1 tab PO BID [facility] Last Admin: 09/18/23 07:58 Dose: 1 tab Levothyroxine Sodium (Levothyroxine Sodium 100 Mcg Tablet) 100 mcg PO DAILY@0600 [facility] Last Admin: 09/18/23 05:51 Dose: 100 mcg Lidocaine (Lidocaine 4 % Patch Adh..Patch) 1 patch TRANSDERMA DAILY [facility]; Protocol Last Admin: 09/18/23 07:57 Dose: 1 patch Loperamide HCl (Loperamide Hcl 2 Mg Capsule) 2 mg PO Q4H PRN PRN Reason: Diarrhea Last Admin: 09/13/23 14:15 Dose: 2 mg Magnesium Hydroxide (Milk Of Magnesia 30 Ml Oral.Susp) 30 ml PO DAILY PRN PRN Reason: Constipation Metoprolol Tartrate (Metoprolol Tartrate 12.5 Mg Halftab) 12.5 mg PO BID [facility]; Protocol Last Admin: 09/18/23 07:58 Dose: 12.5 mg Pt Own (Albuterol (Sulfate 2 Mg Tablet)) 2 mg PO QID PRN PRN Reason: Shortness Of Breath Or Wheezing Last Admin: 09/08/23 09:33 Dose: 2 mg Omeprazole (Omeprazole 40 Mg Capsule.Dr) 40 mg PO BID@0630,1630 [facility] Last Admin: 09/18/23 05:50 Dose: 40 mg Ondansetron HCl (Ondansetron Odt 4 Mg Tab.Rapdis) 4 mg TRANSLINGU Q6H PRN PRN Reason: Nausea and Vomiting Last Admin: 09/07/23 06:32 Dose: 4 mg Oxycodone HCl (Oxycodone Hcl Immed Release 5 Mg Tablet) 5 mg PO Q8H PRN PRN Reason: Pain, Severe (Pain Scale 7-10) Last Admin: 09/17/23 21:46 Dose: 5 mg Risperidone (Risperidone 1 Mg Tablet) 1 mg PO BID [facility] Last Admin: 09/18/23 07:57 Dose: 1 mg Senna/Docusate Sodium (Sennosides/Docusate Sodium Tablet) 1 tab PO BID [facility] Last Admin: 09/18/23 07:58 Dose: 1 tab Simethicone (Simethicone 80 Mg Tab.Chew) 80 mg PO QIDWMHS PRN PRN Reason: bloating Last Admin: 08/31/23 15:34 Dose: 80 mg Sodium Chloride (Sodium Chloride 0.65 % Nasal 44 Ml Sprbtl) 1 spray NOSTRIL-B Q1H PRN PRN Reason: congestion/pnd Trazodone HCl (Trazodone Hcl 50 Mg Tablet) 50 mg PO BEDTIME PRN PRN Reason: Insomnia Last Admin: 09/17/23 23:41 Dose: 50 mg Valacyclovir HCl (Valacyclovir Hcl 500 Mg Tablet) 500 mg PO DAILY [facility] Last Admin: 09/18/23 07:59 Dose: 500 mg Allergies Allergies Allergy/AdvReac Type Severity Reaction Status Date / Time cefaclor [From Ceclor] Allergy Anaphylaxis Verified 08/19/23 16:33 codeine Allergy Vomiting Verified 08/26/23 14:28 doxycycline Allergy Unknown Verified 08/26/23 14:28 fish derived [fish] Allergy Unknown Verified 08/26/23 14:26 hydroxychloroquine Allergy Unknown Verified 08/26/23 14:28 levofloxacin [From Levaquin] Allergy Unknown Verified 08/26/23 14:28 peanut Allergy Unknown Verified 08/26/23 14:28 Sulfa (Sulfonamide Allergy Unknown Verified 08/26/23 14:26 Antibiotics) Assessment & Plan Assessment & Plan (1) Delusional disorder, persecutory type: Status: Acute Code(s): F22 - Delusional disorders Assessment and Plan: 09/16/23 was no table to elicit today Plan 09/11 continue tx. feeling better from covid. will retest to see if still needs isolation. 09/12 continue tx. PT eval 09/13 stable,awaiting PT eval and dispo to [place] home if no recommendation to do short term rehab CTP except consult with addiction medicine about ongoing oxy use for years ? alternatives- now iatrogenic dependence= looked up specialty person dr hurd rxed 180 15mg oxycodone 07/24 for 30 days- supply- 14 day supply of 84 on day 08/23 for 14 day also there are various rxs of benzodiazepines- this combo goes back years. 09/16/23 - does have prn diazepam 2.5mg tid prn will dec to 2mg tid prn today- pt has not noticed dec of oxy to q 8 hrs intead of q 6hrs. 09/17 continue current tx. 09/18 add ibuprofen 600mg po q6h prn. continue all other meds. for fibromyalgia, pt may benefit from gabapentin which she is not on. Reason for continued inpatient stay Substantial Risk for: inability to function Time Spent With Patient Time: Total time managing care of this patient today ____ minutes.
[2023-09-18 10:00] VITALS: BP 133/65; PULSE 77; RESP 16; TEMP 36.2; O2SAT 97
[2023-09-18] MEDS: diazePAM 2 MG TABLET PO (12:50)
[2023-09-18] MEDS: oxyCODONE HCl Immed Release 5 MG TABLET PO (12:50)
--- NOTE | 2023-09-18 14:35 | MHC.CLN ---
F/U DIET=REGULAR WITH ENSURE BID. SUPPLEMENT PROVIDES 700 KCALS, 40 G PROTEIN. VARIABLE INTAKE, 0-100%. MOST RECENT INTAKE 100% X 8 MEALS OVER 4 DAYS. WEIGHT 09/12=49.895 KG. WEIGHT 09/05-44 KG LIKELY ERROR SINCE CURRENT WEIGHT WITHIN MOST RECENT WEIGHT RANGE. RD TO FOLLOW WEEKLY.
[2023-09-18 22:00] VITALS: BP 138/62; PULSE 65; RESP 18; TEMP 35.9; O2SAT 97
[2023-09-19] MEDS: Levothyroxine Sodium 100 MCG TABLET PO (06:44)
[2023-09-19] MEDS: Omeprazole 40 MG CAPSULE.DR PO ×2 (06:44→15:20)
[2023-09-19] MEDS: oxyCODONE HCl Immed Release 5 MG TABLET PO ×2 (06:50→15:20)
[2023-09-19 07:50] VITALS: BP 132/88; PULSE 78; RESP 18; TEMP 36.6; O2SAT 94
[2023-09-19] MEDS: Dicyclomine HCl 10 MG CAPSULE 20 MG PO ×3 (08:27→21:40)
[2023-09-19] MEDS: Aspirin Enteric Coated 81 MG TABLET.DR PO (08:27)
[2023-09-19] MEDS: valACYclovir HCL 500 MG TABLET PO (08:27)
[2023-09-19] MEDS: Atorvastatin Calcium 40 MG TABLET PO (08:27)
[2023-09-19] MEDS: risperiDONE 1 MG TABLET PO ×2 (08:27→21:43)
[2023-09-19] MEDS: Acetaminophen 325 MG TABLET 650 MG PO ×3 (08:28→21:41)
[2023-09-19] MEDS: Lidocaine 4 % Patch ADH..PATCH 1 PATCH TRANSDERMA (08:29)
--- NOTE | 2023-09-19 08:32 | HO.PSYCHPN ---
Subjective Subjective Date of Service: 09/19/23 Reason For Visit: delusions Subjective Notes: Conditional Voluntary Healthcare Proxy: Yes Interim History: Pt slept through the night. She reports she had a restful sleep. She reports less pain today but still in pain at times (sources of pain are chronic joint pain and acute fracture). She denies SI/HI. She has been more visible on the unit. No overt paranoid delusions related to neighbors or others here on the unit. Pt is pleasant on approach. Medication Compliance: Yes Review of Systems Review of Systems per hpi Yes all other systems are reviewed and are negative Mental Status Exam Mental Status Exam Narrative: Appearance: wearing hospital gown, thin, in NAD Behavior: cooperative, friendly Psychomotor: no agitation or retardation noted Speech: clear, regular rate/rhythm/volume, spontaneous TP: linear to circumstance TC: feeling better, but chronic and more acute pain related to ankle fracture. Mood:anxious Affect: anxious SI: denies HI: none Insight/judgment: improving x 2. memory/cog: alert, oriented to hospital and situation, Diagnostics Vital Signs (24Hr): Vital Signs - 24 hr 09/18/23 10:00 09/18/23 22:00 Temperature 97.2 F 96.6 F L Pulse Rate 77 65 Respiratory Rate 16 18 Blood Pressure 133/65 138/62 Pulse Oximetry 97 97 Oxygen Delivery Method Room Air Room Air BMI result Body Mass Index 18.9 Labs 08/24/23 19:55 08/29/23 07:48 Labs: Laboratory Results - last 48 hr 09/18/23 09/18/23 11:13 15:08 TSH 5.15 H Free T4 1.14 NMO/AQP-4 IgG Ab Cancelled COVID-19 ([facility]) Negative COVID-19 Clin Com See Note Imaging Radiology Impressions: ITS Impressions Head CT 08/24/23 20:20 IMPRESSION: No acute intracranial pathology. Chest X-Ray 08/25/23 02:00 IMPRESSION: Mild diffuse increased markings suspected to be chronic. No focal lung consolidation or pleural effusion Chest X-Ray 09/04/23 19:06 IMPRESSION: Hyperinflated lungs with no acute consolidation. Mild focal haziness in both upper lobes question postsurgical changes. Correlate clinically. Small 3 mm nodule right midlung. Ankle X-Ray 09/05/23 13:55 IMPRESSION: 1. Subtle nondisplaced fractures of the left medial and lateral malleoli with marked surrounding soft tissue swelling. 2. No acute fracture or malalignment at the pelvis, left hip, and left knee. 3. Minimal osteoarthritis in the left knee. 4. Degenerative disc disease in the lower lumbar spine. 5. Osteopenia. Hip/Pelvis X-Ray 09/05/23 13:55 IMPRESSION: 1. Subtle nondisplaced fractures of the left medial and lateral malleoli with marked surrounding soft tissue swelling. 2. No acute fracture or malalignment at the pelvis, left hip, and left knee. 3. Minimal osteoarthritis in the left knee. 4. Degenerative disc disease in the lower lumbar spine. 5. Osteopenia. Knee X-Ray 09/05/23 13:55 IMPRESSION: 1. Subtle nondisplaced fractures of the left medial and lateral malleoli with marked surrounding soft tissue swelling. 2. No acute fracture or malalignment at the pelvis, left hip, and left knee. 3. Minimal osteoarthritis in the left knee. 4. Degenerative disc disease in the lower lumbar spine. 5. Osteopenia. Head CT 09/05/23 14:03 IMPRESSION: No acute intracranial process seen. . Medications Medications Current Medications Acetaminophen (Acetaminophen 325 Mg Tablet) 650 mg PO TID [facility] Last Admin: 09/18/23 22:40 Dose: 650 mg Al Hydroxide/Mg Hydroxide (Magnesium Hydrox/Alum Hydrox 30 Ml Oral.Susp) 30 ml PO Q6H PRN PRN Reason: Heartburn/Nausea Last Admin: 09/13/23 05:44 Dose: 30 ml Aspirin (Aspirin Enteric Coated 81 Mg Tablet.Dr) 81 mg PO DAILY [facility] Last Admin: 09/18/23 07:57 Dose: 81 mg Atorvastatin Calcium (Atorvastatin Calcium 40 Mg Tablet) 40 mg PO DAILY [facility] Last Admin: 09/18/23 07:58 Dose: 40 mg Diazepam (Diazepam 2 Mg Tablet) 2 mg PO TID PRN PRN Reason: anxiety/restlessness Last Admin: 09/18/23 12:50 Dose: 2 mg Dicyclomine HCl (Dicyclomine Hcl 10 Mg Capsule) 20 mg PO TID [facility] Last Admin: 09/18/23 22:39 Dose: 20 mg Diphenhydramine HCl (Diphenhydramine Hcl 25 Mg Capsule) 25 mg PO Q6H PRN PRN Reason: Cold Symptoms Last Admin: 09/04/23 04:08 Dose: 25 mg Fluticasone Propionate (Fluticasone Propionate Nasal 16 Gm [place]) 1 spray NOSTRIL-B DAILY [facility] Last Admin: 09/18/23 07:56 Dose: 1 spray Gabapentin (Gabapentin 100 Mg Capsule) 100 mg PO TID [facility] Last Admin: 09/18/23 22:40 Dose: 100 mg Guaifenesin (Guaifenesin 200 Mg/10 Ml 10 Ml Liquid) 10 ml PO Q4H PRN PRN Reason: Cough Last Admin: 09/17/23 06:02 Dose: 10 ml Ibuprofen (Ibuprofen 600 Mg Tablet) 600 mg PO Q8H PRN PRN Reason: Pain, Moderate(Pain Scale 4-6) Last Admin: 09/18/23 12:50 Dose: 600 mg Levothyroxine Sodium (Levothyroxine Sodium 100 Mcg Tablet) 100 mcg PO DAILY@0600 [facility] Last Admin: 09/19/23 06:44 Dose: 100 mcg Lidocaine (Lidocaine 4 % Patch Adh..Patch) 1 patch TRANSDERMA DAILY [facility]; Protocol Last Admin: 09/18/23 07:57 Dose: 1 patch Loperamide HCl (Loperamide Hcl 2 Mg Capsule) 2 mg PO Q4H PRN PRN Reason: Diarrhea Last Admin: 09/13/23 14:15 Dose: 2 mg Magnesium Hydroxide (Milk Of Magnesia 30 Ml Oral.Susp) 30 ml PO DAILY PRN PRN Reason: Constipation Metoprolol Tartrate (Metoprolol Tartrate 12.5 Mg Halftab) 12.5 mg PO BID [facility]; Protocol Last Admin: 09/18/23 22:39 Dose: 12.5 mg Pt Own (Albuterol (Sulfate 2 Mg Tablet)) 2 mg PO QID PRN PRN Reason: Shortness Of Breath Or Wheezing Last Admin: 09/08/23 09:33 Dose: 2 mg Omeprazole (Omeprazole 40 Mg Capsule.Dr) 40 mg PO BID@0630,1630 [facility] Last Admin: 09/19/23 06:44 Dose: 40 mg Ondansetron HCl (Ondansetron Odt 4 Mg Tab.Rapdis) 4 mg TRANSLINGU Q6H PRN PRN Reason: Nausea and Vomiting Last Admin: 09/07/23 06:32 Dose: 4 mg Oxycodone HCl (Oxycodone Hcl Immed Release 5 Mg Tablet) 5 mg PO Q8H PRN PRN Reason: Pain, Severe (Pain Scale 7-10) Last Admin: 09/19/23 06:50 Dose: 5 mg Risperidone (Risperidone 1 Mg Tablet) 1 mg PO BID [facility] Last Admin: 09/18/23 22:41 Dose: 1 mg Senna/Docusate Sodium (Sennosides/Docusate Sodium Tablet) 1 tab PO BID [facility] Last Admin: 09/18/23 22:42 Dose: Not Given Simethicone (Simethicone 80 Mg Tab.Chew) 80 mg PO QIDWMHS PRN PRN Reason: bloating Last Admin: 08/31/23 15:34 Dose: 80 mg Sodium Chloride (Sodium Chloride 0.65 % Nasal 44 Ml Sprbtl) 1 spray NOSTRIL-B Q1H PRN PRN Reason: congestion/pnd Trazodone HCl (Trazodone Hcl 50 Mg Tablet) 50 mg PO BEDTIME PRN PRN Reason: Insomnia Last Admin: 09/17/23 23:41 Dose: 50 mg Valacyclovir HCl (Valacyclovir Hcl 500 Mg Tablet) 500 mg PO DAILY [facility] Last Admin: 09/18/23 07:59 Dose: 500 mg Allergies Allergies Allergy/AdvReac Type Severity Reaction Status Date / Time cefaclor [From Ceclor] Allergy Anaphylaxis Verified 08/19/23 16:33 codeine Allergy Vomiting Verified 08/26/23 14:28 doxycycline Allergy Unknown Verified 08/26/23 14:28 fish derived [fish] Allergy Unknown Verified 08/26/23 14:26 hydroxychloroquine Allergy Unknown Verified 08/26/23 14:28 levofloxacin [From Levaquin] Allergy Unknown Verified 08/26/23 14:28 peanut Allergy Unknown Verified 08/26/23 14:28 Sulfa (Sulfonamide Allergy Unknown Verified 08/26/23 14:26 Antibiotics) Assessment & Plan Assessment & Plan (1) Delusional disorder, persecutory type: Status: Acute Code(s): F22 - Delusional disorders Assessment and Plan: 09/16/23 was no table to elicit today Plan 09/11 continue tx. feeling better from covid. will retest to see if still needs isolation. 09/12 continue tx. PT eval 09/13 stable,awaiting PT eval and dispo to [place] if no recommendation to do short term rehab CTP except consult with addiction medicine about ongoing oxy use for years ? alternatives- now iatrogenic dependence= looked up [facility] clerk dr hurd rxed 180 15mg oxycodone 07/24 for 30 days- supply- 14 day supply of 84 on day 08/23 for 14 day also there are various rxs of benzodiazepines- this combo goes back years. 09/16/23 - does have prn diazepam 2.5mg tid prn will dec to 2mg tid prn today- pt has not noticed dec of oxy to q 8 hrs intead of q 6hrs. 09/17 continue current tx. 09/18 add ibuprofen 600mg po q6h prn. continue all other meds. for fibromyalgia, pt may benefit from gabapentin which she is not on. 09/19 continue tx. Reason for continued inpatient stay Substantial Risk for: inability to function Time Spent With Patient Time: Total time managing care of this patient today ____ minutes.
[2023-09-19 13:54] VITALS: BP 132/88; PULSE 78; O2SAT 94
[2023-09-19] MEDS: diazePAM 2 MG TABLET PO (21:42)
[2023-09-19 22:00] VITALS: BP 127/61; PULSE 95; RESP 16; TEMP 35.9; O2SAT 96
[2023-09-20] MEDS: Omeprazole 40 MG CAPSULE.DR PO ×2 (06:06→16:51)
[2023-09-20] MEDS: Levothyroxine Sodium 100 MCG TABLET PO (06:06)
[2023-09-20 08:09] VITALS: BP 134/69; PULSE 91; RESP 17; TEMP 36.2; O2SAT 97
[2023-09-20] MEDS: risperiDONE 1 MG TABLET PO ×2 (08:10→20:57)
[2023-09-20] MEDS: valACYclovir HCL 500 MG TABLET PO (08:10)
[2023-09-20] MEDS: Aspirin Enteric Coated 81 MG TABLET.DR PO (08:11)
[2023-09-20] MEDS: Acetaminophen 325 MG TABLET 650 MG PO ×3 (08:11→20:54)
[2023-09-20] MEDS: Atorvastatin Calcium 40 MG TABLET PO (08:11)
[2023-09-20] MEDS: Dicyclomine HCl 10 MG CAPSULE 20 MG PO ×3 (08:11→20:56)
[2023-09-20] MEDS: Lidocaine 4 % Patch ADH..PATCH 1 PATCH TRANSDERMA (08:14)
[2023-09-20] MEDS: diazePAM 2 MG TABLET PO (08:42)
--- NOTE | 2023-09-20 08:48 | HO.PSYCHPN ---
Subjective Subjective Date of Service: 09/20/23 Reason For Visit: delusions Subjective Notes: Conditional Voluntary Interim History: Pt slept through the night. Pt reports mood is much improved. She reports less anxious. No SI/HI. No overt delusional content. She reports chronic pain along with acute fracture pain- seems in control. No behavioral concerns. Review of Systems Review of Systems per hpi Yes all other systems are reviewed and are negative Mental Status Exam Mental Status Exam Narrative: Appearance: wearing hospital gown, thin, in NAD Behavior: cooperative, friendly Psychomotor: no agitation or retardation noted Speech: clear, regular rate/rhythm/volume, spontaneous TP: linear to circumstance TC: feeling better, but chronic and more acute pain related to ankle fracture. Mood:anxious Affect: anxious SI: denies HI: none Insight/judgment: improving x 2. memory/cog: alert, oriented to hospital and situation, Diagnostics Vital Signs (24Hr): Vital Signs - 24 hr 09/19/23 13:54 09/19/23 22:00 09/20/23 08:09 Temperature 96.6 F L 97.1 F Pulse Rate 78 95 91 Respiratory Rate 16 17 Blood Pressure 132/88 127/61 134/69 Pulse Oximetry 94 96 97 Oxygen Delivery Method Room Air Room Air BMI result Body Mass Index 18.9 Labs 08/24/23 19:55 08/29/23 07:48 Labs: Laboratory Results - last 48 hr 09/18/23 09/18/23 11:13 15:08 TSH 5.15 H Free T4 1.14 NMO/AQP-4 IgG Ab Cancelled COVID-19 ([facility]) Negative COVID-19 Clin Com See Note Imaging Radiology Impressions: ITS Impressions Head CT 08/24/23 20:20 IMPRESSION: No acute intracranial pathology. Chest X-Ray 08/25/23 02:00 IMPRESSION: Mild diffuse increased markings suspected to be chronic. No focal lung consolidation or pleural effusion Chest X-Ray 09/04/23 19:06 IMPRESSION: Hyperinflated lungs with no acute consolidation. Mild focal haziness in both upper lobes question postsurgical changes. Correlate clinically. Small 3 mm nodule right midlung. Ankle X-Ray 09/05/23 13:55 IMPRESSION: 1. Subtle nondisplaced fractures of the left medial and lateral malleoli with marked surrounding soft tissue swelling. 2. No acute fracture or malalignment at the pelvis, left hip, and left knee. 3. Minimal osteoarthritis in the left knee. 4. Degenerative disc disease in the lower lumbar spine. 5. Osteopenia. Hip/Pelvis X-Ray 09/05/23 13:55 IMPRESSION: 1. Subtle nondisplaced fractures of the left medial and lateral malleoli with marked surrounding soft tissue swelling. 2. No acute fracture or malalignment at the pelvis, left hip, and left knee. 3. Minimal osteoarthritis in the left knee. 4. Degenerative disc disease in the lower lumbar spine. 5. Osteopenia. Knee X-Ray 09/05/23 13:55 IMPRESSION: 1. Subtle nondisplaced fractures of the left medial and lateral malleoli with marked surrounding soft tissue swelling. 2. No acute fracture or malalignment at the pelvis, left hip, and left knee. 3. Minimal osteoarthritis in the left knee. 4. Degenerative disc disease in the lower lumbar spine. 5. Osteopenia. Head CT 09/05/23 14:03 IMPRESSION: No acute intracranial process seen. . Medications Medications Current Medications Acetaminophen (Acetaminophen 325 Mg Tablet) 650 mg PO TID [facility] Last Admin: 09/20/23 08:11 Dose: 650 mg Al Hydroxide/Mg Hydroxide (Magnesium Hydrox/Alum Hydrox 30 Ml Oral.Susp) 30 ml PO Q6H PRN PRN Reason: Heartburn/Nausea Last Admin: 09/13/23 05:44 Dose: 30 ml Aspirin (Aspirin Enteric Coated 81 Mg Tablet.Dr) 81 mg PO DAILY [facility] Last Admin: 09/20/23 08:11 Dose: 81 mg Atorvastatin Calcium (Atorvastatin Calcium 40 Mg Tablet) 40 mg PO DAILY [facility] Last Admin: 09/20/23 08:11 Dose: 40 mg Diazepam (Diazepam 2 Mg Tablet) 2 mg PO TID PRN PRN Reason: anxiety/restlessness Last Admin: 09/20/23 08:42 Dose: 2 mg Dicyclomine HCl (Dicyclomine Hcl 10 Mg Capsule) 20 mg PO TID [facility] Last Admin: 09/20/23 08:11 Dose: 20 mg Diphenhydramine HCl (Diphenhydramine Hcl 25 Mg Capsule) 25 mg PO Q6H PRN PRN Reason: Cold Symptoms Last Admin: 09/04/23 04:08 Dose: 25 mg Fluticasone Propionate (Fluticasone Propionate Nasal 16 Gm [place]) 1 spray NOSTRIL-B DAILY [facility] Last Admin: 09/20/23 08:43 Dose: 1 spray Gabapentin (Gabapentin 100 Mg Capsule) 100 mg PO TID [facility] Last Admin: 09/20/23 08:11 Dose: 100 mg Guaifenesin (Guaifenesin 200 Mg/10 Ml 10 Ml Liquid) 10 ml PO Q4H PRN PRN Reason: Cough Last Admin: 09/19/23 23:58 Dose: 10 ml Ibuprofen (Ibuprofen 600 Mg Tablet) 600 mg PO Q8H PRN PRN Reason: Pain, Moderate(Pain Scale 4-6) Last Admin: 09/19/23 12:47 Dose: 600 mg Levothyroxine Sodium (Levothyroxine Sodium 100 Mcg Tablet) 100 mcg PO DAILY@0600 [facility] Last Admin: 09/20/23 06:06 Dose: 100 mcg Lidocaine (Lidocaine 4 % Patch Adh..Patch) 1 patch TRANSDERMA DAILY [facility]; Protocol Last Admin: 09/20/23 08:14 Dose: 1 patch Loperamide HCl (Loperamide Hcl 2 Mg Capsule) 2 mg PO Q4H PRN PRN Reason: Diarrhea Last Admin: 09/13/23 14:15 Dose: 2 mg Magnesium Hydroxide (Milk Of Magnesia 30 Ml Oral.Susp) 30 ml PO DAILY PRN PRN Reason: Constipation Metoprolol Tartrate (Metoprolol Tartrate 12.5 Mg Halftab) 12.5 mg PO BID [facility]; Protocol Last Admin: 09/20/23 08:10 Dose: 12.5 mg Pt Own (Albuterol (Sulfate 2 Mg Tablet)) 2 mg PO QID PRN PRN Reason: Shortness Of Breath Or Wheezing Last Admin: 09/08/23 09:33 Dose: 2 mg Omeprazole (Omeprazole 40 Mg Capsule.Dr) 40 mg PO BID@0630,1630 [facility] Last Admin: 09/20/23 06:06 Dose: 40 mg Ondansetron HCl (Ondansetron Odt 4 Mg Tab.Rapdis) 4 mg TRANSLINGU Q6H PRN PRN Reason: Nausea and Vomiting Last Admin: 09/07/23 06:32 Dose: 4 mg Oxycodone HCl (Oxycodone Hcl Immed Release 5 Mg Tablet) 5 mg PO Q6H PRN PRN Reason: Pain, Severe (Pain Scale 7-10) Last Admin: 09/20/23 06:06 Dose: 5 mg Risperidone (Risperidone 1 Mg Tablet) 1 mg PO BID [facility] Last Admin: 09/20/23 08:10 Dose: 1 mg Senna/Docusate Sodium (Sennosides/Docusate Sodium Tablet) 1 tab PO BID [facility] Last Admin: 09/20/23 08:14 Dose: Not Given Simethicone (Simethicone 80 Mg Tab.Chew) 80 mg PO QIDWMHS PRN PRN Reason: bloating Last Admin: 08/31/23 15:34 Dose: 80 mg Trazodone HCl (Trazodone Hcl 50 Mg Tablet) 50 mg PO BEDTIME PRN PRN Reason: Insomnia Last Admin: 09/17/23 23:41 Dose: 50 mg Valacyclovir HCl (Valacyclovir Hcl 500 Mg Tablet) 500 mg PO DAILY [facility] Last Admin: 09/20/23 08:10 Dose: 500 mg Allergies Allergies Allergy/AdvReac Type Severity Reaction Status Date / Time cefaclor [From Ceclor] Allergy Anaphylaxis Verified 08/19/23 16:33 codeine Allergy Vomiting Verified 08/26/23 14:28 doxycycline Allergy Unknown Verified 08/26/23 14:28 fish derived [fish] Allergy Unknown Verified 08/26/23 14:26 hydroxychloroquine Allergy Unknown Verified 08/26/23 14:28 levofloxacin [From Levaquin] Allergy Unknown Verified 08/26/23 14:28 peanut Allergy Unknown Verified 08/26/23 14:28 Sulfa (Sulfonamide Allergy Unknown Verified 08/26/23 14:26 Antibiotics) Assessment & Plan Assessment & Plan (1) Delusional disorder, persecutory type: Status: Acute Code(s): F22 - Delusional disorders Assessment and Plan: 09/16/23 was no table to elicit today Plan 09/11 continue tx. feeling better from covid. will retest to see if still needs isolation. 09/12 continue tx. PT eval 09/13 stable,awaiting PT eval and dispo to [place] home if no recommendation to do short term rehab CTP except consult with addiction medicine about ongoing oxy use for years ? 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 09/16/23 - does have prn diazepam 2.5mg tid prn will dec to 2mg tid prn today- pt has not noticed dec of oxy to q 8 hrs intead of q 6hrs. 09/17 continue current tx. 09/18 add ibuprofen 600mg po q6h prn. continue all other meds. for fibromyalgia, pt may benefit from gabapentin which she is not on. 09/19 continue tx. 09/20 plan to d/c Saturday. Reason for continued inpatient stay Substantial Risk for: inability to function Time Spent With Patient Time: Total time managing care of this patient today ____ minutes.
[2023-09-20] MEDS: traZODone HCL 50 MG TABLET PO (20:55)
[2023-09-20 22:00] VITALS: BP 136/60; PULSE 80; RESP 16; TEMP 36.8; O2SAT 96
[2023-09-21] MEDS: Omeprazole 40 MG CAPSULE.DR PO ×2 (05:46→17:04)
[2023-09-21] MEDS: Levothyroxine Sodium 100 MCG TABLET PO (05:48)
[2023-09-21 08:00] VITALS: BP 138/66; PULSE 84; RESP 18; TEMP 36.6; O2SAT 96
[2023-09-21] MEDS: Acetaminophen 325 MG TABLET 650 MG PO ×3 (08:27→21:13)
[2023-09-21] MEDS: Dicyclomine HCl 10 MG CAPSULE 20 MG PO ×3 (08:27→21:11)
[2023-09-21] MEDS: Aspirin Enteric Coated 81 MG TABLET.DR PO (08:27)
[2023-09-21] MEDS: valACYclovir HCL 500 MG TABLET PO (08:27)
[2023-09-21] MEDS: Atorvastatin Calcium 40 MG TABLET PO (08:28)
[2023-09-21] MEDS: risperiDONE 1 MG TABLET PO ×2 (08:28→21:10)
--- NOTE | 2023-09-21 12:33 | HO.PSYCHPN ---
Subjective Subjective Date of Service: 09/21/23 Reason For Visit: delusions Subjective Notes: Conditional Voluntary Medical Problems Affecting Mental Status: No Interim History: met with patient. Discussed with Nursing. Chart reviewed. Pleasant. Noted gradual lowering of medications. With senior medical writer reports that she is still recovering from COVID and therefore low energy and feeling tired. Reports overall generalized body pain in her arm, back and foot. Denies overt depression. No psychosis. No SI. No med concerns. Medication Compliance: Yes Side effects from medications: No Attending Groups: Intermittent Review of Systems Acute medical concerns: No Review of Systems Review of Systems Generalized body pain, that has already been documented Mental Status Exam Mental Status Exam Narrative: Appearance: wearing hospital gown, thin, in NAD Behavior: cooperative, friendly Psychomotor: no agitation or retardation noted Speech: clear, regular rate/rhythm/volume, spontaneous TP: linear to circumstance TC: feeling better, but chronic and more acute pain - back, ankle, arms- attributes to post COVID. Mood:anxious Affect: anxious SI: denies HI: none Insight/judgment: improving. memory/cog: alert, oriented to hospital and situation, Diagnostics Vital Signs (24Hr): Vital Signs - 24 hr 09/20/23 22:00 09/21/23 08:00 Temperature 98.3 F 97.9 F Pulse Rate 80 84 Respiratory Rate 16 18 Blood Pressure 136/60 138/66 Pulse Oximetry 96 96 Oxygen Delivery Method Room Air Room Air BMI result Body Mass Index 18.9 Labs 08/24/23 19:55 08/29/23 07:48 Imaging Radiology Impressions: ITS Impressions Head CT 08/24/23 20:20 IMPRESSION: No acute intracranial pathology. Chest X-Ray 08/25/23 02:00 IMPRESSION: Mild diffuse increased markings suspected to be chronic. No focal lung consolidation or pleural effusion Chest X-Ray 09/04/23 19:06 IMPRESSION: Hyperinflated lungs with no acute consolidation. Mild focal haziness in both upper lobes question postsurgical changes. Correlate clinically. Small 3 mm nodule right midlung. Ankle X-Ray 09/05/23 13:55 IMPRESSION: 1. Subtle nondisplaced fractures of the left medial and lateral malleoli with marked surrounding soft tissue swelling. 2. No acute fracture or malalignment at the pelvis, left hip, and left knee. 3. Minimal osteoarthritis in the left knee. 4. Degenerative disc disease in the lower lumbar spine. 5. Osteopenia. Hip/Pelvis X-Ray 09/05/23 13:55 IMPRESSION: 1. Subtle nondisplaced fractures of the left medial and lateral malleoli with marked surrounding soft tissue swelling. 2. No acute fracture or malalignment at the pelvis, left hip, and left knee. 3. Minimal osteoarthritis in the left knee. 4. Degenerative disc disease in the lower lumbar spine. 5. Osteopenia. Knee X-Ray 09/05/23 13:55 IMPRESSION: 1. Subtle nondisplaced fractures of the left medial and lateral malleoli with marked surrounding soft tissue swelling. 2. No acute fracture or malalignment at the pelvis, left hip, and left knee. 3. Minimal osteoarthritis in the left knee. 4. Degenerative disc disease in the lower lumbar spine. 5. Osteopenia. Head CT 09/05/23 14:03 IMPRESSION: No acute intracranial process seen. . Medications Medications Current Medications Acetaminophen (Acetaminophen 325 Mg Tablet) 650 mg PO TID [facility] Last Admin: 09/21/23 08:27 Dose: 650 mg Al Hydroxide/Mg Hydroxide (Magnesium Hydrox/Alum Hydrox 30 Ml Oral.Susp) 30 ml PO Q6H PRN PRN Reason: Heartburn/Nausea Last Admin: 09/13/23 05:44 Dose: 30 ml Aspirin (Aspirin Enteric Coated 81 Mg Tablet.Dr) 81 mg PO DAILY [facility] Last Admin: 09/21/23 08:27 Dose: 81 mg Atorvastatin Calcium (Atorvastatin Calcium 40 Mg Tablet) 40 mg PO DAILY [facility] Last Admin: 09/21/23 08:28 Dose: 40 mg Diazepam (Diazepam 2 Mg Tablet) 2 mg PO TID PRN PRN Reason: anxiety/restlessness Dicyclomine HCl (Dicyclomine Hcl 10 Mg Capsule) 20 mg PO TID [facility] Last Admin: 09/21/23 08:27 Dose: 20 mg Diphenhydramine HCl (Diphenhydramine Hcl 25 Mg Capsule) 25 mg PO Q6H PRN PRN Reason: Cold Symptoms Last Admin: 09/04/23 04:08 Dose: 25 mg Fluticasone Propionate (Fluticasone Propionate Nasal 16 Gm [place]) 1 spray NOSTRIL-B DAILY [facility] Last Admin: 09/21/23 08:46 Dose: 1 spray Gabapentin (Gabapentin 100 Mg Capsule) 100 mg PO TID [facility] Last Admin: 09/21/23 08:28 Dose: 100 mg Guaifenesin (Guaifenesin 200 Mg/10 Ml 10 Ml Liquid) 10 ml PO Q4H PRN PRN Reason: Cough Last Admin: 09/19/23 23:58 Dose: 10 ml Ibuprofen (Ibuprofen 600 Mg Tablet) 600 mg PO Q8H PRN PRN Reason: Pain, Moderate(Pain Scale 4-6) Last Admin: 09/19/23 12:47 Dose: 600 mg Levothyroxine Sodium (Levothyroxine Sodium 100 Mcg Tablet) 100 mcg PO DAILY@0600 [facility] Last Admin: 09/21/23 05:48 Dose: 100 mcg Lidocaine (Lidocaine 4 % Patch Adh..Patch) 1 patch TRANSDERMA DAILY [facility]; Protocol Last Admin: 09/21/23 08:45 Dose: 1 patch Loperamide HCl (Loperamide Hcl 2 Mg Capsule) 2 mg PO Q4H PRN PRN Reason: Diarrhea Last Admin: 09/13/23 14:15 Dose: 2 mg Magnesium Hydroxide (Milk Of Magnesia 30 Ml Oral.Susp) 30 ml PO DAILY PRN PRN Reason: Constipation Metoprolol Tartrate (Metoprolol Tartrate 12.5 Mg Halftab) 12.5 mg PO BID [facility]; Protocol Last Admin: 09/21/23 08:27 Dose: 12.5 mg Pt Own (Albuterol (Sulfate 2 Mg Tablet)) 2 mg PO QID PRN PRN Reason: Shortness Of Breath Or Wheezing Last Admin: 09/08/23 09:33 Dose: 2 mg Omeprazole (Omeprazole 40 Mg Capsule.Dr) 40 mg PO BID@0630,1630 [facility] Last Admin: 09/21/23 05:46 Dose: 40 mg Ondansetron HCl (Ondansetron Odt 4 Mg Tab.Rapdis) 4 mg TRANSLINGU Q6H PRN PRN Reason: Nausea and Vomiting Last Admin: 09/07/23 06:32 Dose: 4 mg Oxycodone HCl (Oxycodone Hcl Immed Release 5 Mg Tablet) 5 mg PO Q6H PRN PRN Reason: Pain, Severe (Pain Scale 7-10) Last Admin: 09/21/23 05:46 Dose: 5 mg Risperidone (Risperidone 1 Mg Tablet) 1 mg PO BID [facility] Last Admin: 09/21/23 08:28 Dose: 1 mg Senna/Docusate Sodium (Sennosides/Docusate Sodium Tablet) 1 tab PO BID [facility] Last Admin: 09/21/23 08:30 Dose: Not Given Simethicone (Simethicone 80 Mg Tab.Chew) 80 mg PO QIDWMHS PRN PRN Reason: bloating Last Admin: 08/31/23 15:34 Dose: 80 mg Trazodone HCl (Trazodone Hcl 50 Mg Tablet) 50 mg PO BEDTIME PRN PRN Reason: Insomnia Last Admin: 09/20/23 20:55 Dose: 50 mg Valacyclovir HCl (Valacyclovir Hcl 500 Mg Tablet) 500 mg PO DAILY [facility] Last Admin: 09/21/23 08:27 Dose: 500 mg Allergies Allergies Allergy/AdvReac Type Severity Reaction Status Date / Time cefaclor [From Ceclor] Allergy Anaphylaxis Verified 08/19/23 16:33 codeine Allergy Vomiting Verified 08/26/23 14:28 doxycycline Allergy Unknown Verified 08/26/23 14:28 fish derived [fish] Allergy Unknown Verified 08/26/23 14:26 hydroxychloroquine Allergy Unknown Verified 08/26/23 14:28 levofloxacin [From Levaquin] Allergy Unknown Verified 08/26/23 14:28 peanut Allergy Unknown Verified 08/26/23 14:28 Sulfa (Sulfonamide Allergy Unknown Verified 08/26/23 14:26 Antibiotics) Assessment & Plan Assessment & Plan (1) Delusional disorder, persecutory type: Status: Acute Code(s): F22 - Delusional disorders Assessment and Plan: 09/16/23 was no table to elicit today Plan 09/11 continue tx. feeling better from covid. will retest to see if still needs isolation. 09/12 continue tx. PT eval 09/13 stable,awaiting PT eval and dispo to [place] if no recommendation to do short term rehab CTP except consult with addiction medicine about ongoing oxy use for years ? 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 09/16/23 - does have prn diazepam 2.5mg tid prn will dec to 2mg tid prn today- pt has not noticed dec of oxy to q 8 hrs intead of q 6hrs. 09/17 continue current tx. 09/18 add ibuprofen 600mg po q6h prn. continue all other meds. for fibromyalgia, pt may benefit from gabapentin which she is not on. 09/19 continue tx. 09/20 plan to d/c Saturday. 09/21/2023: No changes to current plan Reason for continued inpatient stay Substantial Risk for: rapid decompensation Time Spent With Patient Time: Total time managing care of this patient today ____ minutes.
[2023-09-21 22:00] VITALS: BP 135/60; PULSE 76; RESP 16; TEMP 36.6; O2SAT 97
[2023-09-22] MEDS: Levothyroxine Sodium 100 MCG TABLET PO (05:53)
[2023-09-22] MEDS: Omeprazole 40 MG CAPSULE.DR PO (05:53)
[2023-09-22] MEDS: Atorvastatin Calcium 40 MG TABLET PO (08:23)
[2023-09-22] MEDS: Dicyclomine HCl 10 MG CAPSULE 20 MG PO ×3 (08:24→21:36)
[2023-09-22] MEDS: risperiDONE 1 MG TABLET PO ×2 (08:24→21:37)
[2023-09-22] MEDS: valACYclovir HCL 500 MG TABLET PO (08:24)
[2023-09-22] MEDS: Acetaminophen 325 MG TABLET 650 MG PO ×3 (08:24→21:38)
[2023-09-22 08:30] VITALS: BP 151/65; PULSE 87; RESP 18; TEMP 36.2; O2SAT 95
[2023-09-22] MEDS: Aspirin Enteric Coated 81 MG TABLET.DR PO (08:30)
--- NOTE | 2023-09-22 10:30 | HO.PSYCHPN ---
Subjective Subjective Date of Service: 09/22/23 Reason For Visit: delusions Interim History: met with patient. Discussed with Nursing. Chart reviewed. Pleasant. looking forward to discharge. Sleep okay. Energy okay. Enjoyed watching [place] last night. Denies overt depression. No psychosis. No SI. No med concerns. Medication Compliance: Yes Side effects from medications: No Attending Groups: Intermittent Review of Systems Acute medical concerns: No Review of Systems Review of Systems Generalized body pain, that has already been documented Mental Status Exam Mental Status Exam Narrative: Appearance: wearing hospital gown, thin, in NAD Behavior: cooperative, friendly Psychomotor: no agitation or retardation noted Speech: clear, regular rate/rhythm/volume, spontaneous TP: linear to circumstance TC: feeling better, but chronic and more acute pain - back, ankle, arms- attributes to post COVID. Mood:anxious Affect: anxious SI: denies HI: none Insight/judgment: improving. memory/cog: alert, oriented to hospital and situation, Diagnostics Vital Signs (24Hr): Vital Signs - 24 hr 09/21/23 22:00 Temperature 97.8 F Pulse Rate 76 Respiratory Rate 16 Blood Pressure 135/60 Pulse Oximetry 97 Oxygen Delivery Method Room Air BMI result Body Mass Index 18.9 Labs 08/24/23 19:55 08/29/23 07:48 Imaging Radiology Impressions: ITS Impressions Head CT 08/24/23 20:20 IMPRESSION: No acute intracranial pathology. Chest X-Ray 08/25/23 02:00 IMPRESSION: Mild diffuse increased markings suspected to be chronic. No focal lung consolidation or pleural effusion Chest X-Ray 09/04/23 19:06 IMPRESSION: Hyperinflated lungs with no acute consolidation. Mild focal haziness in both upper lobes question postsurgical changes. Correlate clinically. Small 3 mm nodule right midlung. Ankle X-Ray 09/05/23 13:55 IMPRESSION: 1. Subtle nondisplaced fractures of the left medial and lateral malleoli with marked surrounding soft tissue swelling. 2. No acute fracture or malalignment at the pelvis, left hip, and left knee. 3. Minimal osteoarthritis in the left knee. 4. Degenerative disc disease in the lower lumbar spine. 5. Osteopenia. Hip/Pelvis X-Ray 09/05/23 13:55 IMPRESSION: 1. Subtle nondisplaced fractures of the left medial and lateral malleoli with marked surrounding soft tissue swelling. 2. No acute fracture or malalignment at the pelvis, left hip, and left knee. 3. Minimal osteoarthritis in the left knee. 4. Degenerative disc disease in the lower lumbar spine. 5. Osteopenia. Knee X-Ray 09/05/23 13:55 IMPRESSION: 1. Subtle nondisplaced fractures of the left medial and lateral malleoli with marked surrounding soft tissue swelling. 2. No acute fracture or malalignment at the pelvis, left hip, and left knee. 3. Minimal osteoarthritis in the left knee. 4. Degenerative disc disease in the lower lumbar spine. 5. Osteopenia. Head CT 09/05/23 14:03 IMPRESSION: No acute intracranial process seen. . Medications Medications Current Medications Acetaminophen (Acetaminophen 325 Mg Tablet) 650 mg PO TID [facility] Last Admin: 09/22/23 08:24 Dose: 650 mg Al Hydroxide/Mg Hydroxide (Magnesium Hydrox/Alum Hydrox 30 Ml Oral.Susp) 30 ml PO Q6H PRN PRN Reason: Heartburn/Nausea Last Admin: 09/13/23 05:44 Dose: 30 ml Aspirin (Aspirin Enteric Coated 81 Mg Tablet.Dr) 81 mg PO DAILY [facility] Last Admin: 09/22/23 08:30 Dose: 81 mg Atorvastatin Calcium (Atorvastatin Calcium 40 Mg Tablet) 40 mg PO DAILY [facility] Last Admin: 09/22/23 08:23 Dose: 40 mg Diazepam (Diazepam 2 Mg Tablet) 2 mg PO TID PRN PRN Reason: anxiety/restlessness Last Admin: 09/21/23 21:12 Dose: 2 mg Dicyclomine HCl (Dicyclomine Hcl 10 Mg Capsule) 20 mg PO TID [facility] Last Admin: 09/22/23 08:24 Dose: 20 mg Diphenhydramine HCl (Diphenhydramine Hcl 25 Mg Capsule) 25 mg PO Q6H PRN PRN Reason: Cold Symptoms Last Admin: 09/04/23 04:08 Dose: 25 mg Fluticasone Propionate (Fluticasone Propionate Nasal 16 Gm [place]) 1 spray NOSTRIL-B DAILY [facility] Last Admin: 09/22/23 08:23 Dose: 1 spray Gabapentin (Gabapentin 100 Mg Capsule) 100 mg PO TID [facility] Last Admin: 09/22/23 08:24 Dose: 100 mg Guaifenesin (Guaifenesin 200 Mg/10 Ml 10 Ml Liquid) 10 ml PO Q4H PRN PRN Reason: Cough Last Admin: 09/19/23 23:58 Dose: 10 ml Ibuprofen (Ibuprofen 600 Mg Tablet) 600 mg PO Q8H PRN PRN Reason: Pain, Moderate(Pain Scale 4-6) Last Admin: 09/19/23 12:47 Dose: 600 mg Levothyroxine Sodium (Levothyroxine Sodium 100 Mcg Tablet) 100 mcg PO DAILY@0600 [facility] Last Admin: 09/22/23 05:53 Dose: 100 mcg Lidocaine (Lidocaine 4 % Patch Adh..Patch) 1 patch TRANSDERMA DAILY [facility]; Protocol Last Admin: 09/22/23 08:24 Dose: 1 patch Loperamide HCl (Loperamide Hcl 2 Mg Capsule) 2 mg PO Q4H PRN PRN Reason: Diarrhea Last Admin: 09/13/23 14:15 Dose: 2 mg Magnesium Hydroxide (Milk Of Magnesia 30 Ml Oral.Susp) 30 ml PO DAILY PRN PRN Reason: Constipation Metoprolol Tartrate (Metoprolol Tartrate 12.5 Mg Halftab) 12.5 mg PO BID [facility]; Protocol Last Admin: 09/22/23 08:24 Dose: 12.5 mg Pt Own (Albuterol (Sulfate 2 Mg Tablet)) 2 mg PO QID PRN PRN Reason: Shortness Of Breath Or Wheezing Last Admin: 09/08/23 09:33 Dose: 2 mg Omeprazole (Omeprazole 40 Mg Capsule.Dr) 40 mg PO BID@0630,1630 [facility] Last Admin: 09/22/23 05:53 Dose: 40 mg Ondansetron HCl (Ondansetron Odt 4 Mg Tab.Rapdis) 4 mg TRANSLINGU Q6H PRN PRN Reason: Nausea and Vomiting Last Admin: 09/07/23 06:32 Dose: 4 mg Oxycodone HCl (Oxycodone Hcl Immed Release 5 Mg Tablet) 5 mg PO Q6H PRN PRN Reason: Pain, Severe (Pain Scale 7-10) Last Admin: 09/22/23 05:52 Dose: 5 mg Risperidone (Risperidone 1 Mg Tablet) 1 mg PO BID [facility] Last Admin: 09/22/23 08:24 Dose: 1 mg Senna/Docusate Sodium (Sennosides/Docusate Sodium Tablet) 1 tab PO BID [facility] Last Admin: 09/22/23 08:23 Dose: Not Given Simethicone (Simethicone 80 Mg Tab.Chew) 80 mg PO QIDWMHS PRN PRN Reason: bloating Last Admin: 08/31/23 15:34 Dose: 80 mg Trazodone HCl (Trazodone Hcl 50 Mg Tablet) 50 mg PO BEDTIME PRN PRN Reason: Insomnia Last Admin: 09/20/23 20:55 Dose: 50 mg Valacyclovir HCl (Valacyclovir Hcl 500 Mg Tablet) 500 mg PO DAILY [facility] Last Admin: 09/22/23 08:24 Dose: 500 mg Allergies Allergies Allergy/AdvReac Type Severity Reaction Status Date / Time cefaclor [From Ceclor] Allergy Anaphylaxis Verified 08/19/23 16:33 codeine Allergy Vomiting Verified 08/26/23 14:28 doxycycline Allergy Unknown Verified 08/26/23 14:28 fish derived [fish] Allergy Unknown Verified 08/26/23 14:26 hydroxychloroquine Allergy Unknown Verified 08/26/23 14:28 levofloxacin [From Levaquin] Allergy Unknown Verified 08/26/23 14:28 peanut Allergy Unknown Verified 08/26/23 14:28 Sulfa (Sulfonamide Allergy Unknown Verified 08/26/23 14:26 Antibiotics) Assessment & Plan Assessment & Plan (1) Delusional disorder, persecutory type: Status: Acute Code(s): F22 - Delusional disorders Assessment and Plan: 09/16/23 was no table to elicit today Plan 09/11 continue tx. feeling better from covid. will retest to see if still needs isolation. 09/12 continue tx. PT eval 09/13 stable,awaiting PT eval and dispo to [place] home if no recommendation to do short term rehab CTP except consult with addiction medicine about ongoing oxy use for years ? alternatives- now iatrogenic dependence= looked up [employer] dr hurd rxed 180 15mg oxycodone 07/24 for 30 days- supply- 14 day supply of 84 on day 08/23 for 14 day also there are various rxs of benzodiazepines- this combo goes back years. 09/16/23 - does have prn diazepam 2.5mg tid prn will dec to 2mg tid prn today- pt has not noticed dec of oxy to q 8 hrs intead of q 6hrs. 09/17 continue current tx. 1/3 add ibuprofen 600mg po q6h prn. continue all other meds. for fibromyalgia, pt may benefit from gabapentin which she is not on. 09/19 continue tx. 09/20 plan to d/c Saturday. 09/21/2023: No changes to current plan 09/22/2023: No changes to current plan Reason for continued inpatient stay Substantial Risk for: rapid decompensation Time Spent With Patient Time: Total time managing care of this patient today ____ minutes.
[2023-09-22 22:00] VITALS: BP 140/59; PULSE 79; RESP 18; TEMP 35.8; O2SAT 98
[2023-09-22] MEDS: traZODone HCL 50 MG TABLET PO (23:39)
[2023-09-23] MEDS: Levothyroxine Sodium 100 MCG TABLET PO (05:53)
[2023-09-23 08:32] VITALS: BP 119/70; PULSE 79; RESP 18; TEMP 36.6; O2SAT 98
[2023-09-23] MEDS: Acetaminophen 325 MG TABLET 650 MG PO (08:38)
[2023-09-23] MEDS: Aspirin Enteric Coated 81 MG TABLET.DR PO (08:39)
[2023-09-23] MEDS: Dicyclomine HCl 10 MG CAPSULE 20 MG PO (08:39)
[2023-09-23] MEDS: risperiDONE 1 MG TABLET PO (08:39)
[2023-09-23] MEDS: valACYclovir HCL 500 MG TABLET PO (08:39)
[2023-09-23] MEDS: Atorvastatin Calcium 40 MG TABLET PO (08:39)
--- NOTE | 2023-09-23 09:33 | PM.PSYDC ---
DS: Providers Provider Date of Service: 09/23/23 Date of admission: 08/28/23 14:25 Date of discharge: 09/23/23 Primary care physician: Adarsh Boone DO, MD Consults: 09/04/23 15:47 Consult to Hospitalist Routine Comment: Consulting Provider: Hospitalist Reason For Exam: covid, desaturating 09/05/23 12:05 Consult to Hospitalist Routine Comment: Consulting Provider: Hospitalist Reason For Exam: fall, hurt ankle 09/05/23 20:59 Consult to Orthopedics Routine Consulting Provider: [facility] Reason for consultation: Left medial and lteral malleoli fractures, fitting for boot DS: Diagnosis Discharge Diagnosis (1) Delusional disorder, persecutory type: Status: Acute DS: Medications Discharge Medications Home Medications: Home Medications Medication Instructions Recorded Confirmed albuterol sulfate 2 mg tablet 2 mg PO QID PRN Shortness Of 08/25/23 08/25/23 Breath Or Wheezing aspirin 81 mg tablet,delayed 81 mg PO DAILY 08/25/23 08/25/23 release atorvastatin 40 mg tablet 40 mg PO DAILY 08/25/23 08/25/23 dicyclomine 20 mg tablet 20 mg PO TID 08/25/23 08/25/23 levothyroxine 100 mcg tablet 100 mcg PO QAM 08/25/23 08/25/23 metoprolol tartrate 25 mg tablet 12.5 mg PO BID 08/25/23 08/25/23 omeprazole 40 mg capsule,delayed 40 mg PO BID 08/25/23 08/25/23 release valacyclovir 500 mg tablet 500 mg PO DAILY 08/25/23 08/25/23 Previous Rx's Medication Instructions Recorded acetaminophen 325 mg tablet 650 mg (2 x 325 mg) PO TID #0 tabs 09/23/23 diazepam 2 mg tablet 2 mg PO TID PRN 09/23/23 Anxiety/Restlessness #0 tabs gabapentin 100 mg capsule 100 mg PO TID #90 caps 09/23/23 lidocaine 4 % topical patch 1 patch transdermal DAILY #30 ea 09/23/23 (Lidocaine Pain Relief) oxycodone 5 mg tablet 5 mg PO Q6H PRN Pain, Severe (Pain 09/23/23 Scale 7-10) #0 tabs risperidone 1 mg tablet 1 mg PO BID #60 tabs 09/23/23 sennosides 8.6 mg-docusate sodium 1 tab PO BID #60 tabs 09/23/23 50 mg tablet (Senna Plus) trazodone 50 mg tablet 50 mg PO BEDTIME PRN Insomnia #30 09/23/23 tabs Mental Status Exam Mental Status Exam Narrative: Appearance: wearing hospital gown, thin, in NAD Behavior: cooperative, friendly Psychomotor: no agitation or retardation noted Speech: clear, regular rate/rhythm/volume, spontaneous TP: linear to circumstance TC: feeling better, but acute on chronic pain Mood:better Affect: brighter, non labile SI: denies HI: none Insight/judgment: improving x 2. memory/cog: alert, oriented x 3. Data Data Completed and Pending Completed studies during hospitalization [Text1]: 09/18/23 09/18/23 11:13 15:08 TSH 5.15 H Free T4 1.14 NMO/AQP-4 IgG Ab Cancelled COVID-19 (MARIO) Negative COVID-19 Clin Com See Note Imaging Diagnostic Imaging Impressions Head CT 08/24/23 20:20 IMPRESSION: No acute intracranial pathology. Chest X-Ray 08/25/23 02:00 IMPRESSION: Mild diffuse increased markings suspected to be chronic. No focal lung consolidation or pleural effusion Chest X-Ray 09/04/23 19:06 IMPRESSION: Hyperinflated lungs with no acute consolidation. Mild focal haziness in both upper lobes question postsurgical changes. Correlate clinically. Small 3 mm nodule right midlung. Ankle X-Ray 09/05/23 13:55 IMPRESSION: 1. Subtle nondisplaced fractures of the left medial and lateral malleoli with marked surrounding soft tissue swelling. 2. No acute fracture or malalignment at the pelvis, left hip, and left knee. 3. Minimal osteoarthritis in the left knee. 4. Degenerative disc disease in the lower lumbar spine. 5. Osteopenia. Hip/Pelvis X-Ray 09/05/23 13:55 IMPRESSION: 1. Subtle nondisplaced fractures of the left medial and lateral malleoli with marked surrounding soft tissue swelling. 2. No acute fracture or malalignment at the pelvis, left hip, and left knee. 3. Minimal osteoarthritis in the left knee. 4. Degenerative disc disease in the lower lumbar spine. 5. Osteopenia. Knee X-Ray 09/05/23 13:55 IMPRESSION: 1. Subtle nondisplaced fractures of the left medial and lateral malleoli with marked surrounding soft tissue swelling. 2. No acute fracture or malalignment at the pelvis, left hip, and left knee. 3. Minimal osteoarthritis in the left knee. 4. Degenerative disc disease in the lower lumbar spine. 5. Osteopenia. Head CT 09/05/23 14:03 IMPRESSION: No acute intracranial process seen. . DS: Summary Hospital Course Hospital Course: HPI: Subjective Notes: [place]oto Warning (given and shows understanding) and Conditional Voluntary Narrative: Mrs. Horton is a 72 year-old woman with a hx of psychosis and delusions for the past 3 years. This is her first psychiatric admission. She self presented reporting feeling fear and anxiety related to neighbors trying to kill her. Pt reports that she hears her neighbors talking about her and talking about how they will kill her. She hears them while she is in her room and they are in their house. She reports she hears them say that they want to twist her neck like a chicken. She also reports she has heard them say just poison her. She reports she sees their feet but has not seen there faces in the house. She reports she has not been touch by them but she constantly hear them. She denies SI/HI. She reports poor sleep at home because she was worried she would be killed at night. She reports regular appetite. She reports episodes of shooting pain from neck to spine, at times she reports this are electrical currents sent by her neighbors. She also reports she suspects neighbors are building an underground tunnel to connect their house and have access to hers. She reports they have stolen her jewelry. She denies suicidal or homicidal ideation. She reports poor sleep due to fear she will be killed at night. She reports fair appetite. She reports she has not hear neighbors in the hospital. She was started on risperidone while in the ED. Past Psychiatric History: inpatient: none prior to this one OP:Trinity Gamez APRN Past med trials: duloxetine, risperidone Medical Evaluation Reviewed: Yes HOSPITAL COURSE On the unit, Mrs. Horton was admitted on a CV and placed on 15 minutes checks for safety. Pt presented with paranoid/persecutory delusions related to the neighbors trying to kill her. After discussing risks, benefits and alternative treatment options, pt agreed to start risperidone, which was titrated to 1mg po BID. Her paranoid delusions and fearful affect gradually decreased and patient presented as more visible on the unit, brighter. She denied suicidal or homicidal ideation through the hospital stay. Her stay was complicated by patient getting covid while on the unit. She recovered without any complications. She was started on paxlovix. She also felt and had ankle fracture. She was seen by orthopedics. She was placed on boot. She has been ambulating with walker. She needs to have another ankle xray around 10/21/2023 and follow up OP with ortho. She also has to follow up with physical therapy as ankle heals. Mrs. Horton has chronic pain of what seems to be multiple source. Pt reports she has been dx with arthritis and fibromyalgia. She came with oxycodone 15mg po q4h, prn however, pt appeared somewhat somnolent with this dose. oxycodone was gradually decrease as other therapies were scheduled such as tylenol and gabapentin. She appeared to tolerate these changes in medications. Of question is whether autoimmunune condition has progressed and also contributes to overall joint pain. Pt recommended to follow up with rheumatology as she has not been seen since dx of kadi back in 2014. Status at Discharge Cognitive/behavioral status at discharge: Pt with brighter affect. No SI/HI. No VH/AH. No delusions- certainly pt's paranoid delusions significantly decreased. No signs of aggression towards self or others. Functional status at discharge: uses cane/walker Overall status at discharge: patient is progressing back to baseline Time Spent with Patient Time attestation: Total time managing care of this patient today ____ minutes. Time spent: Greater than 30 minutes Discharge Plan Discharge Anticipated Discharge Date/Time: 09/23/23 09:24 Patient Disposition: Home, Self-Care Discharge Diagnosis: delusional disorder Referrals: Trinity Gamez [employer] D[employer]XIDE OPERATOR - Prescriber - [facility] [Other] - 10/07/23 3:00 pm Mayra Gonzalez - Bioinformatics Developer - [facility] [Other] - 1 Week (Services: Meals on Wheels; House Keeping, and Home Health Aid. * Services begin on Saturday afternoon upon return home. * Patient will accept services, and will not decline or rhiannon service staff away. ) [facility] - Nurse : [employer] ([facility] [Other] - 1 Week (Services will resume on Saturday upon patient's discharge. VNA services will be daily. ) Adarsh Boone DO, MD [Primary Care Provider] - 09/26/23 11:30 am (This appointment is by Telephone, not in-person. ) Discharge Medications: New acetaminophen 325 mg Tablet 650 mg PO TID Qty: 0 0RF trazodone 50 mg Tablet 50 mg PO BEDTIME PRN (Reason: Insomnia) Qty: 30 0RF sennosides-docusate sodium [Senna Plus] 8.6-50 mg Tablet 1 tab PO BID Qty: 60 0RF diazepam 2 mg Tablet 2 mg PO TID PRN (Reason: Anxiety/Restlessness) Qty: 0 0RF gabapentin 100 mg Capsule 100 mg PO TID Qty: 90 0RF risperidone 1 mg Tablet 1 mg PO BID Qty: 60 0RF oxycodone 5 mg Tablet 5 mg PO Q6H PRN (Reason: Pain, Severe (Pain Scale 7-10)) Qty: 0 0RF Rx Instructions: Partial Fill upon patient request. lidocaine [Lidocaine Pain Relief] 4 % Adhesive Patch,Medicated 1 patch transdermal DAILY Qty: 30 0RF Protocol: Apply to: Apply to: lower back Continued atorvastatin 40 mg tablet 40 mg PO DAILY omeprazole 40 mg capsule,delayed release(DR/EC) 40 mg PO BID levothyroxine 100 mcg tablet 100 mcg PO QAM dicyclomine 20 mg tablet 20 mg PO TID albuterol sulfate 2 mg tablet 2 mg PO QID PRN (Reason: Shortness Of Breath Or Wheezing) metoprolol tartrate 25 mg tablet 12.5 mg PO BID valacyclovir 500 mg Tablet 500 mg PO DAILY aspirin 81 mg Tablet,Delayed Release (Dr/Ec) 81 mg PO DAILY Discontinued oxycodone 15 mg tablet 15 mg PO Q4H PRN (Reason: chronic pain) sertraline 25 mg tablet 50 mg PO DAILY diazepam 5 mg tablet 5 mg PO TID PRN (Reason: Muscle Spasm) hydroxyzine HCl 25 mg tablet 25 mg PO BEDTIME PRN (Reason: Insomnia) Discharge Orders: Discharge Order (Routine); Ordered 09/23/23 Ordered By: Alissa Martino Diet: Regular diet Activity on Discharge: Use cane or walker Stand Alone Forms: Patient Portal Discharge page Care Plan Goals: 1. Maintain mood 2. No SI/HI 3. No overt VH/AH/delusions Health Concerns: Follow up with Ortho- ankle fracture Follow up with rheumatology- progression of autoimmune condition Follow up with PCP- routine care Follow up with pain management- oxy decreased 5mg q6h prn Plan of Treatment: 1. Take medications as prescribed 2. Go to nearest ED or call 911 in event of emergency Assessment: Pt with brighter affect, future oriented. No SI/HI. No overt delusional content noted or reported. Sleeping well. Less paranoia towards neighbors. No aggression towards self or others. Discharge Date/Time: 09/23/23 11:00
--- NOTE | 2023-09-23 11:42 | PC.NURSE ---
Pt. alert and oriented X 4. Reports readiness for discharge. Denies anxiety/depression/SI/HI/perceptual disturbances. Medications and discharge instructions reviewed with pt., who verbalized understanding. Escorted off unit via WC at 11:00 by this lead technical writer to meet ride at main entrance.
== END 2023-09-23 11:00 | disposition home or self-care (01) | DRG 885 ==
LOC: HO.ED 08-28 12:50 → HO.PGERI 08-28 14:30
PROVIDERS: Admitting Provider Social Worker; Emergency Provider Internal Medicine; PCP Internal Medicine; Visit Provider Social Worker
DX: F22 Delusional disorders (principal); U07.1 COVID-19; E03.9 Hypothyroidism, unspecified; M35.02 Sjogren syndrome with lung involvement; S82.845A Nondisplaced bimalleolar fracture of left lower leg, initial encounter for closed fracture; W19.XXXA Unspecified fall, initial encounter; Z91.199 Patient's noncompliance with other medical treatment and regimen due to unspecified reason; Z79.82 Long term (current) use of aspirin; Z79.890 Hormone replacement therapy; Z79.899 Other long term (current) drug therapy
CPT/HCPCS: 0241U; 36415; 70450; 71045; 73502; 73560; 73600; 80048; 80053; 80061; 80076; 80307; 81003; 82607; 83036; 83690; 84439; 84443; 85025; 86052; 87635; 93005; 97110; 97116; 97161; 99285; S9485

== ENCOUNTER → 2023-08-24 20:26 | Outpatient (BNV) | payer OTHER, SELFPAY | PROVIDERS: Emergency Provider Internal Medicine; PCP Internal Medicine; Visit Provider Psychiatry & Neurology Psychiatry | DX: F22 Delusional disorders (principal) | CPT/HCPCS: 90792; 99231; 99232; 99239; 99283; 99285 ==

== ENCOUNTER → 2023-08-26 09:43 | Outpatient (BNV) | payer MEDICARE, SELFPAY | PROVIDERS: Emergency Provider Internal Medicine; PCP Internal Medicine; Visit Provider Internal Medicine Cardiovascular Disease | DX: R00.1 Bradycardia, unspecified (principal); R94.31 Abnormal electrocardiogram [ECG] [EKG] | CPT/HCPCS: 93010 ==

== ENCOUNTER → 2023-08-28 14:25 | Outpatient (BNV) | payer MEDICARE, SELFPAY | PROVIDERS: Admitting Provider Social Worker; Emergency Provider Internal Medicine; PCP Internal Medicine; Visit Provider Physician Assistant | DX: S82.55XA Nondisplaced fracture of medial malleolus of left tibia, initial encounter for closed fracture (principal); S82.65XA Nondisplaced fracture of lateral malleolus of left fibula, initial encounter for closed fracture; W19.XXXA Unspecified fall, initial encounter | CPT/HCPCS: 99221 ==

== ENCOUNTER → 2023-08-28 14:25 | Outpatient (BNV) | payer MEDICARE, SELFPAY | PROVIDERS: Admitting Provider Social Worker; Emergency Provider Internal Medicine; PCP Internal Medicine; Visit Provider Psychiatry & Neurology Psychiatry | DX: F22 Delusional disorders (principal); F29 Unspecified psychosis not due to a substance or known physiological condition | CPT/HCPCS: 99231 ==

== ENCOUNTER 2023-10-24 09:32 | Outpatient (REF) | payer MEDICARE, SELFPAY | END 2023-10-24 09:33 | disposition home or self-care (01) | LOC: HO.HOSX 09:32 | PROVIDERS: Visit Provider Physician Assistant | DX: Z13.89 Encounter for screening for other disorder (principal) ==